=== PATIENT | male | born 1990 | race Caucasian/White ===

== ENCOUNTER 2020-02-18 21:51 | Emergency (ER) | payer OTHER, SELFPAY ==
[2020-02-18 21:54] VITALS: BP 142/99; PULSE 93; RESP 16; TEMP 37.4; O2SAT 96; BMI 18.7
[2020-02-18 22:15] VITALS: RESP 18
[2020-02-18 23:03] LABS: Hematocrit 40.5 % (42-52); Hemoglobin 13.2 g/dl (14.0-18.0); Mean Corpuscular HGB Conc 32.6 g/dl (31.0-36.0); Mean Corpuscular Volume 95.1 fL (80-98); Mean Platelet Volume 10.6 fL (9.4-12.4); Platelet Count 282 X10*3/uL (160-400); Red Blood Count 4.26 X10*6/uL (4.60-5.80); Red Cell Distribution Width 13.2 % (11.0-16.0); WBC ABN SCTR FOR CBC 1
[2020-02-18] MEDS: LORazepam 1 MG TABLET PO (23:09)
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
[2020-02-18 23:32] LABS: White Blood Count 10.2 X10*3/uL (4.8-10.8)
[2020-02-18 23:35] LABS: Amphetamine Screen Urine Not Detected (Not Detect); Barbiturates, Urine POSITIVE (Not Detect); Benzodiazepines Screen Urine POSITIVE (Not Detect); Cannabinoid Screen Urine POSITIVE (Not Detect); Cocaine Screen Urine POSITIVE (Not Detect); Neutrophils Percent Manual 58 % (45-73); Opiate Screen Urine POSITIVE (Not Detect); Phencyclidine Screen Urine Not Detected (Not Detect)
[2020-02-18 23:36] LABS: Atypical Lymph Absolute Manual 0.2 x10*3/uL; Atypical Lymphs Percent Manual 2 % (0-6); Band Neutrophils Percent 8 % (3-5); Lymphocytes Absolute Manual 2.7 X10*3/uL (0.6-4.8); Lymphocytes Percent Manual 26 % (20-40); Monocytes Absolute Manual 0.6 X10*3/uL (0.0-1.2); Monocytes Percent Manual 6 % (2-11); Neutrophils Absolute Manual 6.7 X10*3/uL (2.2-7.9); RBC Morphology NORMAL
[2020-02-18 23:37] LABS: Platelet Estimate NORMAL (NORMAL); Platelet Morphology Comment NORMAL
[2020-02-18 23:41] LABS: Alanine Aminotransferase 46 U/L (0-40); Albumin Level 3.9 g/dL (3.5-5.0); Alkaline Phosphatase 63 U/L (39-117); Anion Gap 13 (12-20); Aspartate Amino Transferase 40 U/L (5-37); Bilirubin Direct 0.2 mg/dL (0.0-0.5); Bilirubin Total 0.3 mg/dL (0.0-1.0); Blood Urea Nitrogen 17 mg/dL (9-16); Calcium 9.1 mg/dL (8.4-10.2); Carbon Dioxide 28 mmol/L (22-29); Chloride 102 mmol/L (96-108); Estimated Glomerular Filt Rate > 60; Glucose Random 84 mg/dL (60-115); Lipase < 4 U/L (8-78); Potassium 3.7 mmol/l (3.3-5.1); Sodium 139 mmol/L (135-145); Total Protein 7.4 g/dL (6.5-8.0)
[2020-02-19] VITALS (8 sets, daily range): BP systolic 106–124; BP diastolic 69–86; PULSE 52–70; RESP 16–18; TEMP 36.4–36.6; O2SAT 97–100
--- NOTE | 2020-02-19 00:17 | PC.NURSE ---
0000 patient sleeping at this time. rousable to voice. two sandwiches brought per request. airway remains patent. patient denies further needs at this time. sitter remains in close obs.
--- NOTE | 2020-02-19 00:58 | PC.NURSE ---
FAXED AND CALLED N. FAX CONFIRMED
--- NOTE | 2020-02-19 02:21 | PC.NURSE ---
ROUSABLE TO VOICE. SLEEPING AT THIS TIME. SKIN P/W/D. AIRWAY PATENT. DENIES NEEDS.
--- NOTE | 2020-02-19 07:46 | PC.NURSE ---
PT IS VAGUE. ANSWERING SOME QUESTIONS ASKED. ADDITIONAL ASSESSMENTS DEFERRED AT THIS TIME.
--- NOTE | 2020-02-19 10:37 | PC.NURSE ---
PT INQUIRING ABOUT [facility] EVAL. DOES EXPRESS INTEREST IN DETOX. SHANNON FROM CARE TEAM AWARE AND WILL ATTEMPT TO GET TEAM TO ASSESS PT. PT HERE FOR 12 HOURS
[2020-02-19] MEDS: LORazepam 1 MG TABLET PO ×2 (10:56→19:25)
--- NOTE | 2020-02-19 11:19 | PC.NURSE ---
Addendum entered by Cordelia Galvan 02/19/20 13:46: SPEAKING WITH [facility] AT THIS TIME Original Note: SPEAKING WITH CARE TEAM AT THIS TIME
[2020-02-19] MEDS: Nicotine Polacrilex 2 MG GUM BUCCAL (11:22)
--- NOTE | 2020-02-19 14:07 | PC.NURSE ---
PT SLEEPING, PT OBSERVER AT BEDSIDE. EATS BEDSEARCH
--- NOTE | 2020-02-19 14:45 | PC.NURSE ---
RN TO RN WITH AMALIA
--- NOTE | 2020-02-19 15:53 | PC.NURSE ---
Pt states he has not taken home meds in months.
--- NOTE | 2020-02-19 20:04 | PC.NURSE ---
Patient in bed lying, per report scored 6 on CIWA provider notified, ordered ativan 1 mg/administered as ordered. Will monitor the patient for withdrawal symptoms.
--- NOTE | 2020-02-19 21:56 | PC.NURSE ---
Patient in bed lying, compliant with vital assessment/unremarkable. Monitored for withdrawal/asymptomatic currently. Requested nicotine lozenge/provider notified/administered as ordered. Will continue to monitor.
--- NOTE | 2020-02-20 01:41 | PC.NURSE ---
Patient in bed appears sleeping, no distress observed/reported, currently monitored for withdrawal/asymptomatic, respiration +/=/non-labored bilaterally. Will continue to monitor.
[2020-02-20 02:30] VITALS: BP 117/81; PULSE 74; RESP 17; TEMP 36.8; O2SAT 100
[2020-02-20] MEDS: Nicotine Polacrilex 2 MG GUM BUCCAL (02:33)
[2020-02-20] MEDS: LORazepam 1 MG TABLET PO (02:33)
--- NOTE | 2020-02-20 02:35 | PC.NURSE ---
Patient symptomatic of withdrawal, scored 10 on COWS, provider notified/ordered Ativan 1 mg/administered as ordered. Will continue to monitor.
--- NOTE | 2020-02-20 04:47 | PC.NURSE ---
Patient in bed appears sleeping, no distress observed/reported, respiration +/=/non-labored bilaterally. Safety check maintained as ordered. Asymptomatic of withdrawal. Will continue to monitor.
--- NOTE | 2020-02-20 06:34 | PC.NURSE ---
Patient in bed appears sleeping. No distress observed/reported. Monitored for withdrawal/asymptomatic currently. Respiration +/=/non-labored bilaterally. Will continue to monitor.
[2020-02-20 09:46] VITALS: BP 95/59; PULSE 66; RESP 20; TEMP 36.3; O2SAT 97
== END 2020-02-20 10:08 | disposition home or self-care (01) ==
PROVIDERS: Emergency Provider Emergency Medicine
DX: F32.89 Other specified depressive episodes (principal); R45.851 Suicidal ideations; F14.10 Cocaine abuse, uncomplicated; F12.10 Cannabis abuse, uncomplicated; F11.10 Opioid abuse, uncomplicated; F17.200 Nicotine dependence, unspecified, uncomplicated
CPT/HCPCS: 36415; 80048; 80076; 80307; 83690; 85007; 85027; 99285

== ENCOUNTER 2023-12-08 12:52 | Emergency (ER) | payer OTHER, SELFPAY ==
[2023-12-08 13:00] VITALS: BP 184/82; PULSE 114; O2SAT 99
[2023-12-08 13:09] VITALS: BP 000/00; PULSE 0; RESP 22; TEMP 37; O2SAT 0; BMI 32.1
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
--- OUTSIDE RECORDS SUMMARY | 2023-12-08 13:24 | XMS_ITS | Continuity of Care Document ---
Author Organization [facility] Address [address] [place] [phone] Phone Care Team Providers Care Population Geneticist Name Role Phone MD Leander Desai Attending Provider [phone] DO Eugenio Ordonezyele K Primary Care Provider DO José Luis Akinyele K Referring Provider Care Teams Patient Care Team Team Status: Active Member Role Status Al Ordonez DO Primary Care Provider Active Visit Care Team Team Status: Active Member Role Status Al Ordonez DO Primary Care Provider Active Leander Desai MD Attending Provider Active Visit Care Team Team Status: Active Member Role Status Al Ordonez DO Primary Care Provider, Referr ing Provider Active Leander Desai MD Attending Provider Active Visit Care Team Team Status: Active Member Role Status Al Desai MD Attending Provider Active Gabi Ordonez DO Primary Care Provider Active Chief Complaint and Reason for Visit Chief Complaint Radiculopathy, LBP ( M54.17) Amb Documentation CONF. f/u requested by patient. 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 Fever Active Oral pain Active Alcohol dependence, continuous A ctive Opioid use disorder Active Opioid use disorder Active Alcohol use disorder Active Mild benzodiazepine use disorder Active Lymphadenopathy Active Paresthesia of right leg Active Continuous nicotine dependence A ctive Tobacco abuse Active Post-splenectomy Active Active intravenous drug use Acti ve Polysubstance abuse Active Abscess, dental Active Chest pain Active Inactive/Resolved Problems Medical Problem Onset Date Status Encounter for medication refill Resolved Fever Resolved Alcohol abuse Resolved Anxiety Resolved Alcohol use disorder Resolved Heroin use disorder, severe Reso lved Blister of forearm, right Resolv ed Medications Medication Status Dose Units Route Directions Qty Days St art Date End Date Instructions Pregabalin Discontin ued 150 MG PO three times a day August 14, 2022 12:00am August 14, 2022 3:11pm Pregabalin Discontin ued 200 MG PO three times a day 90 August 14, 2022 12:00am September 30, 2022 3:34pm Partial fill upon patient request. This medication has a sedative effect, causing drowsiness, dizziness or light-headedn ess and may affect the ability to drive or operate machinery safely. Use of alcohol or cannabis while taking this medicine can result in increased sedative effect and greater impediment to driving or operating machinery safely. Pregabalin Active 300 MG PO twice a day 120 M 2022 12:00am Cyclobenzapri ne Active 10 MG PO three times a day 180 September 30, 2022 12:00am 1 pill (5 mg) 3 times daily as needed. May increase to 2 pills (10 mg) 3 times daily as needed. Duloxetine Discontin ued 20 MG PO twice a day 60 September 29, 2022 12:00am September 30, 2022 2:41pm Start one pill daily. After one week increase to one pill twice daily. Methadone Active 40 MG PO daily November 29, 2019 12:00am Loperamide Discontin ued 2 MG PO every 2-4 hours 20 [facility] [place] 2019 12:00am August 14, 2022 2:08pm after each loose stool until symptoms controlled; do not exceed 8 mg total dose in 24 hrs Ibuprofen Active 800 MG PO every 6 hr (04,10,16,2 2) 60 [facility] 2019 12:00am Ondansetron Discontin ued 4 MG PO every 6 hr (04,10,16,2 2) 20 [facility] 2019 12:00August 14, 2022 2:08pm Metoclopramid e Hcl (Reglan) 10 mg tablet Discontin ued 10 MG PO every 6 hr (04,10,16,2 2) 20 March 13, 2020 12:00am Novemb er 2019 1:02am Clonidine Hcl Discontin ued 0.1 MG PO twice a day 6 March 13, 2020 12:00am Octobe r 2019 12:02a m Clonidine Hcl Discontin ued 0.1 MG PO three times a day 9 Novembe r 2019 1:00am August 14, 2022 2:08pm Folic Acid Discontin ued 1 MG PO daily January 08, 2020 12:00am August 14, 2022 2:08pm Amoxicillin-P ot Clavulanate Discontin ued 1 TAB PO every 12 hours January 08, 2020 12:00am January 14, 2020 10:36a m Thiamine Mononitrate (Vit B1) (Vitamin B-1 (Mononitrate) ) 100 mg Tablet Discontin ued 100 MG PO daily January 08, 2020 12:00am August 14, 2022 2:08pm Amoxicillin-P ot Clavulanate Discontin ued 1 TAB PO every 12 hours 05 03January 14, 2020 10:36am January 14, 2020 10:37a m Amoxicillin-P ot Clavulanate Discontin ued 1 TAB PO every 12 hours 05 03January 14, 2020 10:37am July 20, 2022 1:30pm Immunizations Immunization Event Date Not Given Reason Dose Number [employer] Lot Number Vaccine Information Statement (VIS) Detail Influenza, MDCK, Quad, w/ Preservative February 26, 2022 COVID-19 VACC Pfizer December 06, 2020 COVID-19 VACC Pfizer December 27, 2020 COVID-19 VACC Pfizer Tri-sucrose August 15, 2021 Influenza, quadrivalent, with preservative February 14, 2017 Vital Signs Vital Reading Result Reference Range Collection Date/Time Height 74 [in_i] September 30, 2022 2:41pm Weight 102.05 kg September 30, 2022 2:41pm Body Temperature 98.1 [degF] 97.5-99.6 September 30, 2 023 2:41pm Heart Rate 100 /min 50-90 September 30, 2022 2:41pm Respiratory rate 16 /min 14-20 September 30, 2 023 2:41pm Oxygen saturation by Pulse oximetry 96 % 90-10 0 September 30, 2022 2:41pm BP Systolic 128 mm[Hg] 90-130 September 30, 2022 2:41pm BP Diastolic 78 mm[Hg] 60-90 September 30, 2022 2:41pm BMI (Body Mass Index) 28.8 kg/m2 September 302022 2:41pm Insurance Providers Guarantor Kyle Young Address [address] [address] Contact Info. Home Phone: Payer Policy Id Coverage Id Subscriber's Name Subscriber Id Effective Date Expiration Date [employer] Nhp [id number] Kyle Peich [id number] [facility] Careplus [id number] Kyle Borregoch [id number] [place] Non Managed Care [id number] Kyle Borregoch [id number] [facility] [id number] Kyle Peich [id number] [facility] Q [id number] Kyle Borregoch Self Pay Insurance Self N/A [employer] [id number] Kyle Peich [id number] Encounters Encounter Location(s) Arrival/Admit Date Discharge/Depart Date Provider(s) Registered [facility] [place] September 24, 2022 2:30pm LEANDER DESAI MD Non-patient / Non-visit [place] [facility]-Ambulat ory Sched (DO NOT USE) September 29, 2022 9:31am LEANDER DESAI MD Non-patient / Non-visit [facility] September 30, 2022 2:36pm LEANDER DESAI MD Recent Diagnosis Onset Date Lumbosacral radiculopathy at S1 Assessments Diagnosis Onset Date Resolution Status Lumbosacral radiculopathy at S1 noneactive Plan of Treatment Future Tests Future scheduled test information is unavailable Pending Tests Pending diagnostic test information is unavailable Future Visits Future appointment information is unavailable Referrals to Other Providers Reason for Referral Referral Start Date Provider Provider Contact Information Provider Address U92.17 - Radiculopathy, lumbosacral region September 30, 2022 Suhail Coyne MD Work Phone: [phone] [facility] PAIN MANAGEMENT [facility] [address] Future Procedures Future procedure information is unavailable Future Medications Future medication information is unavailable Patient Instructions Patient instructions are unavailable Hospital Discharge Instructions Ambulatory Orders* Pain management referral Time Frame: 09/30/22, Location: None Selected
--- OUTSIDE RECORDS SUMMARY | 2023-12-08 13:24 | XMS_ITS | Continuity of Care Document ---
Author Organization [facility] Address [address] [place] [phone] Phone Care Team Providers Care Box Truck Driver Name Role Phone MD Leander Desai Attending Provider DO Eugenio Ordonezyele K Primary Care Provider [...] f/u requested by patient. 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 Inactive/Resolved Problems Medical Problem Onset Date [...] 2 MG PO every 2-4 hours 20 [facility] [place] [place] 2019 12:00am August 14, 2022 2:08pm after each loose stool until symptoms controlled; do not exceed 8 mg total dose in 24 hrs Ibuprofen Active 800 MG PO every 6 hr (04,10,16,2 2) 60 [facility] [place] [place] 2019 12:00am Ondansetron Discontin ued 4 MG PO every 6 hr (04,10,16,2 2) 20 [facility] [place] [place] 2019 12:00am August 14, 2022 2:08pm Metoclopramid e Hcl (Reglan) [...] Event Date Not Given Reason Dose Number Fire [employer] 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 Home Phone: Payer Policy Id Coverage Id Subscriber's Name Subscriber Id Effective Date Expiration Date [employer] Nhp [id number] Kyle Young [id number] [facility] Careplus [id number] Kyle Young [id number] [place] Non Managed Care [id number] Kyle Young [id number] [place] [id number] Kyle Young [id number] [facility] Q [id number] Kyle Young Self Pay Insurance Self N/A [employer] [id number] Kylefranco Young [id number] Encounters Encounter Location(s) Arrival/Admit Date Discharge/Depart Date Provider(s) Registered [facility] [place] September 24, 2022 2:30pm LEANDER DESAI MD Non-patient / Non-visit [place] [facility]-Ambulat ory Sched (DO NOT USE) September 29, 2022 9:31am LEANDER DESAI MD Non-patient / Non-visit [facility] September 30, 2022 2:36pm LEANDER DESAI MD Recent Diagnosis Onset Date Low testosterone in male Lumbosacral radiculopathy at S1 Assessments Diagnosis Onset Date Resolution Status Low testosterone in male non eactive Lumbosacral radiculopathy at S1 noneactive Plan of Treatment Future Tests Future scheduled test information is unavailable Pending Tests Pending diagnostic test information is unavailable Future Visits Future appointment information is unavailable Referrals to Other Providers Reason for Referral Referral Start Date Provider Provider Contact Information Provider Address M54.17 - Radiculopathy, lumbosacral region,R79.89 - Other specified abnormal findings of blood chemistry September 30, 2022 [facility] Endocrinology M54.17 - Radiculopathy, lumbosacral region September 30, 2022 Suhail Coyne MD Work Phone: [address] [place] [address] [address]LO[address] [facility] PAIN MANAGEMENT [facility] [address] Future Procedures Future procedure information is unavailable Future Medications Future medication information is unavailable Patient Instructions Patient instructions are unavailable Hospital Discharge Instructions Ambulatory Orders* Endocrinology referral Time Frame: 09/30/22, Location: None Selected * Pain management referral Time Frame: 09/30/22, Location: None Selected
--- OUTSIDE RECORDS SUMMARY | 2023-12-08 13:24 | XMS_ITS | Continuity of Care Document ---
Author Organization [facility] Address [address] [place] [address] Phone Care Team Providers Care Enhanced Environmental Operator Name Role Phone DO Eugenio Ordonezyele K Primary Care Provider José Luis, DO Akinyele K Referring Provider DIANDRA Cronin Attending Provider Care Teams Patient Care Team Team Status: Active Member Role Status Al Coyne MD Pain Clinic, MD Active Rachelle Nicholas NP Pain Clinic, DIRECTOR CORPORATE Active Gabi Ordonez DO Primary Care Provider Active Patient Care Team Team Status: Active Member Role Status Dates Gabi Ordonez , DO Primary Care Provider Active Ko Cronin , IT SOLUTIONS ARCHITECT Attending Provider Active Visit Care Team Team Status: Active Member Role Status Dates Gabi Ordonez , DO Primary Care Provider, Referr ing Provider Active Ko Cronin IT SOLUTIONS ARCHITECT Attending Provider Active Visit Care Team Team Status: Inactive Member Role Status Dates Gabi Ordonez , DO Primary Care Provider Active Ko Cronin , IT SOLUTIONS ARCHITECT Attending Provider Active Chief Complaint and Reason for Visit Chief Complaint CONF 02/24 F/u Dr Nicolas astudillo's pt. LABWORK Reason for Visit Lumbosacral radiculo shruti at S1 Allergies, Adverse Reactions, Alerts No known allergies Social History Smoking Status Status Start Date End Date Date of Observa tion Smoker (finding) February 10:58am Additional Data Assigned Sex Male Problems Active [...] to driving or operating machinery safely. Pregabalin Discontin ued 300 MG PO twice a day 120 September 30, 2022 12:00am 2022 4:04pm Cyclobenzapri ne Discontin ued 10 MG PO three times a day 180 September 30, 2022 12:00am October 06, 2022 3:51pm 1 pill (5 mg) 3 times daily as needed. May increase to 2 pills (10 mg) 3 times daily as needed. Pregabalin Discontin ued 150 MG PO twice a day 60 October 02, 2022 12:00am 2022 4:04pm Take 1 pill (150 mg) in afternoon and evening. Take this in addition to a single 300 mg dose in the morning. Duloxetine Discontin ued 20 MG PO twice a day 60 September 29, 2022 12:00am September 30, 2022 2:41pm Start one pill daily. After one week increase to one pill twice daily. Methadone Discontin ued 40 MG PO daily November 29, 2019 12:00am December 31, 2022 8:24am Methadone Active 115 MG PO daily December 31, 2022 8:23am Loperamide Discontin ued 2 MG PO every 2-4 hours [facility] [place] 12:00am August 14, 2022 2:08pm after each loose stool until symptoms controlled; do not exceed 8 mg total dose in 24 hrs Ibuprofen Active 800 MG PO every 6 hr (04,10,16,2 2) 60 [facility] [place] 2019 12:00am Ondansetron Discontin ued 4 MG PO every 6 hr (04,10,16,2 2) 20 [facility] [place] 2019 12:00am August 14, 2022 2:08pm Metoclopramid e Hcl (Reglan) 10 mg tablet Discontin ued 10 MG PO every 6 hr (04,10,16,2 2) 03 10March 13, 2020 12:00am Novem er 2019 1:02am Clonidine Hcl Discontin ued 0.1 MG PO twice a day 6 March 13, 2020 12:[facility]am [facility] 12:02a m Clonidine Hcl Discontin ued 0.1 MG PO three times a day 9 [facility] r 2019 1:00am August 14, 2022 2:08pm [...] 14, 2020 10:37am July 20, 2022 1:30pm Pregabalin Active 300 MG PO twice a day 120 [facility] 2022 4:04pm Pregabalin Active 150 MG PO twice a day 60 [facility] 2022 4:04pm Take 1 pill (150 mg) in afternoon and evening. Take this in addition to a single 300 mg dose in the morning. Immunizations Immunization Event Date Not Given Reason Dose Number Seismograph Helper Lot Number Vaccine Information Statement (VIS) Detail Influenza, MDCK, Quad, w/ Preservative February 26, 2022 COVID-19 VACC Pfizer December 06, 2020 COVID-19 VACC Pfizer December 27, 2020 COVID-19 VACC Pfizer Tri-sucrose August 15, 2021 Influenza, quadrivalent, with preservative February 14, 2017 Relevant Diagnostic Tests and/or Laboratory Data Laboratory Results Test Date/Time Result Interpretation Reference Range Result Comment Performing Site White Blood Count February 25, 2023 11:48am 8.1 K/mm3 4.0-11.0 [place] [id number] [address] [place] [address]34 Red Blood Count February 25, 2023 11:48am 5.35 M/uL 4.20-5.80 [place] [id number] [address] [place] [address] 18091 Hemoglobin February 25, 2023 11:48am 16.7 gm/dL 12.5-17.0 [facility] [id number] [address] [place] [address]64 Hematocrit February 25, 2023 11:48am 51.5 % 37.0-50.0 [facility] [id number] [address] [place] [address] 48991 Mean Corpuscular Volume February 25, 2023 11:48am 96.3 FL 80.0-100.0 [facility] [id number] [address] [place] [address] 85246 Mean Corpuscular Hemoglobin Concent February 25, 2023 11:48am 32.4 % 32-37 [facility] [id number] [address] [place] [address] 61342 Red Cell Distribution Width February 25, 2023 11:48am 14.9 % 11.5-16.0 [facility] [id number] [address] [place] [address] 62205 Platelet Count February 25, 2023 11:48am 331 K/uL 140-400 [place] [id number] [address] [place] [address] 16624 Mean Platelet Volume February 25, 2023 11:48am 10.9 FL 8.6-12.5 [facility] [id number] [address] [place] [address] 76897 Nucleated Red Blood Cells % (auto) February 25, 2023 11:48am 0.0 % 0.0-0.7 [place] [id number] [address] [place] [address] 76128 Neutrophils (%) (Auto) February 25, 2023 11:48am 45.3 % [address] [place] [address] 88323 Lymphocytes (%) (Auto) February 25, 2023 11:48am 38.7 % [place] [id number] [address] [place] [address] 60592 Monocytes (%) (Auto) February 25, 2023 11:48am 11.4 % [id number] [place] [address] 36707 Eosinophils (%) (Auto) February 25, 2023 11:48am 3.1 % [id number] [place] [address] 39805 Basophils (%) (Auto) February 25, 2023 11:48am 1.4 % [id number] [place] [address] 98173 Immature Granulocyte % (Auto) February 25, 2023 11:48am 0.1 % [place] [id number] [address] [place] [address]24 Neutrophils # (Auto) February 25, 2023 11:48am 3.65 K/uL 1.50-7.50 [place] [id number] [address] [place] [address] 78255 Lymphocytes # (Auto) February 25, 2023 11:48am 3.12 K/uL 1.00-4.50 [place] [id number] [address] [place] [address] 40513 Monocytes # (Auto) February 25, 2023 11:48am 0.92 K/uL 0.00-0.80 [address] [place] [address] 56536 Eosinophils # (Auto) February 25, 2023 11:48am 0.25 K/uL 0.00-0.40 [place] [id number] [address] [place] [address] 15424 Basophils # (Auto) February 25, 2023 11:48am 0.11 K/uL 0.00-0.20 [facility] [id number] [address] [place] [address] 15045 Immature Granulocyte # (Auto) February 25, 2023 11:48am 0.01 K/uL 0.00-0.10 [facility] [id number] [address] [place], [place] [address] Hemoglobin A1c February 25, 2023 11:48am 5.3 % 4.4-6.3 [facility] [id number] [address] [place] [address] 88886 Sodium Level February 25, 2023 11:48am 139 mEq/L 133-145 [facility] [id number] [address] [place] [address] 65592 Potassium Level February 25, 2023 11:48am 4.7 mEq/L 3.5-5.1 Please note new reference range. [facility] [id number] [address] [place] [address] Chloride Level February 25, 2023 11:48am 102 mEq/L 98-107 [facility] [id number] [address] [place] [address] 28277 Carbon Dioxide Level February 25, 2023 11:48am 31 mEq/L 22-31 [facility] [id number] [address] [place] [address] 69997 Anion Gap February 25, 2023 11:48am 6 mEq/L 5-15 [facility] [id number] [address] [place], [place] [address] Blood Urea Nitrogen February 25, 2023 11:48am 12 mg/dL 9-21 Please note new reference range. [facility] [id number] [address] [place], [place] [address] Creatinine February 25, 2023 11:48am 1.13 mg/dL 0.00-1.30 [facility] [id number] [address] [place], [place] [address] Pharmacy Creatinine Clearance (Chem February 25, 2023 11:48am Not Reportable [facility] [id number] [address] [place], [place] [address] Estimat Glomerular Filtration Rate February 25, 2023 11:48am > 60 Units: mL/min/1.73 [id number] GFR (eGFR) should not be used for patients with acute kidney injury or ESRD (creatinine should be at steady state and stable to use). eGFR is calculated using the National Kidney Foundation 2020 CKD-EPI creatinine equation, which is now the recommended equation to estimate GFR based on creatinine per latest KDIGO (Kidney Disease Improving Global Outcomes) Guidelines. KDIGO recommends CKD now be classified based on cause, GFR category, and albuminuria category. GFR categories will not be reported by the lab for G1 or G2 (eGFR >60). GFR categories should be assigned as: eGFR 45-59= G3a (mildly to moderately decreased), eGFR 30-44= G3b (moderately to severely decreased), eGFR 15-29 G4 (severely decreased), eGFR<15 G5 (kidney failure). [facility] [id number] [address] [place] [address] 77745 Glucose Level February 25, 2023 11:48am 85 mg/dL 70-100 Fasting Reference Interval: 70-100mg/dLN on-fasting Reference Interval: 70-140mg/dL [place] [id number] [address] [place] [address] Calcium Level February 25, 2023 11:48am 9.6 mg/dL 8.4-10.4 Please note new reference range. [facility] [id number] [address] [place] [address] 31386 Total Bilirubin February 25, 2023 11:48am 0.5 mg/dL 0.2-1.2 [place] [id number] [address] [place] [address] 47572 Direct Bilirubin February 25, 2023 11:48am 0.1 mg/dL 0.0-0.5 [place] [id number] [address] [place] [address] 52216 Aspartate Amino Transf (AST/SGOT) February 25, 2023 11:48am 24 IU/L 5-34 [facility] [id number] [address] [place] [address] 32145 Alanine Aminotransferase (ALT/SGPT) February 25, 2023 11:48am 31 IU/L 0-55 [place] [id number] [address] [place] [address] 33222 Total Protein February 25, 2023 11:48am 7.7 g/dL 6.0-8.3 [place] [id number] [address] [place] [address] 82307 Albumin February 25, 2023 11:48am 3.9 g/dL 2.8-5.4 [facility] [id number] [address] [place] [address] 67526 Alkaline Phosphatase February 25, 2023 11:48am 58 IU/L 40-150 Please note new reference range. [facility] [id number] [address] [place] [address] 96265 Vitamin B12 Level February 25, 2023 11:48am 646 pg/mL 213-816 [facility] [id number] [address] [place] [address] 21285 Folic Acid (LAB) February 25, 2023 11:48am 12.6 ng/mL 7.0-31.4 Please note new reference range. [facility] [id number] [address] [place] [address] 55758 Thyroid Stimulating Hormone (TSH) February 25, 2023 11:48am 1.14 uIU/mL 0.35-4.94 Please note new reference range. [facility] [id number] [address] [place] [address] 54877 Vital Signs Vital Reading Result Reference Range Collection Date/Time Heart Rate 72 /min 50-90 February 25, 2 023 11:00am Respiratory rate 15 /min 14-20 February 11:00am Oxygen saturation by Pulse oximetry 97 % 90-100 February 25, 2023 1 1:00am BP Systolic 123 mm[Hg] 90-130 February 25, 2 023 11:00am BP Diastolic 75 mm[Hg] 60-90 February 25, 2 023 11:00am Insurance Providers Guarantor Kyle Young Address [address] [address] Contact Info. Home Phone: Payer Policy Id Coverage Id Subscriber's Name Subscriber Id Effective Date Expiration Date [employer] [id number] Kyle Young [id number] [facility] Careplus [id number] Kyle Young [id number] [facility] Medicaid Non Managed Care [id number] Kyle Young [id number] [facility] [id number] Kyle Young [id number] [facility] [id number] Kyle Young [facility] [id number] Kylefranco Young [id number] [facility] [id number] Kyle Young [id number] Self Pay Insurance Self N/A [facility] [id number] Kyle Salimasue [id number] [employer] [id number] Kyle Borrego [id number] Encounters Encounter Location(s) Arrival/Admit Date Discharge/Depart Date Provider(s) Non-patient / Non-visit [facility] February 25, 2023 10:51am ANP- Ko Cronin Departed Clinical [facility]-Lab Draw - [facility] February 25, 2023 11:31am February 25, 2023 11:32am JULIANA Cronin Non-patient / Non-visit [facility]-Ambulat ory Sched (DO NOT USE) February 26, 2023 7:52am ANP- Ko Cronin Recent Diagnosis Onset Date Lumbosacral radiculopathy at S1 Assessments Diagnosis Onset Date Resolution Status Lumbosacral radiculopathy at S1 noneactive Plan of Treatment Future Tests Future scheduled test information is unavailable Pending Tests Test Name Ordered Date Scheduled Date Methylmalonic Acid February 25, 2023 11:48am Vitamin B6 Level February 25, 2023 11:48am Thiamine (Vitamin B1) Measured February 25 11:48am Methylmalonic Acid February 25, 2023 11:17am Oc tober 2022 11:48am Future Visits Future appointment information is unavailable Referrals to Other Providers Reason for Referral Referral Start Date Provider Provider Contact Information Provider Address February 26, 2023 Suhail Coyne MD Work Phone: [address] [place], [place] [address] PAIN MANAGEMENT [facility] December 31, 2022 Suhail Coyne MD Work Phone: [address] PAIN MANAGEMENT [facility] [address] February 25, 2023 Prosper Wilson Jr MD Work Phone: [address] [place] [address] NEUROLOGY [facility] [address] M54.17 - Radiculopathy, lumbosacral region February 25, 2023 Physical Therapy - [place] Future Procedures Procedure Name Ordered Date Scheduled Date Vitamin B1(Thiamine), LC/MS/MS February 25 11:17am February 25, 2023 11:48am Vitamin B6 (pryidoxine) February 25, 2023 11:17 am February 25, 2023 11:48am Future Medications Future medication information is unavailable Patient Instructions Patient instructions are unavailable Hospital Discharge Instructions Ambulatory Orders* AUSTIN ESTEVAN Lumbar Time Frame: 02/26/23, Location: None Selected
--- OUTSIDE RECORDS SUMMARY | 2023-12-08 13:24 | XMS_ITS | Continuity of Care Document ---
Author Organization [facility] Address [address] [place] [phone] Phone Care Team Providers Care Supervisor Mapping Name Role Phone DO Gabi Ordonez Primary Care Provider DO Gabi Ordonez Referring Provider DIANDRA Nicholas Attending Provider [phone] Care Teams Patient Care Team Team Status: Active Member Role Status Al Coyne MD Pain Clinic, MD Active Rachelle Nicholas NP [facility] Clinic, TRAVEL PTA Active Gabi Ordonez DO Primary Care Provider Active Patient Care Team Team Status: Active Member Role Status Al Ordonez DO Primary Care Provider, Referr ing Provider Active Rachelle Nicholas NP Attending Provider Active Chief Complaint and Reason for Visit Chief Complaint conf f/u wants anoth er injection Reason for Visit Lumbosacral radiculo shruti at S1 Myofascial muscle pain Allergies, Adverse Reactions, Alerts No known allergies Social History Smoking Status Status Start Date End Date Date of Observa tion Smoker (finding) May 3:49pm Additional Data Assigned Sex Male Problems Active [...] nicotine dependence A ctive Tobacco abuse Active Myofascial muscle pain Active Post-splenectomy Active Active intravenous drug use [...] MG PO three times a day August 13, 2022 11:00pm August 14, 2022 2:11pm Pregabalin Discontin ued 200 MG PO three times a day 90 August 13, 2022 11:00pm September 30, 2022 2:34pm Partial fill upon patient request. This medication has a sedative effect, causing drowsiness, dizziness or light-headedn ess and may affect the ability to drive or operate machinery safely. Use of alcohol or cannabis while taking this medicine can result in increased sedative effect and greater impediment to driving or operating machinery safely. Pregabalin Discontin ued 300 MG PO twice a day 120 September 29, 2022 11:00pm 2022 3:04pm Cyclobenzapri ne Discontin ued 10 MG PO three times a day 180 September 29, 2022 11:00pm October 06, 2022 2:51pm 1 pill (5 mg) 3 times daily as needed. May increase to 2 pills (10 mg) 3 times daily as needed. Pregabalin Discontin ued 150 MG PO twice a day 60 October 01, 2022 11:00pm 2022 3:04pm Take 1 pill (150 mg) in afternoon and evening. Take this in addition to a single 300 mg dose in the morning. Duloxetine Discontin ued 20 MG PO twice a day 60 September 28, 2022 11:00pm September 30, 2022 1:41pm Start one pill daily. After one week increase to one pill twice daily. Methadone Discontin ued 40 MG PO daily November 28, 2019 11:00pm December 31, 2022 7:24am Methadone Active 120 MG PO daily December 31, 2022 7:23am Loperamide Discontin ued 2 MG PO every 2-4 hours 2019 11:00pm August 14, 2022 1:08pm after each loose stool until symptoms controlled; do not exceed 8 mg total dose in 24 hrs Ibuprofen Active 800 MG PO every 6 hr (04,10,16,2 2) 60 [facility] [place] 11:00pm Ondansetron Discontin ued 4 MG PO every 6 hr (04,10,16,2 2) 20 [facility] 2019 11:00pm August 14, 2022 1:08pm Metoclopramid e Hcl (Reglan) 10 mg tablet Discontin ued 10 MG PO every 6 hr (04,10,16,2 2) 03 10March 12, 2020 11:00pm [facility] 2019 12:02a m Clonidine Hcl Discontin ued 0.1 MG PO twice a day 6 March 12, 2020 11:00pm [facility] 11:02p m Clonidine Hcl Discontin ued 0.1 MG PO three times a day 9 2019 12:00am August 14, 2022 1:08pm Folic Acid Discontin ued 1 MG PO daily January 07, 2020 11:00pm August 14, 2022 1:08pm Amoxicillin-P ot Clavulanate Discontin ued 1 TAB PO every 12 hours January 07, 2020 11:00pm January 14, 2020 9:36am Thiamine Mononitrate (Vit B1) (Vitamin B-1 (Mononitrate) ) 100 mg Tablet Discontin ued 100 MG PO daily January 07, 2020 11:00pm August 14, 2022 1:08pm Amoxicillin-P ot Clavulanate Discontin ued 1 TAB PO every 12 hours 05 03January 14, 2020 9:36am January 14, 2020 9:37am Amoxicillin-P ot Clavulanate Discontin ued 1 TAB PO every 12 hours 05 03January 14, 2020 9:37am July 20, 2022 12:30p m Pregabalin Discontin ued 300 MG PO twice a day 120 [facility] 2022 3:04pm [facility] 2022 8:47am Pregabalin Discontin ued 150 MG PO twice a day 60 [facility] 2022 3:04pm [facility] 2022 8:47am Take 1 pill (150 mg) in afternoon and evening. Take this in addition to a single 300 mg dose in the morning. Pregabalin Discontin ued 300 MG PO twice a day 120 [facility] r 2022 8:47am Novemb er 2022 10:27a m Pregabalin Discontin ued 150 MG PO twice a day 60 Novem r 2022 8:47am Januar y 2023 11:37a m Take 1 pill (150 mg) in afternoon and evening. Take this in addition to a single 300 mg dose in the morning. Pregabalin Discontin ued 300 MG PO daily 30 Novem r 2022 10:26am Novemb er 2022 10:28a m Pregabalin Active 300 MG PO daily 30 Novem e r 2022 10:27am Take 2 (300mg) capsule in the morning. Immunizations Immunization Event Date Not Given Reason Dose Number Inspector Outside Production Lot Number Vaccine Information Statement (VIS) Detail Influenza, MDCK, Quad, w/ Preservative February 26, 2022 COVID-19 VACC Pfizer December 06, 2020 COVID-19 VACC Pfizer December 27, 2020 COVID-19 VACC Pfizer Tri-sucrose August 15, 2021 Influenza, quadrivalent, with preservative February 14, 2017 Vital Signs Vital Reading Result Reference Range Collection Date/Time Body Temperature 98.1 [degF] 97.5-99.6 May 11:18am Heart Rate 83 /min 50-90 June 16, 024 11:18am Respiratory rate 16 /min 14-20 May 11:18am Oxygen saturation by Pulse oximetry 95 % 90-100 June 16, 2023 1 1:18am BP Systolic 122 mm[Hg] 90-130 June 16, 2 024 11:18am BP Diastolic 74 mm[Hg] 60-90 June 16, 2 024 11:18am Insurance Providers Guarantor Kyle Young Address [address] [id number] Contact Info. Home Phone: Payer Policy Id Coverage Id Subscriber's Name Subscriber Id Effective Date Expiration Date [place] [employer] [facility] [id number] Kyle Young [id number] [facility] [id number] Kyle Young [id number] [facility] Medicaid Non Managed Care [id number] Kyle Young [id number] [place] [facility] [id number] Kyle Young [id number] [facility] Q [id number] Kyle Young [facility] [id number] Kyle Peich [id number] [facility] Dir Subsidized [id number] Kyle Young [id number] Self Pay Insurance Self N/A [facility] [id number] Kyle Peich [id number] [employer] [id number] Kyle Peich [id number] Encounters Encounter Location(s) Arrival/Admit Date Discharge/Depart Date Provider(s) Non-patient / Non-visit [facility] June 16, 2023 11:13am Rachelle Nicholas NP Recent Diagnosis Onset Date Lumbosacral radiculopathy at S1 Myofascial muscle pain Assessments Diagnosis Onset Date Resolution Status Lumbosacral radiculopathy at S1 noneactive Myofascial muscle pain nonea ctive Plan of Treatment Future Tests Future scheduled test information is unavailable Pending Tests Test Name Ordered Date Scheduled Date XR lumbar spine with flex/ext June 16, 2023 11:25am Future Visits Future appointment information is unavailable Referrals to Other Providers Reason for Referral Referral Start Date Provider Provider Contact Information Provider Address M54.17 - Radiculopathy, lumbosacral region June 16, 2023 [facility] [address] [place] [address] [address] [facility] [address] M54.17 - Radiculopathy, lumbosacral region June 16, 2023 Rl Houston MD Work Phone: [facility] Neurology Prof Services [address] [place] [address] M54.17 - Radiculopathy, lumbosacral region June 16, 2023 Suhail Coyne MD Work Phone: [address] [place] [address] PAIN MANAGEMENT [facility] [address] Future Procedures Procedure Name Ordered Date Scheduled Date Discharge per unit specific guidelines March 10, 2023 1:59pm March 10, 2023 1:59pm Future Medications Future medication information is unavailable Patient Instructions BFS Pain, Injection/Denervat ion, Post Op Discharge Instructions Hospital Discharge Instructions Ambulatory Orders* Osteopathic medicine referral Time Frame: 06/16/23, Location: None Selected * [facility] Referral Time Frame: 06/16/23, Location: None Selected
--- OUTSIDE RECORDS SUMMARY | 2023-12-08 13:24 | XMS_ITS | Continuity of Care Document ---
Author Organization [facility] Address [address] [place] [phone] Phone Care Team Providers Care Hpl[facility] Chemist Name Role Phone DO Gabi Ordonez Primary Care Provider DO Gabi Ordonez Referring Provider MD Suhail Coyne Attending Provider Care Teams Patient Care Team Team Status: Active Member Role Status Dates Suhail Coyne MD Pain Clinic, MD Active Rachelle Nicholas NP Pain Clinic, DIRECTOR MEETINGS Active Gabi Ordonez DO Primary Care Provider Active Visit Care Team Team Status: Active Member Role Status Al Ordonez DO Primary Care Provider, Referr ing Provider Active Suhail Coyne MD Attending Provider Active Chief Complaint and Reason for Visit Chief Complaint tpi Allergies, Adverse Reactions, Alerts No known allergies Social History Smoking Status Status Start Date End Date Date of Observa tion Smoker (finding) June 11:25am Additional Data Assigned Sex Male Problems Active [...] 300 mg dose in the morning. Pregabalin Active 300 MG PO at bedtime 30 2023 12:00am Partial fill upon patient request. This medication has a sedative effect, causing drowsiness, dizziness or light-headedn ess and may affect the ability to drive or operate machinery safely. Use of alcohol or cannabis while taking this medicine can result in increased sedative effect and greater impediment to driving or operating machinery safely. Duloxetine Discontin ued 20 MG PO twice [...] [facility] August 14, 2022 1:08pm after each loose stool until symptoms controlled; do not exceed 8 mg total dose in 24 hrs Ibuprofen Active 800 MG PO every 6 hr (04,10,16,2 2) 60 [facility] [place] 11:00pm Ondansetron Discontin ued 4 MG PO every 6 hr (04,10,16,2 2) [facility] 11[facility] August 14, 2022 1:08pm Metoclopramid e Hcl (Reglan) 10 mg tablet Discontin ued 10 MG PO every 6 hr (04,10,16,2 2) 03 10March 12, 2020 11:00pm [facility] er 2019 12:02a m Clonidine Hcl Discontin ued 0.1 MG PO twice a day 10 17March 12, 2020 [facility] 11:02p m Clonidine Hcl Discontin ued 0.1 MG PO three times a day 9 [facility] r 2019 12:00am August 14, 2022 1:08pm Folic [...] 300 MG PO twice a day 120 [facility] [place] 2022 3:04pm [facility] er 2022 8:47am Pregabalin Discontin ued 150 MG PO twice a day 60 [place] er 2022 3:04pm Novemb er 2022 8:47am Take 1 pill (150 mg) in afternoon and evening. Take this in addition to a single 300 mg dose in the morning. Pregabalin Discontin ued 300 MG PO twice a day 120 be r 2022 8:47am Novemb er 2022 10:27a m Pregabalin Discontin ued 150 MG PO twice a day 60 r 2022 8:47am Januar y 2023 11:37a m Take 1 pill (150 mg) in afternoon and evening. Take this in addition to a single 300 mg dose in the morning. Pregabalin Discontin ued 300 MG PO daily 30 r 2022 10:26am Novemb er 2022 10:28a m Pregabalin Discontin ued 300 MG PO daily 30 r 2022 10:27am Februa ry 2023 7:55am Take 2 (300mg) capsule in the morning. Pregabalin Active 300 MG PO daily 30 r y 2023 7:55am Take 2 (300mg) capsule in the morning. Immunizations Immunization Event Date Not Given Reason Dose Number [facility] Lot Number Vaccine Information Statement (VIS) Detail Influenza, MDCK, Quad, w/ Preservative February 26, 2022 COVID-19 VACC Pfizer December 06, 2020 COVID-19 VACC Pfizer December 27, 2020 COVID-19 VACC Pfizer Tri-sucrose August 15, 2021 Influenza, quadrivalent, with preservative February 14, 2017 Vital Signs Vital Reading Result Reference Range Collection Date/Time Heart Rate 82 /min 50-90 June 25 2 024 1:06pm Respiratory rate 16 /min 14-20 June 1:06pm Oxygen saturation by Pulse oximetry 95 % 90-100 June 25, 2023 1 :06pm BP Systolic 116 mm[Hg] 90-130 June 25 2 024 1:06pm BP Diastolic 78 mm[Hg] 60-90 June 25 2 024 1:06pm Insurance Providers Guarantor Kyle Young Address [address] [address] Contact Info. Home Phone: Payer Policy Id Coverage Id Subscriber's Name Subscriber Id Effective Date Expiration Date [place] [facility] [employer] Cap [id number] Kyle Peich [id number] [facility] Careplus [id number] Kyle Peich [id number] [place] Non Managed Care [id number] Kyle Peich [id number] [facility] [id number] Kyle Peich [id number] [facility] [id number] Kyle Peich [facility] [id number] Kyle Peich [id number] [facility] Dir Subsidized [id number] Kyle Peich [id number] Self Pay Insurance Self N/A [facility] [id number] Kyle Peich [id number] [facility] [id number] Kyle Peich [id number] Encounters Encounter Location(s) Arrival/Admit Date Discharge/Depart Date Provider(s) Non-patient / Non-visit [facility] June 25, 2023 12:48pm Suhail Coyne MD Plan of Treatment Future Tests Future scheduled test information is unavailable Pending Tests Test Name Ordered Date Scheduled Date XR lumbar spine with flex/ext June 16, 2023 11:25am Future Visits Future appointment information is unavailable Referrals to Other Providers Reason for Referral Referral Start Date Provider Provider Contact Information Provider Address M54.17 - Radiculopathy, lumbosacral region June 16, 2023 [facility] [address] [facility] [address] M54.17 - Radiculopathy, lumbosacral region June 16, 2023 Rl [place] MD Work Phone: [facility] [address] [place] [address] - [address] Floor [facility] [address] M54.17 - Radiculopathy, lumbosacral region,M54.50 - Low back pain, unspecified,M79.60 4 - Pain in right leg,M79.605 - Pain in left leg June 25, 2023 [facility] Work Phone: [address] [facility] [address] Future Procedures Procedure Name Ordered Date Scheduled Date Discharge per unit specific guidelines March 10, 2023 1:59pm March 10, 2023 1:59pm Future Medications Future medication information is unavailable Patient Instructions BFS Pain, Injection/Denervat ion, Post Op Discharge Instructions Hospital Discharge Instructions Ambulatory Orders* Physical Therapy Location: None Selected
--- OUTSIDE RECORDS SUMMARY | 2023-12-08 13:25 | XMS_ITS | Continuity of Care Document ---
Author Organization [facility] Address [address] [place] [phone] Phone Care Team Providers Care Chain Link Fence Installer Name Role Phone DO Gabi Ordonez Primary Care Provider DO Gabi Ordoenz Referring Provider MD Prosper Wilson Attending Provider Care Teams Patient Care Team Team Status: Active Member Role Status Dates Suhail Coyne MD Pain Clinic, MD Active Rachelle Nicholas NP Pain Clinic, EMS INSTRUCTOR Active Gabi Ordonez DO Primary Care Provider Active Visit Care Team Team Status: Active Member Role Status Dates Gabi Ordonez DO Primary Care Provider, Referr ing Provider Active Prosper Wilson MD Attending Provider Active Chief Complaint and Reason for Visit Chief Complaint lvm follow up Allergies, Adverse Reactions, Alerts No known allergies Social History Smoking Status Status Start Date End Date Date of Observa tion Smoker (finding) September 29, 2 024 8:54am Additional Data Assigned Sex Male Problems Active [...] morning. Pregabalin Discontin ued 300 MG PO at bedtime 30 2023 1:00am 2023 3:33pm Partial fill upon patient request. This medication has a sedative effect, causing drowsiness, dizziness or light-headedn ess and may affect the ability to drive or operate machinery safely. Use of alcohol or cannabis while taking this medicine can result in increased sedative effect and greater impediment to driving or operating machinery safely. Pregabalin Discontin ued 300 MG PO twice a day 60 2023 3:32pm Febr2023 3:46pm Partial fill upon patient request. This medication has a sedative effect, causing drowsiness, dizziness or light-headedn ess and may affect the ability to drive or operate machinery safely. Use of alcohol or cannabis while taking this medicine can result in increased sedative effect and greater impediment to driving or operating machinery safely. Pregabalin (Lyrica) 300 mg capsule Discontin ued 300 MG PO twice a day 60 30 uar y 2023 1:00am Februa ry 2023 4:48pm Partial fill upon patient request. This medication [...] 12:00am December 31, 2022 8:24am Methadone Active 120 MG PO daily December 31, 2022 8:23am Loperamide Discontin ued 2 MG PO every 2-4 hours 20 [facility] 2019 12:00am August 14, 2022 2:08pm after each loose stool until symptoms controlled; do not exceed 8 mg total dose in 24 hrs Ibuprofen Active 800 MG PO every 6 hr (04,10,16,2 2) 60 [facility] 2019 12:00am Ondansetron Discontin ued 4 MG PO every 6 hr (04,10,16,2 2) 20 [facility] 2019 12:00August 14, 2022 2:08pm Metoclopramid e Hcl (Reglan) 10 mg tablet Discontin ued 10 MG PO every 6 hr (04,10,16,2 2) 20 March 13, 2020 12:00am [facility] er 2019 1:02am Clonidine Hcl Discontin ued 0.1 MG PO twice a day 6 March 13, 2020 12:00am [facility] r 2019 12:02a m Clonidine Hcl Discontin ued 0.1 MG PO three times a day 9 be r 2019 1:00am March 31st, 2023 2:08pm Folic Acid Discontin ued 1 MG [...] 2020 10:37am July 20, 2022 1:30pm Pregabalin Discontin ued 300 MG PO twice a day 120 [facility] 2022 4:04pm [facility] 2022 9:47am Pregabalin Discontin ued 150 MG PO twice a day 60 [facility] er 2022 4:04pm [facility] 2022 9:47am Take 1 pill (150 mg) in afternoon and evening. Take this in addition to a single 300 mg dose in the morning. Pregabalin Discontin ued 300 MG PO twice a day 120 [facility] 2022 9:47am [facility] er 2022 11:27a m Pregabalin Discontin ued 150 MG PO twice a day 60 [facility] 2022 9:47am 2023 12:37p m Take 1 pill (150 mg) in afternoon and evening. Take this in addition to a single 300 mg dose in the morning. Pregabalin Discontin ued 300 MG PO daily 30 r 2022 11:26am [facility] er 2022 11:28a m Pregabalin Discontin ued 300 MG PO daily 30 r 2022 11:27am Februa ry 2023 8:55am Take 2 (300mg) capsule in the morning. Pregabalin Discontin ued 300 MG PO daily 2023 8:55am 2023 3:32pm Take 2 (300mg) capsule in the morning. Pregabalin Discontin ued 300 MG PO twice a day 60 y 2023 1:00am August 11, 2023 10:19a m Partial fill upon patient request. This medication has a sedative effect, causing drowsiness, dizziness or light-headedn ess and may affect the ability to drive or operate machinery safely. Use of alcohol or cannabis while taking this medicine can result in increased sedative effect and greater impediment to driving or operating machinery safely. Pregabalin Discontin ued 300 MG PO twice a day 60 August 11, 2023 10:19am September 15, 2023 1:07pm Partial fill upon patient request. This medication has a sedative effect, causing drowsiness, dizziness or light-headedn ess and may affect the ability to drive or operate machinery safely. Use of alcohol or cannabis while taking this medicine can result in increased sedative effect and greater impediment to driving or operating machinery safely. Pregabalin Active 300 MG PO twice a day 60 M 2023 1:07pm Partial fill upon patient request. This medication has a sedative effect, causing drowsiness, dizziness or light-headedn ess and may affect the ability to drive or operate machinery safely. Use of alcohol or cannabis while taking this medicine can result in increased sedative effect and greater impediment to driving or operating machinery safely. Immunizations Immunization Event Date Not Given Reason Dose Number Freight Clerk Lot Number Vaccine Information Statement (VIS) Detail Influenza, MDCK, Quad, w/ Preservative February 26, 2022 COVID-19 VACC Pfizer December 06, 2020 COVID-19 VACC Pfizer December 27, 2020 COVID-19 VACC Pfizer Tri-sucrose August 15, 2021 Influenza, quadrivalent, with preservative February 14, 2017 Vital Signs Vital Reading Result Reference Range Collection Date/Time Heart Rate 89 /min 50-90 September 30, 2023 8:55am Respiratory rate 15 /min 14-20 September 29, 2 024 8:55am Oxygen saturation by Pulse oximetry 98 % 90-10 0 September 30, 2023 8:55am BP Systolic 122 mm[Hg] 90-130 September 30, 2023 8:55am BP Diastolic 74 mm[Hg] 60-90 September 30, 2023 8:55am Insurance Providers Guarantor Kyle Salimasue Address [address] [place] [address] Contact Info. Home Phone: Payer Policy Id Coverage Id Subscriber's Name Subscriber Id Effective Date Expiration Date [place] [facility] [employer] Nhp [id number] Kyle Peich [id number] [facility] Careplus [id number] Kyle Peich [id number] [place] Non Managed Care [id number] Kyle Peich [id number] [facility] [id number] Kyle Peich [id number] [facility] Q [id number] Kylefranco Borregosue [facility] [id number] Kyle Peich [id number] [facility] Dir Subsidized [id number] Kyle Peich [id number] Self Pay Insurance Self N/A [facility] [id number] Kyle Peich [id number] [employer] MCO [id number] Kyle Peich [id number] Encounters Encounter Location(s) Arrival/Admit Date Discharge/Depart Date Provider(s) Non-patient / Non-visit [facility] September 30, 2023 8:21am Prosper Wilson Jr MD Plan of Treatment Future Tests Future scheduled test information is unavailable Pending Tests Pending diagnostic test information is unavailable Future Visits Future appointment information is unavailable Referrals to Other Providers Reason for Referral Referral Start Date Provider Provider Contact Information Provider Address September 30, 2023 [facility] Ko Cronin Work Phone: [address] [place] [address], [address] [facility] BFS Neurology [facility] [address] Future Procedures Procedure Name Ordered Date Scheduled Date Discharge per unit specific guidelines March 10, 2023 2:59pm March 10, 2023 2:59pm Discharge per unit specific guidelines June 30, 2023 3:15pm June 30, 2023 3:15pm Future Medications Future medication information is unavailable Patient Instructions BFS Pain, Injection/Denervat ion, Post Op Discharge Instructions BFS Pain, Injection/Denervat ion, Post Op Discharge Instructions Hospital Discharge Instructions Ambulatory Orders* Follow Up 1 Year Location: None Selected
--- OUTSIDE RECORDS SUMMARY | 2023-12-08 13:25 | XMS_ITS | Continuity of Care Document ---
Author Organization [facility] Address [address] [place] [phone] Phone Care Team Providers Care Chip Washer Name Role Phone PCP, NONE Referring Provider Unavailable MD Hannah Monzon Attending Provider DO Gabi Ordonez Primary Care Provider DO Mohsen Ordoneze Danny Referring Provider DIANDRA Nicholas Attending Provider Care Teams Patient Care Team Team Status: Active Member Role Status Dates Suhail Coyne MD Pain Clinic, MD Active Rachelle Nicholas NP Pain Clinic, COMPOSITE ENGINEER Active Gabi Ordonez DO Primary Care Provider Active Visit Care Team Team Status: Inactive Member Role Status Dates NONE PCP Referring Provider Active Hannah Monzon MD Attending Provider Active Gabi Ordonez DO Primary Care Provider Active Patient Care Team Team Status: Inactive Member Role Status Dates Gabi Ordonez DO Primary Care Provider, Referr ing Provider Active Rachelle Nicholas NP Attending Provider Active Chief Complaint and Reason for Visit 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 May increase to 2 pills (10 mg) 3 times daily as needed. Pregabalin Active 150 MG PO twice a day 60 M 2022 12:00am Take 1 pill (150 mg) in afternoon [...] 2 MG PO every 2-4 hours 2019 12:00am August 14, 2022 2:08pm after each loose stool until symptoms controlled; do not exceed 8 mg total dose in 24 hrs Ibuprofen Active 800 MG PO every 6 hr (04,10,16,2 2) [facility] 12[facility]00am Ondansetron Discontin ued 4 MG PO every 6 hr (04,10,16,2 2) [facility] 12:00am August 14, 2022 2:08pm [...] Event Date Not Given Reason Dose Number Senior Payroll Administrator Lot Number Vaccine Information Statement (VIS) Detail Influenza, MDCK, Quad, w/ Preservative February 26, 2022 COVID-19 VACC Pfizer December 06, 2020 COVID-19 VACC Pfizer December 27, 2020 COVID-19 VACC Pfizer Tri-sucrose August 15, 2021 Influenza, quadrivalent, with preservative February 14, 2017 Insurance Providers Guarantor Kyle Young Address [address] [facility] [address] Contact Info. Home Phone: Payer Policy Id Coverage Id Subscriber's Name Subscriber Id Effective Date Expiration Date [employer] Nhp [id number] Kyle Peich [id number] [facility] Care[facility] [id number] Kyle Peich [id number] [place] Medicaid Non Managed Care [id number] Kyle Peich [id number] [place] [facility] [id number] Kyle Peich [id number] [facility] Q [id number] Kylefranco Borregosue Self Pay Insurance Self N/A [facility] [id number] Kyle Peich [id number] [employer] MCO [id number] Kyle Peich [id number] Encounters Encounter Location(s) Arrival/Admit Date Discharge/Depart Date Provider(s) Departed Physician/Prov ider Office Visit [facility] December 30, 2022 1:12pm December 30, 2022 1:56pm Hannah Monzon MD Departed Physician/Prov ider Office Visit [facility] December 31, 2022 8:06am December 31, 2022 8:51am Rachelle Nicholas NP Plan of Treatment Future Tests Future scheduled test information is unavailable Pending Tests Pending diagnostic test information is unavailable Future Visits Future appointment information is unavailable Referrals to Other Providers Reason for Referral Referral Start Date Provider Provider Contact Information Provider Address December 31, 2022 Suhail Coyne MD Work Phone: [address] [place] [address] BFS PAIN MANAGEMENT [facility] [address] Future Procedures Future procedure information is unavailable Future Medications Future medication information is unavailable Patient Instructions Patient instructions are unavailable Hospital Discharge Instructions Ambulatory Orders* [facility] ESTEVAN Lumbar Time Frame: 12/31/22, Location: None Selected
--- OUTSIDE RECORDS SUMMARY | 2023-12-08 13:25 | XMS_ITS | Continuity of Care Document ---
Author Organization [facility] Address [address] [place] [phone] Phone Care Team Providers Care Cafeteria Or Lunchroom Checker Name Role Phone PCP, NONE Primary Care Provider Unavailabl e PCP, NONE Referring Provider Unavailable MD Leander Hutchins Attending Provider [phone] Care Teams Patient Care Team Team Status: Active Member Role Status Dates NONE PCP Primary Care Provider Active Visit Care Team Team Status: Active Member Role Status Dates NONE PCP Primary Care Provider, Referring Provider Active Leander Hutchins MD Attending Provider Active Chief Complaint and Reason for Visit 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 This medication has a sedative effect, causing drowsiness, dizziness or light-headedn ess and may affect the ability to drive or operate machinery safely. Use of alcohol or cannabis while taking this medicine can result in increased sedative effect and greater impediment to driving or operating machinery safely. Methadone Active 40 MG PO daily November 29, 2019 12:00am Loperamide Discontin ued 2 MG PO every 2-[address] [facility] 2019 12:00August 14, 2022 2:08pm after each loose stool until symptoms controlled; do not exceed 8 mg total dose in 24 hrs Ibuprofen Active 800 MG PO every 6 hr (04,10,16,2 2) [address] [facility] 2019 12:00am Ondansetron Discontin ued 4 MG PO every 6 hr (04,10,16,2 2) [address] [facility] 2019 12:00am August 14, 2022 2:08pm Metoclopramid e Hcl (Reglan) 10 mg tablet Discontin ued 10 MG PO every 6 hr (04,10,16,2 2) 20 March 13, 2020 12:00am [facility] 2019 1:02am Clonidine Hcl Discontin [...] PO every 12 hours January 08, 2020 12:00January 14, 2020 10:36a m Thiamine Mononitrate (Vit B1) (Vitamin B-1 (Mononitrate) ) 100 mg Tablet Discontin ued 100 MG PO daily January 08, 2020 12:00am August 14, 2022 2:08pm Amoxicillin-P ot Clavulanate Discontin ued 1 TAB PO every 12 hours 20 January 14, 2020 10:36am January 14, 2020 10:37a m Amoxicillin-P ot Clavulanate Discontin ued 1 TAB PO every 12 hours 20 January 14, 2020 10:37am July 20, 2022 1:30pm Immunizations Immunization Event Date Not Given Reason Dose Number [employer] Lot Number Vaccine Information Statement (VIS) Detail Influenza, MDCK, Quad, w/ Preservative February 26, 2022 COVID-19 VACC Pfizer December 06, 2020 COVID-19 VACC Pfizer December 27, 2020 COVID-19 VACC Pfizer Tri-sucrose August 15, 2021 Influenza, quadrivalent, with preservative February 14, 2017 Vital Signs Vital Reading Result Reference Range Collection Date/Time Height 74 [in_i] August 14 2:10pm Weight 99.79 kg August 14 2:10pm Body Temperature 97.7 [degF] 97.5-99.6 August 14, 2022 2:10pm Heart Rate 77 /min 50-90 August 14 2:10pm Respiratory rate 16 /min 14-20 August 14, 2022 2:10pm Oxygen saturation by Pulse oximetry 99 % 90-100 August 14, 2022 2:1 0pm BP Systolic 130 mm[Hg] 90-130 August 14 2:10pm BP Diastolic 80 mm[Hg] 60-90 August 14 2:10pm BMI (Body Mass Index) 28.2 kg/m2 August 14, 2022 2:10pm Insurance Providers Guarantor Kyle Young Address [address] [place] [address] Contact Info. Home Phone: Payer Policy Id Coverage Id Subscriber's Name Subscriber Id Effective Date Expiration Date [employer] Nhp [id number] Kyle Young [id number] [facility] Careplus [id number] Kyle Young [id number] [place] Non Managed Care [id number] Kyle Young [id number] [facility] [id number] Kyle Young [id number] [facility] [id number] Kyle Young Self Pay Insurance Self N/A Encounters Encounter Location(s) Arrival/Admit Date Discharge/Depart Date Provider(s) Non-patient / Non-visit [facility] August 14, 2022 1:47pm LEANDER HUTCHINS MD Recent Diagnosis Onset Date Lumbosacral radiculopathy at S1 Paresthesia of right leg Ulnar neuropathy of both upper extremiti es Assessments Diagnosis Onset Date Resolution Status Lumbosacral radiculopathy at S1 noneactive Paresthesia of right leg non eactive Ulnar neuropathy of both upper extremities noneactive Plan of Treatment Future Tests Future scheduled test information is unavailable Pending Tests Test Name Ordered Date Scheduled Date MR lumbar spine wo con August 18, 2022 12:30pm Future Visits Future appointment information is unavailable Referrals to Other Providers Reason for Referral Referral Start Date Provider Provider Contact Information Provider Address M54.17 - Radiculopathy, lumbosacral region,G56.23 - Lesion of ulnar nerve, bilateral upper limbs August 18, 2022 Any provider August 18, 2022 LEANDER HUTCHINS MD Work Phone: [address] [place] [address] [place]Y [place] [address] Future Procedures Future procedure information is unavailable Future Medications Future medication information is unavailable Patient Instructions Patient instructions are unavailable Hospital Discharge Instructions Ambulatory Orders* [facility] Referral Time Frame: 08/18/22, Location: None Selected
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
--- OUTSIDE RECORDS SUMMARY | 2023-12-08 13:25 | XMS_ITS | Continuity of Care Document ---
Author Organization [facility] Address [address] [place] [phone] Phone Care Team Providers Care Commanding Officer Traffic Division Name Role Phone DO Gabi Ordonez Primary Care Provider DO Gabi Ordonez Referring Provider DIANDRA Cronin Attending Provider [phone] Care Teams Patient Care Team Team Status: Active Member Role Status Dates Suhail Coyne MD Pain Clinic, MD Active Rachelle Nicholas NP Pain Clinic, FLUX MIXER Active Gabi Ordonez DO Primary Care Provider Active Visit Care Team Team Status: Active Member Role Status Al Ordonez DO Primary Care Provider, Referr ing Provider Active Ko Cronin NP Attending Provider Active Visit Care Team Team Status: Inactive Member Role Status Al Ordonez DO Primary Care Provider Active Ko Cronin NP Attending Provider Active Chief Complaint and [...] ued 2 MG PO every 2-4 hours 3rd, 2020 12:00am August 14, 2022 2:08pm after each loose stool until symptoms controlled; do not exceed 8 mg total dose in 24 hrs Ibuprofen Active 800 MG PO every 6 hr (04,10,16,2 2) 60 [facility] 2019 12:00am Ondansetron Discontin ued 4 MG PO every 6 hr (04,10,16,2 2) 20 [facility] 2019 12:00August 14, 2022 2:08pm [...] MG PO three times a day 9 [facility] 2019 1:00am August 14, 2022 2:08pm [...] Event Date Not Given Reason Dose Number Commercial Lending Assistant Lot Number Vaccine Information Statement (VIS) Detail [...] February 25, 2023 11:48am 8.1 K/mm3 4.0-11.0 [place] [id number] [address] [place] [address] Red Blood Count February 25, 2023 11:48am 5.35 M/uL 4.20-5.80 [place] [id number] [address] [place] [address] Hemoglobin February 25, 2023 11:48am 16.7 gm/dL 12.5-17.0 [place] [id number] [address] [place] [address] Hematocrit February 25, 2023 11:48am 51.5 % 37.0-50.0 [facility] [id number] [address] [place] [address] 21053 Mean Corpuscular Volume February 25, 2023 11:48am 96.3 FL 80.0-100.0 [facility] [id number] [address] [place] [address]60[address] Mean Corpuscular Hemoglobin Concent February 25, 2023 11:48am 32.4 % 32-37 [facility] [id number] [address] [place] [address] Red Cell Distribution Width February 25, 2023 11:48am 14.9 % 11.5-16.0 [facility] [id number] [address] [place] [address] 27057 Platelet Count February 25, 2023 11:48am 331 K/uL 140-400 [place] [id number] [address] [place] [address] 22477 Mean Platelet Volume February 25, 2023 11:48am 10.9 FL 8.6-12.5 [place] [id number] [address] [place] [address] 72784 Nucleated Red Blood Cells % (auto) February 25, 2023 11:48am 0.0 % 0.0-0.7 [place] [id number] [address] [place] [address] Neutrophils (%) (Auto) February 25, 2023 11:48am 45.3 % [place] [id number] [address] [place] [address] Lymphocytes (%) (Auto) February 25, 2023 11:48am 38.7 % [address] [place] [address] Monocytes (%) (Auto) February 25, 2023 11:48am 11.4 % [place] [id number] [address] [place] [address] Eosinophils (%) (Auto) February 25, 2023 11:48am 3.1 % [address] [place] [address] 445[address] Basophils (%) (Auto) February 25, 2023 11:48am 1.4 % [address] [place] [address] Immature Granulocyte % (Auto) February 25, 2023 11:48am 0.1 % [place] [id number] [address] [place] [address] 37645 Neutrophils # (Auto) February 25, 2023 11:48am 3.65 K/uL 1.50-7.50 [address] [place] [address] Lymphocytes # (Auto) February 25, 2023 11:48am 3.12 K/uL 1.00-4.50 [place] [id number] [address] [place] [address] 59926 Monocytes # (Auto) February 25, 2023 11:48am 0.92 K/uL 0.00-0.80 [place] [id number] [address] [place] [address] 801[address] Eosinophils # (Auto) February 25, 2023 11:48am 0.25 K/uL 0.00-0.40 [address] [place] [address] 08384 Basophils # (Auto) February 25, 2023 11:48am 0.11 K/uL 0.00-0.20 [address] [place] [address] Immature Granulocyte # (Auto) February 25, 2023 11:48am 0.01 K/uL 0.00-0.10 [facility] [id number] [address] [place] [address] 10089 Hemoglobin A1c February 25, 2023 11:48am 5.3 % 4.4-6.3 [facility] [id number] [address] [place] [address]1598 Sodium Level February 25, 2023 11:48am 139 mEq/L 133-145 [facility] [id number] [address] [place] [address] 43545 Potassium Level February 25, 2023 11:48am 4.7 mEq/L 3.5-5.1 Please note new reference range. [facility] [id number] [address] [place] [address] Chloride Level February 25, 2023 11:48am 102 mEq/L 98-107 [facility] [id number] [address] [place] [address] 31738 Carbon Dioxide Level February 25, 2023 11:48am 31 mEq/L 22-31 [facility] [id number] [address] [place] [address] Anion Gap February 25, 2023 11:48am 6 mEq/L 5-15 [facility] [id number] [address] [place] [address]2626 Blood Urea Nitrogen February 25, 2023 11:48am 12 mg/dL 9-21 Please note new reference range. [facility] [id number] [address] [place] [address] Creatinine February 25, 2023 11:48am 1.13 mg/dL 0.00-1.30 [facility] [id number] [address] [place], [place] [address] Pharmacy Creatinine Clearance (Chem February 25, 2023 11:48am Not Reportable [facility] [id number] [address] [place], [place] [address] Estimat Glomerular Filtration Rate February 25, 2023 11:48am > 60 Units: mL/min/1.73 [id number] GFR (eGFR) should not be used for patients with acute kidney injury or ESRD (creatinine should be at steady state and stable to use). eGFR is calculated using the National Kidney Foundation 202 CKD-EPI creatinine equation, which is now the [...] G4 (severely decreased), eGFR<15 G5 (kidney failure). [facility] [id number] [address] [place] [address] 22752 Glucose Level February 25, 2023 11:48am 85 mg/dL 70-100 Fasting Reference Interval: 70-100mg/dLN on-fasting Reference Interval: 70-140mg/dL [place] [id number] [address] [place] [address] Calcium Level February 25, 2023 11:48am 9.6 mg/dL 8.4-10.4 Please note new reference range. [facility] [id number] [address] [place], [place] [address] Total Bilirubin February 25, 2023 11:48am 0.5 mg/dL 0.2-1.2 [facility] [id number] [address] [place], [place] [address] Direct Bilirubin February 25, 2023 11:48am 0.1 mg/dL 0.0-0.5 [place] [id number] [address] [place] [address] Aspartate Amino Transf (AST/SGOT) February 25, 2023 11:48am 24 IU/L 5-34 [facility] [id number] [address] [place], [place] [address] Alanine Aminotransferase (ALT/SGPT) February 25, 2023 11:48am 31 IU/L 0-55 [facility] [id number] [address] [place] [address] 12727 Total Protein February 25, 2023 11:48am 7.7 g/dL 6.0-8.3 [place] [id number] [address] [place] [address] 26479 Albumin February 25, 2023 11:48am 3.9 g/dL 2.8-5.4 [facility] [id number] [address] [place] [address]1702 Alkaline Phosphatase February 25, 2023 11:48am 58 IU/L 40-150 Please note new reference range. [facility] [id number] [address] [place] [address]6817 Vitamin B12 Level February 25, 2023 11:48am 646 pg/mL 213-816 [facility] [id number] [address] [place] [address] 20863 Folic Acid (LAB) February 25, 2023 11:48am 12.6 ng/mL 7.0-31.4 Please note new reference range. [facility] [id number] [address] [place] [address]442 Thyroid Stimulating Hormone (TSH) February 25, 2023 11:48am 1.14 uIU/mL 0.35-4.94 Please note new reference range. [facility] [id number] [address] [place] [address] 92469 Vital Signs Vital Reading Result Reference Range [...] 11:00am Insurance Providers Guarantor Kyle Young Address [address] [place] [address] Contact Info. Home Phone: Payer Policy Id Coverage Id Subscriber's Name Subscriber Id Effective Date Expiration Date [employer] Sdp [id number] Kyle Young [id number] [facility] Careplus [id number] Kyle Peisue [id number] [place] Non Managed Care [id number] Kyle Young [id number] [facility] [id number] Kyle Young [id number] [facility] [id number] Kyle Young [facility] [id number] Kyle Young [id number] [facility] Dir Subsidized [id number] Kyle Young [id number] Self Pay Insurance Self N/A [facility] [id number] Kyle Young [id number] [employer] [facility] [id number] Kyle Young [id number] Encounters Encounter Location(s) Arrival/Admit Date Discharge/Depart Date Provider(s) Non-patient / Non-visit [facility] February 25, 2023 10:51am ANP-BC Ko Cronin Departed Clinical [facility]-Lab Draw - [facility] February 25, 2023 11:31am February 25, 2023 11:32am ANP-BC Ko Mehrdad Recent Diagnosis Onset Date Lumbosacral radiculopathy at [...] 31, 2022 Suhail Coyne MD Work Phone: [address] [place] [address] [facility] [place] [address] February 25, 2023 Prosper Wilson Jr MD Work Phone: [address] [place] [address] NEUROLOGY [place] [address] M54.17 - Radiculopathy, lumbosacral region February 25, 2023 Physical Therapy [facility] Future Procedures Procedure Name Ordered Date Scheduled Date Vitamin B1(Thiamine), LC/MS/MS February 25 11:17am February 25, 2023 11:48am Vitamin B6 (pryidoxine) February 25, 2023 11:17 am February 25, 2023 11:48am Future Medications Future medication information is unavailable Patient Instructions Patient instructions are unavailable
[2023-12-08 13:28] VITALS: BP 0/0; PULSE 0; RESP 0; TEMP -17.7; TEMP 0; O2SAT 0
--- NOTE | 2023-12-08 13:31 | PC.NURSE ---
pt able to walk a straight line- pt understands the consequences-
[2023-12-08 13:32] VITALS: BP 150/89; PULSE 99; RESP 20; O2SAT 95
== END 2023-12-08 13:32 | disposition home or self-care (01) ==
LOC: HO.ED 13:23
PROVIDERS: Emergency Provider Emergency Medicine Emergency Medical Services
DX: F10.220 Alcohol dependence with intoxication, uncomplicated (principal); F14.988 Cocaine use, unspecified with other cocaine-induced disorder; Y90.9 Presence of alcohol in blood, level not specified; F11.20 Opioid dependence, uncomplicated
CPT/HCPCS: 99283

== ENCOUNTER 2023-12-08 14:28 | Emergency (ER) | payer OTHER, SELFPAY ==
--- NOTE | ~2023-12-08 | CT_ITS ---
EXAMINATION: CT HEAD WITHOUT CONTRAST CLINICAL INFORMATION: Difficulty walking. Intoxication. Evaluate for subdural hematoma. COMPARISON: CT head 05/27/2008. TECHNIQUE: Contiguous axial imaging was performed from the skull base to vertex without intravenous administration of contrast. This CT examination was performed using dose optimization techniques as appropriate, variously including the following: *Automated exposure control *Adjustment of mA and/or kV according to patient size (this includes techniques or standardized protocols for targeted exams where dose is matched to indication/reason for exam; i.e. extremities or head) *Use of iterative reconstruction technique DLP: 760 mGy-cm FINDINGS: There is no acute intracranial hemorrhage or abnormal extra-axial collection. No intracranial mass effect or midline shift. Lateral and third ventricles are normal. No hydrocephalus. Liu-white matter differentiation is preserved and there is no evidence of acute territorial infarct. The calvarium and skull base are intact. Mastoid air cells and middle ear cavities are well aerated. No active paranasal sinus disease. CT/CT head/brain wo IV con IMPRESSION: Unremarkable CT scan of the head. No evidence of acute territorial infarct or hemorrhage.
[2023-12-08 14:37] VITALS: BP 150/82; BP 157/81; PULSE 112; PULSE 98; RESP 22; TEMP -17.7; TEMP 0; O2SAT 96; O2SAT 98; BMI 32.1
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
--- NOTE | 2023-12-08 14:45 | PC.NURSE ---
Pt changed over by security, belongings in closet near room 7. Pt denies SI or HI, does endorse alcohol use. Breathing even and unlabored.
[2023-12-08] MEDS: Lactated Ringers 1,000 ML 999 ML IV ×3 (15:04→16:24)
[2023-12-08 15:05] LABS: MANUAL DIFF FLAG NO
[2023-12-08 15:08] LABS: Basophils Absolute Auto 0.1 X10*3/uL (0.0-0.2); Basophils Percent Auto 0.8 % (0-2); Eosinophils Absolute Auto 0.1 X10*3/uL (0.0-0.4); Eosinophils Percent Auto 0.8 % (0-4); Hematocrit 44.8 % (42.0-52.0); Hemoglobin 15.9 g/dl (14.0-18.0); Imm Gran Abs Auto 0.01 X10*3/uL (0.00-0.03); Imm Gran Pct Auto 0.1 % (0.0-0.4); Lymphocytes Absolute Auto 2.1 X10*3/uL (1.2-4.9); Lymphocytes Percent Auto 24.6 % (20-40); Mean Corpuscular HGB Conc 35.5 g/dl (31.0-36.0); Mean Corpuscular Hemoglobin 32.2 pg (27.0-33.0); Mean Corpuscular Volume 90.7 fL (80.0-98.0); Mean Platelet Volume 11.2 fL (9.4-12.4); Monocytes Absolute Auto 1.3 X10*3/uL (0.1-1.2); Monocytes Percent Auto 15.3 % (2-11); Neutrophils Percent Auto 58.4 % (45-73); Platelet Count 291 X10*3/uL (160-400); Red Blood Count 4.94 X10*6/uL (4.60-5.80); Red Cell Distribution Width 13.1 % (11.0-16.0); White Blood Count 8.6 X10*3/uL (4.8-10.8)
--- NOTE | 2023-12-08 15:09 | PC.NURSE ---
IV established, medicated per the MAR. patient appears to be sleeping at this time, holding po zyprexa at this time. fluids infusing, patient observer remains at bedside.
[2023-12-08 15:25] LABS: Partial Thromboplastin Time 28.6 SEC (26.0-36.8)
[2023-12-08 15:37] LABS: Alanine Aminotransferase 57 U/L (0-40); Albumin Level 3.9 g/dL (3.5-5.0); Alkaline Phosphatase 83 U/L (39-117); Anion Gap 12 (12-20); Aspartate Amino Transferase 74 U/L (5-37); Bilirubin Total 0.9 mg/dL (0.0-1.0); Blood Urea Nitrogen 15 mg/dL (9-16); Calcium 9.3 mg/dL (8.4-10.2); Carbon Dioxide 29 mmol/L (22-29); Chloride 105 mmol/L (96-108); Creatinine Clr Calc Pharmacy 136.7; Estimated Glomerular Filt Rate > 60; Ethanol < 10 mg/dL; Glucose Random 108 mg/dL (60-115); Lipase 13 U/L (8-78); Magnesium 2.2 mg/dL (1.6-2.6); Potassium 3.3 mmol/L (3.3-5.1); Sodium 143 mmol/L (135-145); Total Protein 7.5 g/dL (6.5-8.0)
--- NOTE | 2023-12-08 15:58 | PC.NURSE ---
Pt continues to sleep at this time, breathing even and unlabored.
[2023-12-08 16:00] VITALS: BP 124/78; PULSE 78; RESP 20; TEMP 36.3; O2SAT 97
[2023-12-08 19:09] LABS: Alanine Aminotransferase 46 U/L (0-40); Albumin Level 3.3 g/dL (3.5-5.0); Alkaline Phosphatase 70 U/L (39-117); Anion Gap 11 (12-20); Aspartate Amino Transferase 50 U/L (5-37); Bilirubin Total 0.8 mg/dL (0.0-1.0); Blood Urea Nitrogen 12 mg/dL (9-16); Calcium 8.6 mg/dL (8.4-10.2); Carbon Dioxide 29 mmol/L (22-29); Chloride 105 mmol/L (96-108); Creatinine Clr Calc Pharmacy 168.3; Estimated Glomerular Filt Rate > 60; Glucose Random 97 mg/dL (60-115); Potassium 3.3 mmol/L (3.3-5.1); Sodium 142 mmol/L (135-145); Total Protein 6.3 g/dL (6.5-8.0)
[2023-12-08 19:18] VITALS: BP 127/87; PULSE 70; RESP 12; O2SAT 98
[2023-12-08 19:18] LABS: Glucose, Whole Blood 94 mg/dL (60-115)
--- NOTE | 2023-12-08 19:29 | PC.NURSE ---
Pt noted to continue sleeping, minimal response to painful stimuli. Breathing even and unlabored, RR 12-14. Pupils pinpoint. VSS. Provider alerted and pt moved into room. Order to straight cath due to large amount of IV fluid and no recent urination. NSR on bedside personnel monitor. 1:1 sitter at bedside.
[2023-12-08 20:00] VITALS: BP 133/87; PULSE 75; RESP 13; O2SAT 95
[2023-12-08 20:02] LABS: Amphetamine Screen Urine Not Detected (Not Detect); Appearance Urine Clear; Barbiturates, Urine Not Detected (Not Detect); Benzodiazepines Screen Urine Not Detected (Not Detect); Buprenorphine Scr Not Detected (Not Detect); Cannabinoid Screen Urine Not Detected (Not Detect); Cocaine Screen Urine POSITIVE (Not Detect); Color Urine Yellow; Fentanyl, urine POSITIVE (Not Detect); Glucose Urine UA Negative (Negative); Leukocyte Esterase Urine Negative (Negative); Methadone Screen, Urine Not Detected (Not Detect); Nitrite Urine Negative (Negative); Opiate Screen Urine POSITIVE (Not Detect); Oxycodone Screen Urine Not Detected (Not Detect); PH 6.5 (5.0-9.0); Phencyclidine Screen Urine Not Detected (Not Detect); Urine Blood Negative (Negative); Urine Ketones Trace mg/dL (Negative); Urine Protein Negative (Neg-Trace)
[2023-12-08 21:04] VITALS: BP 134/89; PULSE 70; RESP 12; O2SAT 97
[2023-12-08 22:00] VITALS: BP 133/87; PULSE 68; RESP 12; O2SAT 100
--- NOTE | 2023-12-08 22:27 | PC.NURSE ---
Pt administered 4mg of nasal narcan with provider at bedside due to decreased RR around 6-8. Periods of desat noted as well. Pt placed on 3L O2 via NC. Pt awake and answering questions after narcan, breathing even and unlabored. Pt did have one episode of vomiting. Able to maintain airway
[2023-12-08] MEDS: ondansetron HCL 4 MG/2 ML VIAL IVPUSH (22:40)
--- NOTE | 2023-12-08 22:51 | PC.NURSE ---
Pt had multiple episodes of diarrhea and vomiting. Medicated per JUL. Remains alert and oriented.
--- NOTE | 2023-12-08 23:55 | PC.NURSE ---
PT IS AXOX4 SPEAKING FULL CLEAR SENTENCES DENIES SI/HI. SATS 96% ON RA. RESP EVEN AND UNLABORED. 1:1 SITTER AT BEDSIDE.
[2023-12-09 00:44] VITALS: PULSE 95; RESP 17; O2SAT 96
--- NOTE | 2023-12-09 00:56 | PC.NURSE ---
Per Dr. Myrick pt medically cleared for behavioral health pod. Report to Yuli RN in the POD.
[2023-12-09 01:53] VITALS: BP 135/75; PULSE 71; RESP 17; TEMP 37; O2SAT 93
[2023-12-09 08:32] VITALS: BP 153/92; PULSE 93; RESP 16; TEMP 36.4; O2SAT 98
[2023-12-09] MEDS: Nicotine Polacrilex Lozenge 2 MG LOZENGE BUCCAL (08:40)
[2023-12-09 10:13] VITALS: BP 153/92; PULSE 93; RESP 16; TEMP 36.4; O2SAT 98
== END 2023-12-09 10:38 | disposition home or self-care (01) ==
PROVIDERS: Emergency Medicine; Emergency Provider Emergency Medicine Emergency Medical Services
DX: R41.82 Altered mental status, unspecified (principal); F14.988 Cocaine use, unspecified with other cocaine-induced disorder; F10.988 Alcohol use, unspecified with other alcohol-induced disorder; Y90.0 Blood alcohol level of less than 20 mg/100 ml; M62.82 Rhabdomyolysis; F11.20 Opioid dependence, uncomplicated
CPT/HCPCS: 36415; 70450; 80053; 80307; 81003; 82550; 82947; 83690; 83735; 85025; 85730; 96361; 96374; 99285; J2405; J7120; S9485

== ENCOUNTER 2024-10-01 13:32 | Emergency (ER) | payer MEDICAID, SELFPAY ==
[2024-10-01 13:38] VITALS: BP 135/89; PULSE 111; O2SAT 97
--- NOTE | 2024-10-01 13:44 | ED_ITS ---
HPI - Overdose General Chief Complaint: Overdose Stated Complaint: overdoe narcan give Time Seen by Provider: 10/01/24 13:38 Source: patient and EMS Mode of arrival: EMS History of Present Illness HPI Narrative: THIS IS A 33 YEARS OLD THE PATIENT WITH A HISTORY OF OPIATE ABUSE PRESENTED TO EMERGENCY DEPARTMENT AFTER OPIOID OVERDOSE. HE WAS GIVEN NARCAN IN THE FIELD, HE DID NOT REQUIRE A BVM VENTILATION . THE DENIES SI AND HI HE IS NOT INTERESTED IN DETOX MD complaint: accidental overdose Onset (ago): hour(s) (3) Intent: wanted to escape Context: Accidental Overdose: wanted to get high Treatments Prior to Arrival: narcan Related Data Home Medications ?Medication ?Instructions ?Recorded ?Confirmed No Known Home Meds 02/19/20 02/19/20 Allergies Allergy/AdvReac Type Severity Reaction Status Date / Time No Known Allergies Allergy Mild NOT Verified 10/01/24 13:58 APPLICABLE Review of Systems Constitutional: Constitutional: Reports no additional constitutional complaints ENT: Reports system reviewed and no additional complaints, except as documented Neurologic: Reports system reviewed and no additional complaints, except as documented FORMERLY [facility] Past Medical History Attestation statement: The following information was validated with the patient. [facility]LY [facility] Narrative: OPIOID ABUSE Medical History Opiate abuse, continuous Alcohol withdrawal seizure Endocarditis Surgical History History of splenectomy Social History Social History Unable to assess alcohol history related to: Refusing to respond Alcohol intake: current Alcohol intake frequency: 3 or more drinks per day Alcohol type: beer and hard liquor Smoked in Last 30 Days: No Use of substances other than those prescribed or required for medical reasons: Yes Substance Use Type: Heroin and Opiates Advance Directives: No Advance Directives Information Provided: Yes Do you have a plan to hurt others: No Plan Physical Exam Vital Signs: Vital Signs: Last Vital Signs Temp 99.5 F 10/01/24 14:24 Pulse 114 H 10/01/24 14:24 Resp 18 10/01/24 14:24 BP 134/71 10/01/24 14:24 Pulse Ox 93 10/01/24 14:24 O2 Del Method Room Air 10/01/24 14:24 BMI result Body Mass Index 22.5 NO ACUTE DISTRESS COMFORTABLE IN THE STRETCHER Const: Nutritional Appearance: well nourished Orientation/consciousness: patient oriented x3 Limitations: no limitations HEENT: Head: Yes normal to inspection Ears: hearing grossly normal bilaterally General nose exam: Normal external nose present Face and sinus: Yes normal facial exam Neck: Neck: Yes normal visual inspection and Yes full ROM Resp: Effort & Inspection: normal respiratory effort Cardio: Jugular venous distension: no JVD Rate: regular rate Rhythm: regular rhythm GI: Inspection: Yes normal to inspection Palpation (GI): Soft to palpation and not firm Auscultation: normal bowel sounds : General: Yes no CVA tenderness Back/Spine/Pelvis: Back: no CVA tenderness Cervical Spine: normal cervical lordosis Skin: General skin exam: no rashes or lesions noted Neuro: General: patient oriented x3 Cranial nerves: Yes CN's II-XII intact bilaterally Gait exam (Neuro): Normal gait present Motor exam (neuro): 5/5 motor strength present throughout Medical Decision Making Medical Decision Making MDM Narrative: PATIENT WAS BROUGHT HERE AFTER OPIATE OVERDOSE HE DOES NOT WANT TO BE HERE 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
[2024-10-01 13:56] VITALS: BP 134/71; PULSE 114; RESP 18; TEMP 37.5; O2SAT 93; BMI 22.5
--- OUTSIDE RECORDS SUMMARY | 2024-10-01 14:01 | XMS_ITS | Encounter Summary ---
Author Organization [facility] Address [address] [place] [address] Phone Care Team Providers Care Care Aid Name Role Phone Haris Mckee MD Primary Care Provider [phone] Encounter Details Date Type Department Care Team (Late st Contact Info) Description 12/31/2016 Conversion Encounter [facility] [place] [address] [place] [address] Social History Tobacco Use Types Packs/Day Years Used Date Smoking Tobacco: Never Assessed Sex and Gender Information Value Date Recorded Sex Assigned at Not on file Legal Sex Male 4:21 PM EDT Gender Identity Not on file Sexual Orientation Not on file documented as of this encounter Plan of Treatment Not on file documented as of this encounter Visit Diagnoses Not on filedocumented in this encounter Care Teams Care Aid Relationship Specialty Start Date End Date Haris Mckee MD [address] [place] [address] PCP - General 12/25/16 09/02/22 documented as of this encounter
[2024-10-01 14:24] VITALS: BP 134/71; PULSE 114; RESP 18; TEMP 37.5; O2SAT 93
== END 2024-10-01 14:26 | disposition home or self-care (01) ==
PROVIDERS: Emergency Provider Emergency Medicine
DX: T40.2X1A Poisoning by other opioids, accidental (unintentional), initial encounter (principal); R40.4 Transient alteration of awareness; F11.10 Opioid abuse, uncomplicated; Y92.410 Unspecified street and highway as the place of occurrence of the external cause
CPT/HCPCS: 99284

== ENCOUNTER 2024-12-11 05:21 | Inpatient (IN) | payer MEDICAID, SELFPAY ==
[2024-12-11] VITALS (11 sets, daily range): BP systolic 101–138; BP diastolic 68–88; PULSE 56–96; RESP 12–18; TEMP 35.8–36.7; O2SAT 95–99; BMI 27.5; BMI 25.5
--- NOTE | ~2024-12-11 | XR_ITS ---
EXAMINATION: XR HAND 3 OR MORE VIEWS LEFT HISTORY: overlying cellulitis COMPARISON: There are no prior studies available for comparison. FINDINGS: Three portable views of the left hand performed at 9:07 AM are submitted. Osseous mineralization is normal. There is no fracture or dislocation. The joint spaces are preserved. The soft tissues are unremarkable. XR/XR hand LT min 3V IMPRESSION: Unremarkable examination of the left hand. Electronically signed by: Larry Costa MD 12/11/2024 09:29 AM EDT
[2024-12-11 06:33] LABS: MANUAL DIFF FLAG NO
--- NOTE | 2024-12-11 06:44 | PC.NURSE ---
pt changed over by security, pt belongings placed in suze port shelf 2. pt calm and cooperative.
[2024-12-11 06:48] LABS: Alanine Aminotransferase 119 U/L (0-40); Albumin Level 4.2 g/dL (3.5-5.0); Alkaline Phosphatase 98 U/L (39-117); Anion Gap 11 (12-20); Aspartate Amino Transferase 68 U/L (5-37); Blood Urea Nitrogen 18 mg/dL (9-16); Calcium 8.7 mg/dL (8.4-10.2); Carbon Dioxide 29 mmol/L (22-29); Chloride 103 mmol/L (96-108); Creatinine Clr Calc Pharmacy 145.3; Estimated Glomerular Filt Rate > 60; Potassium 3.6 mmol/L (3.3-5.1); Sodium 139 mmol/L (135-145); Total Protein 8.2 g/dL (6.5-8.0)
[2024-12-11 06:59] LABS: Hematocrit 43.5 % (42.0-52.0); Hemoglobin 14.5 g/dl (14.0-18.0); Imm Gran Abs Auto 0.02 X10*3/uL (0.00-0.03); Imm Gran Pct Auto 0.2 % (0.0-0.4); Lymphocytes Absolute Auto 2.3 X10*3/uL (1.2-4.9); Mean Corpuscular HGB Conc 33.3 g/dl (31.0-36.0); Mean Corpuscular Hemoglobin 31.3 pg (27.0-33.0); Mean Corpuscular Volume 94.0 fL (80.0-98.0); NRBC Abs Auto 0.000 X10*3/uL (0.0-0.012); NRBC Pct Auto 0.0 /100WBC (0.0-0.2); Platelet Count 317 X10*3/uL (160-400); Red Blood Count 4.63 X10*6/uL (4.60-5.80); White Blood Count 9.3 X10*3/uL (4.8-10.8)
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
[2024-12-11] MEDS: cefEPime HCl/D5W 2 GM/50 ML PIGGYBACK IV (08:51)
--- NOTE | 2024-12-11 08:51 | PC.NURSE ---
pt medicated per JUL. delay in abx d/t difficult IV placement, pt required u/s IV. pt reporting 8/10 pain in L hand. also reports he last took methadone and his regular scheduled meds 10 days ago. recent relapse on ETOH (3 sleeves of nips/day), and heroin. provider aware.
[2024-12-11] MEDS: vancomycin/NS 2,000 MG/500 ML PLAST..BAG 250 MG IV (09:33)
--- NOTE | 2024-12-11 10:16 | P.CONOP_ITS ---
History of Present Illness HPI Consult date: 12/11/24 Chief complaint: hand infection Narrative: Mr. Young is a 34-year-old male with a past medical history significant for polysubstance IVDA, ETOH abuse, mood disorder, peripheral neuropathy, prior splenectomy who presents to the emergency department for bilateral hand redness and pain. He reports that the symptoms began roughly 3 days ago when he noticed left-hand redness swelling and pain with movement. He is able to flex and extend all digits but not to end range. He reports performing IV injection of cocaine into the left hand. It was also reported that in the emergency department the patient was experiencing tremors. The patient does have a history of alcohol withdrawal including related seizures. His last alcoholic beverage was 1 day prior to admission. The patient was admitted to the medicine service with orthopedic consult. Review of Systems 2 Review of Systems: Yes all other systems are reviewed and are negative PMF Past Medical History Medical History Opiate abuse, continuous Alcohol withdrawal seizure Endocarditis Surgical History Surgical History History of splenectomy Social History Social History Unable to assess alcohol history related to: Refusing to respond Alcohol intake: current Alcohol intake frequency: 3 or more drinks per day Alcohol type: hard liquor Patient Tobacco Use Status: Current everyday Tobacco user Substance Use Type: Heroin and Marijuana Meds Allergies Allergy/AdvReac Type Severity Reaction Status Date / Time No Known Allergies Allergy Mild NOT Verified 12/11/24 05:44 APPLICABLE Active Medications: Current Medications Acetaminophen (Acetaminophen 325 Mg Tablet) 650 mg PO Q6H PRN PRN Reason: Pain, Mild 1-3,fever,headache Calcium Carbonate (Calcium Carbonate 750 Mg Tab.Chew) 750 mg PO Q4H PRN PRN Reason: Heartburn Sodium Chloride (Ns) 1,000 mls @ 999 mls/hr IV .Q1H1M MAXIMO Stop: 12/11/24 10:45 Lactated Ringer's (Lr) 1,000 mls @ 100 mls/hr IVCONT .Q10H MAXIMO Magnesium Hydroxide (Milk Of Magnesia 30 Ml Oral.Susp) 30 ml PO DAILY PRN PRN Reason: Constipation Melatonin (Melatonin 3 Mg Tablet) 6 mg PO BEDTIME PRN PRN Reason: Insomnia Sodium Chloride (0.9 % Sodium Chloride Flush 3 Ml Syringe) 3 ml IVFLUSH QSHIFT MAXIMO Home Medications ?Medication ?Instructions ?Recorded ?Confirmed ?Last Taken ?Type clonidine HCl 0.1 mg tablet mg PO 12/11/24 Unknown Hi story pregabalin 300 mg capsule 300 mg PO BID 12/11/24 Unkn own History quetiapine 50 mg tablet 50 mg PO BEDTIME 12/11/24 U nknown History thiamine HCl (vitamin B1) 100 mg 100 mg PO DAILY 12/11 Unknown History tablet Physical Exam 2 Vital Signs: Vital Signs: Last Vital Signs Temp 98.0 F 12/11/24 05:40 Pulse 66 12/11/24 08:00 Resp 18 12/11/24 08:00 BP 132/88 12/11/24 08:00 Pulse Ox 99 12/11/24 08:00 O2 Del Method Room Air 12/11/24 08:00 BMI result Body Mass Index 27.5 Extrem: Other: Left hand: Erythema to the dorsal aspect. Lacking about 3 cm from making a closed fist. Able to extend all digits. No tenderness to palpation over the flexor tendon sheaths. No possible abscess. Sensation is reportedly intact. Cap refill is brisk. Right-hand: Erythema to the dorsal aspect of the hand. Able to flex and extend all digits. Able to make a closed fist. Sensation intact. Cap refill brisk. Results Labs 12/11/24 06:25 12/11/24 06:25 Labs: Abnormal lab results 12/11/24 Range/Units 06:25 ESR 17 H (0-15) MM/HR Anion Gap 11 L (12-20) BUN 18 H (9-16) mg/dL AST 68 H (5-37) U/L ALT 119 H (0-40) U/L C-Reactive Protein 1.95 H (< or = 0.50) mg/dL Total Protein 8.2 H (6.5-8.0) g/dL H & H 12/11/24 Range/Units 06:25 Hgb 14.5 (14.0-18.0) g/dl Hct 43.5 (42.0-52.0) % All other labs normal. Assessment and Plan (1) Cellulitis of left hand: Status: Acute No evidence of flexor tenosynovitis at this time -we will continue to monitor IV antibiotics per Medicine recommendation Encouraged gentle range of motion No evidence of abscess on physical exam at this time Orthopedics will continue to monitor for improvement of symptoms Procedures Date of Service Date of Service: 12/11/24
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
--- NOTE | 2024-12-11 11:25 | MHC.EDTECH ---
500mL of yellow urine in urinal, UA collected and sent to lab
[2024-12-11 11:42] LABS: Cannabinoid Screen Urine Not Detected (Not Detect)
--- NOTE | 2024-12-11 12:05 | PHA.PROG ---
Admission Date/Time: December 11, 2024 09:58 Indication: skin + skin structure Weight in k.79 kg Adjusted body weight in Kg: [place] body weight in Kg: Obesity Dosing Indication % IBW: BMI 27.5 Serum Creatinine - Last 168 Hours 12/11/24 06:25 Creatinine 0.84 Estimated CrCl and GFR - Last 168 Hours 12/11/24 06:25 Estim Creat Clear Calc 145.3 Estimated GFR > 60 Vancomycin Loading Dose: 2000mg X1 Current Vancomycin Dosing Regimen: 1500mg Q12H Vancomycin Monitoring using AUC goal of 400 - 600 range with trough as surrogate marker: 552 Date and Time for next Vancomycin Level to be drawn: 12/12 Pharmacist Comments on Vancomycin Plan: Starting patient off with 1500mg Q12H as renal fx is stable and BMI is 27.5, potentially to be reduced to 1250mg Q12H after trough is pulled tomorrow. Vancomycin dosing will take advantage of [employer] as a clinical decision support tool that uses Bayesian modeling to calculate individual patient's pharmacokinetic parameters and forecast the patient's drug concentration time course with the target goal AUC 24 range of 400 - 600 mg/L/hr.
--- NOTE | 2024-12-11 12:07 | MHC.EDTECH ---
this tech wrote a belongings list on the items that are at bed side ONLY (hat and red pen)
--- NOTE | 2024-12-11 12:15 | PC.NURSE ---
Methadone Verified by this RN: [facility] [place] [phone] 145mg 11/29/24 @ 0644 verified by Dg
[2024-12-11] MEDS: PHENobarbitaL sodium 130 MG/ML IM ONCE 338 MG IM (12:18)
[2024-12-11] MEDS: Thiamine HCL 200 MG in 0.9 % Sodium Chloride 100 ML 204 MG IV (12:31)
--- NOTE | 2024-12-11 12:32 | HE.PHANOTE ---
Addendum entered by Thomas Rogers [facility] 12/11/24 13:51: Last received 11/29 @ 0644. Original Note: Methadone Pt last received 145 mg from [facility], [phone], per Dg at facility,.
--- NOTE | 2024-12-11 12:35 | PC.NURSE ---
pt medicated per MAR, educated on importance of keeping arm straight for IVF. methadone verification sent to pharmacy, pt requesting nicotine lozenges - provider notified of both.
[2024-12-11] MEDS: Nicotine Polacrilex Lozenge 2 MG LOZENGE BUCCAL ×2 (12:49→15:20)
[2024-12-11] MEDS: methADONE HCl 20 MG/2 ML ORAL.CONC 40 MG PO (12:51)
--- NOTE | 2024-12-11 13:19 | PHA.MEDREC ---
Addendum entered by Thomas Rogers [facility] 12/11/24 13:58: Reviewed by [facility] Original Note: Pharmacy Consult ? Medication Reconciliation Pharmacy has completed the medication reconciliation. Tried to speak with patient,however he is asleep and will not respond to name. Attempted to call patient contact, however phone is no longer in service. Utilized claims to confirm med list.
[2024-12-11] MEDS: Lactated Ringers 1,000 ML 100 ML IVCONT (13:42)
--- NOTE | 2024-12-11 14:13 | HO.ADDICT_ITS ---
History of Present Illness Date of Service: 12/11/2024 Chief Complaint: hand infection Reason for Consult: OUD Sources of Information: chart reviewed HPI Narrative: Patient is a 34 year old male, with reported history of OUD, endocarditis and AUD who presented to [facility] ED complaining of worsening left hand pain. Admitted with cellulitis and alcohol withdrawal -also started on pheno taper All information obtained via chart review as patient was somnolent and unable to participate in interview when seen by t/w. At admission he reported being engaged in treatment with OTP--dose verified at 145mg QD at [facility] with last dose administered on 11/29 (12 days ago) UDS +cocaine, fentanyl and methadone. Chart review shows last ED admission 09/2024 for opioid overdose. Per admission note, patient reported drinking up top 3 sleeves of nips daily, with last drink being on 12/10 Also reported history of alcohol withdrawal, and withdrawal seizures. Medical Evaluation Reviewed: Yes Review of Systems Review of Systems Yes Unobtainable due to mental status Diagnostics Vital Signs (24Hr): Vital Signs - 24 hr 12/11/24 05:40 12/11/24 08:00 12/11/24 11:16 Temperature 98.0 F 97.7 F Pulse Rate 89 66 67 Respiratory Rate 18 18 12 Blood Pressure 120/82 132/88 112/74 Pulse Oximetry 96 99 97 Oxygen Delivery Method Room Air Room Air Room Air Oxygen Flow Rate 12/11/24 12:19 12/11/24 14:03 Temperature 97.0 F Pulse Rate 72 62 Respiratory Rate 12 13 Blood Pressure 138/85 115/78 Pulse Oximetry 98 Oxygen Delivery Method Room Air Oxygen Flow Rate 96 BMI result Body Mass Index 27.5 Labs 12/11/24 06:25 12/11/24 06:25 Labs: Laboratory Results - last 48 hr 12/11/24 12/11/24 06:25 11:27 WBC 9.3 RBC 4.63 Hgb 14.5 Hct 43.5 MCV 94.0 MCH 31.3 MCHC 33.3 RDW 13.5 Plt Count 317 MPV 10.2 Immature Gran % (Auto) 0.2 Neut % (Auto) 62.0 Lymph % (Auto) 24.4 [place] % (Auto) 10.8 Eos % (Auto) 2.0 Baso % (Auto) 0.6 Lymph # (Auto) 2.3 [place] # (Auto) 1.0 Eos # (Auto) 0.2 Baso # (Auto) 0.1 Abs Immat Gran (auto) 0.02 Absolute Neuts (auto) 5.8 Absolute Nucleated RBC 0.000 Nucleated RBC % (auto) 0.0 ESR 17 H Sodium 139 Potassium 3.6 Chloride 103 Carbon Dioxide 29 Anion Gap 11 L BUN 18 H Creatinine 0.84 Estim Creat Clear Calc 145.3 Estimated GFR > 60 Random Glucose 98 Lactic Acid 0.7 Calcium 8.7 Total Bilirubin 0.3 AST 68 H ALT 119 H Alkaline Phosphatase 98 C-Reactive Protein 1.95 H Total Protein 8.2 H Albumin 4.2 Urine Opiates Screen POSITIVE H Ur Buprenorphine Scrn Not Detected Ur Oxycodone Screen Not Detected Urine Methadone Screen Positive H Urine Fentanyl Screen POSITIVE H Ur Barbiturates Screen Not Detected Ur Phencyclidine Scrn Not Detected Ur Amphetamines Screen Not Detected U Benzodiazepines Scrn Not Detected Urine Cocaine Screen POSITIVE H U Marijuana (THC) Screen Not Detected Ethyl Alcohol < 10 Imaging Radiology Impressions: ITS Impressions Hand X-Ray 12/11/24 08:06 IMPRESSION: Unremarkable examination of the left hand. Electronically signed by: Larry Costa MD 12/11/2024 09:29 AM EDT RP Mental Status Exam Mental Status Exam Level of Consciousness: Sedated (opens eyes briefly to voice, quickly falls back to sleep ) Medications Medications Current Medications Acetaminophen (Acetaminophen 325 Mg Tablet) 650 mg PO Q6H PRN PRN Reason: Pain, Mild 1-3,fever,headache Calcium Carbonate (Calcium Carbonate 750 Mg Tab.Chew) 750 mg PO Q4H PRN PRN Reason: Heartburn Ceftriaxone Sodium (Ceftriaxone Sodium 2 Gm Vial) 2 gm IVPUSH Q24H [facility] Last Admin: 12/11/24 12:25 Dose: 2 gm Clonidine HCl (Clonidine Hcl 0.1 Mg Tablet) 0.1 mg PO BID@0700,1300 [facility]; Protocol Clonidine HCl (Clonidine Hcl 0.2 Mg Tablet) 0.2 mg PO BEDTIME [facility]; Protocol Enoxaparin Sodium (Enoxaparin Sodium 40 Mg/0.4 Ml Syringe) 40 mg SUBCUT Q24H [facility] Last Admin: 12/11/24 12:25 Dose: Not Given Vancomycin HCl 1,500 mg/ (Sodium Chloride) 500 mls @ 333.333 mls/hr IV Q12H [facility] Lactated Ringer's (Lr) 1,000 mls @ 100 mls/hr IVCONT .Q10H [facility] Last Admin: 12/11/24 13:42 Dose: 100 mls/hr Magnesium Hydroxide (Milk Of Magnesia 30 Ml Oral.Susp) 30 ml PO DAILY PRN PRN Reason: Constipation Melatonin (Melatonin 3 Mg Tablet) 6 mg PO BEDTIME PRN PRN Reason: Insomnia Nicotine Polacrilex (Nicotine Polacrilex Lozenge 2 Mg Lozenge) 2 mg BUCCAL Q2H PRN PRN Reason: Nicotine Cravings Last Admin: 12/11/24 12:49 Dose: 2 mg Pharmacy Consult (Consult Rx Etoh Phenob Im/Po) 1 each MISCELLANE ONCE PRN; Protocol PRN Reason: Consult order Pharmacy Consult (Consult Rx Vancomycin Dosing) 1 each MISCELLANE DAILY PRN PRN Reason: Consult order Phenobarbital (Phenobarbital 30 Mg Tablet) 60 mg PO BID [facility] Stop: 12/13/24 21:01 Phenobarbital (Phenobarbital 30 Mg Tablet) 30 mg PO BID [facility] Stop: 12/15/24 21:01 Phenobarbital (Phenobarbital 30 Mg Tablet) 30 mg PO DAILY [facility] Stop: 12/17/24 09:01 Phenobarbital Sodium (Phenobarbital Sodium 130 Mg/Ml Vial Im Q3hx2) 253 mg IM Q3H [facility] Stop: 12/11/24 18:01 Pregabalin (Pregabalin 150 Mg Capsule) 300 mg PO BID [facility] Quetiapine Fumarate (Quetiapine Fumarate 50 Mg Tablet) 50 mg PO BEDTIME [facility] Sodium Chloride (0.9 % Sodium Chloride Flush 3 Ml Syringe) 3 ml IVFLUSH QSHIFT [facility] Thiamine HCl (Thiamine Hcl 100 Mg Tablet) 100 mg PO DAILY [facility] Allergies Allergies Allergy/AdvReac Type Severity Reaction Status Date / Time No Known Allergies Allergy Mild NOT Verified 12/11/24 05:44 APPLICABLE Assessment & Plan Assessment & Plan (1) Opioid use disorder: Status: Acute Code(s): F11.90 - Opioid use, unspecified, uncomplicated Assessment and Plan: * methadone dose verified. Last dose 12 days ago. Today received 40mg in ED. Will add 10mg PRN dose for overnight * AM dose 75mg --dose to be adjusted once patient is able to participate in interview * HIV and hepatitis screens ordered * will follow up in AM Total time managing care of this patient today _30___ minutes. COUNTS INCLUDE 234 BEDS AT THE [facility] Past Medical History Medical History Opiate abuse, continuous Alcohol withdrawal seizure Endocarditis Surgical History Surgical History History of splenectomy Social History Social History Unable to assess alcohol history related to: Refusing to respond Alcohol intake: current Alcohol intake frequency: 3 or more drinks per day Alcohol type: hard liquor Patient Tobacco Use Status: Current everyday Tobacco user Smoked in Last 30 Days: Yes Use of substances other than those prescribed or required for medical reasons: Yes Substance Use Type: Heroin and Marijuana Advance Directives: No Advance Directives Information Provided: No Nutrition Risks: No Nutritional Risk
[2024-12-11] MEDS: PHENobarbitaL sodium 130 MG/ML VIAL IM Q3Hx2 253 MG IM ×2 (15:12→18:42)
--- NOTE | 2024-12-11 16:07 | PC.NURSE ---
Patient sleeping this time, awaiting admission to hospital
[2024-12-12 04:00] VITALS: BP 114/65; PULSE 58; RESP 18; TEMP 36.3; O2SAT 96
[2024-12-12] MEDS: Nicotine Polacrilex Lozenge 2 MG LOZENGE BUCCAL ×3 (05:07→13:36)
[2024-12-12 08:00] VITALS: BP 127/69; PULSE 69; RESP 17; TEMP 36.7; O2SAT 96
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
[2024-12-12] MEDS: methADONE HCl 20 MG/2 ML ORAL.CONC 75 MG PO (09:34)
[2024-12-12] MEDS: Lactated Ringers 1,000 ML 100 ML IVCONT (13:37)
--- NOTE | 2024-12-12 14:28 | PC.NURSE ---
Refusing Labs and VS.
--- NOTE | 2024-12-12 15:44 | MHC.CM.PN ---
Patient reports he is homeless, but sleeps at a friend's house in [place]. Declines residential list. Independent. Denies use of DME. Methadone through [facility], but reports he would like to switch to a clinic in [place]. Message sent to drug and alcohol treatment specialist. No PCP. Declines PCP pamphlet. + [facility]. Declines resource book. No HCP. CM provided education and offered assistance. Patient declined. DP: Goal is return to friend's house via shuttle. CM will continue to follow.
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
--- NOTE | 2024-12-12 16:06 | PC.NURSE ---
Patient leaving MD CARY notified, patient is of sounds mind, able to make his own medical decisions. IVDU, Homeless. IV removed, Security escorted patient out of the building. Risk and benefits explained. Patient still leaving AMA.
--- NOTE | 2024-12-12 19:12 | HO.ADDICTPRO ---
Subjective Subjective Date of Service: 12/12/24 Reason For Visit: hand infection Interim History: late entry: Patient seen in AM by Recovery Support RN -- This afternoon, while on med surg unit, was made aware that patient has made the decision to discharge. t/w went in to meet with patient, who reported he was leaving. This feature writer inquired why, patient stated that he was experiencing withdrawal. This feature writer informed patient that methadone can be ordered immediately to address sx. Patient irritable affect, replying, I am leaving. T/w inquired if patient had received PRN methadone dose that had been ordered. patient reports no. At this point patient no longer wishing to engaged. T/w encouraged patient to wait for last dose letter and present to OTP in the morning Patient walked out of room, unclear if he obtained letter on the way out. Chart reviewed. Patient appears to have been sleeping most of the day, declining lab work. Did take scheduled medications Review of Systems Constitutional: Reports as per HPI Mental Status Exam Mental Status Exam Level of Consciousness: Awake and Alert Patient Behavior: Guarded and Uncooperative Affect Description: Blunted and Angry Speech Pattern: Clear Judgement: Fair Diagnostics Vital Signs (24Hr): Vital Signs - 24 hr 12/11/24 20:00 12/12/24 04:00 12/12/24 08:00 Temperature 97.0 F 97.4 F 98.1 F Pulse Rate 61 58 69 Respiratory Rate 16 18 17 Blood Pressure 129/81 114/65 127/69 Pulse Oximetry 98 96 96 Oxygen Delivery Method Room Air Room Air Room Air BMI result Body Mass Index 25.5 Labs 12/11/24 06:25 12/11/24 06:25 Labs: Laboratory Results - last 48 hr 12/11/24 12/11/24 06:25 11:27 WBC 9.3 RBC 4.63 Hgb 14.5 Hct 43.5 MCV 94.0 MCH 31.3 MCHC 33.3 RDW 13.5 Plt Count 317 MPV 10.2 Immature Gran % (Auto) 0.2 Neut % (Auto) 62.0 Lymph % (Auto) 24.4 [place] % (Auto) 10.8 Eos % (Auto) 2.0 Baso % (Auto) 0.6 Lymph # (Auto) 2.3 [place] # (Auto) 1.0 Eos # (Auto) 0.2 Baso # (Auto) 0.1 Abs Immat Gran (auto) 0.02 Absolute Neuts (auto) 5.8 Absolute Nucleated RBC 0.000 Nucleated RBC % (auto) 0.0 ESR 17 H Sodium 139 Potassium 3.6 Chloride 103 Carbon Dioxide 29 Anion Gap 11 L BUN 18 H Creatinine 0.84 Estim Creat Clear Calc 145.3 Estimated GFR > 60 Random Glucose 98 Lactic Acid 0.7 Calcium 8.7 Total Bilirubin 0.3 AST 68 H ALT 119 H Alkaline Phosphatase 98 C-Reactive Protein 1.95 H Total Protein 8.2 H Albumin 4.2 Urine Opiates Screen POSITIVE H Ur Buprenorphine Scrn Not Detected Ur Oxycodone Screen Not Detected Urine Methadone Screen Positive H Urine Fentanyl Screen POSITIVE H Ur Barbiturates Screen Not Detected Ur Phencyclidine Scrn Not Detected Ur Amphetamines Screen Not Detected U Benzodiazepines Scrn Not Detected Urine Cocaine Screen POSITIVE H U Marijuana (THC) Screen Not Detected Ethyl Alcohol < 10 Imaging Radiology Impressions: ITS Impressions Hand X-Ray 12/11/24 08:06 IMPRESSION: Unremarkable examination of the left hand. Electronically signed by: Larry Costa MD 12/11/2024 09:29 AM EDT Medications Allergies Allergies Allergy/AdvReac Type Severity Reaction Status Date / Time No Known Allergies Allergy Mild NOT Verified 12/11/24 05:44 APPLICABLE Assessment & Plan Assessment & Plan (1) Opioid use disorder: Status: Acute Code(s): F11.90 - Opioid use, unspecified, uncomplicated Assessment and Plan: encouraged patient to present to OTP in the morning. Referral to be sent in AM Total time managing care of this patient today __20__ minutes.
== END 2024-12-12 16:07 | disposition left against medical advice (07) | DRG 383 ==
LOC: HO.ED 07:33 → HO.EDOVER 10:04 → HO.S3 17:03
PROVIDERS: Physician Assistant Medical; Admitting Provider Family Medicine; Emergency Provider Emergency Medicine; Visit Provider Student in an Organized Health Care Education/Training Program
DX: L03.114 Cellulitis of left upper limb (principal); F10.139 Alcohol abuse with withdrawal, unspecified; F11.20 Opioid dependence, uncomplicated; G62.9 Polyneuropathy, unspecified; F17.210 Nicotine dependence, cigarettes, uncomplicated; Z71.6 Tobacco abuse counseling; Z79.899 Other long term (current) drug therapy
CPT/HCPCS: 36415; 73130; 80053; 80307; 83605; 85025; 85652; 86140; 87040; 99285; J0692; J0696; J1885; J2560; J3373; J3374; J3411; J7120; S9485

== ENCOUNTER → 2024-12-11 07:55 | Outpatient (BNV) | payer MEDICAID, SELFPAY | PROVIDERS: Admitting Provider Family Medicine; Emergency Provider Emergency Medicine; Visit Provider Radiology Diagnostic Radiology | DX: L03.114 Cellulitis of left upper limb (principal) | CPT/HCPCS: 73130 ==

== ENCOUNTER → 2024-12-11 09:58 | Outpatient (BNV) | payer MEDICAID, SELFPAY | PROVIDERS: Admitting Provider Family Medicine; Emergency Provider Emergency Medicine; Visit Provider Student in an Organized Health Care Education/Training Program | DX: L03.114 Cellulitis of left upper limb (principal); F10.939 Alcohol use, unspecified with withdrawal, unspecified | CPT/HCPCS: 99222; 99239; 99499 ==

== ENCOUNTER → 2024-12-11 09:58 | Outpatient (BNV) | payer MEDICAID, SELFPAY | PROVIDERS: Admitting Provider Family Medicine; Emergency Provider Emergency Medicine; Visit Provider Physician Assistant | DX: L03.114 Cellulitis of left upper limb (principal) | CPT/HCPCS: 99222 ==

== ENCOUNTER → 2024-12-11 09:58 | Outpatient (BNV) | payer OTHER, SELFPAY | PROVIDERS: Admitting Provider Family Medicine; Emergency Provider Emergency Medicine; Visit Provider Nurse Practitioner Psychiatric/Mental Health | DX: F11.90 Opioid use, unspecified, uncomplicated (principal) | CPT/HCPCS: 99231; 99499 ==

== ENCOUNTER 2025-01-01 04:34 | Emergency (ER) | payer MEDICAID, SELFPAY ==
[2025-01-01 04:44] VITALS: BP 167/91; PULSE 94; RESP 16; TEMP 36.8; O2SAT 100; BMI 22.8
--- NOTE | 2025-01-01 04:44 | PC.NURSE ---
security called to bedside, pt refusing to change at this time demanding to leave. called to bedside to assist pt, per pt okay for d/c. awaitng d.c orders at this time
--- NOTE | 2025-01-01 04:44 | ED.OVERDOSE ---
HPI - Overdose General Chief Complaint: Overdose Stated Complaint: Overdose Time Seen by Provider: 01/01/25 04:44 Source: patient and EMS Mode of arrival: EMS Limitations: no limitations History of Present Illness ED Provider: Dr. Margret Hamlin HPI Narrative: 34-year-old male with history of substance use disorder presenting with an apparent overdose. EMS reports the patient was found by a bystander who gave him intranasal Narcan. Patient denies that he ever received Narcan. States he was ?just sleeping?. He does admit to using ?1 bag of super man at midnight?. States he is not intoxicated and he does not feel as though he is in withdrawal. Denies intentional overdose. Requesting discharge a Related Data Home Medications ?Medication ?Instructions ?Recorded ?Confirmed clonidine HCl 0.1 mg tablet 0.1 mg PO BID@0700,1300 12/11/24 12/11/24 clonidine HCl 0.1 mg tablet 0.2 mg PO BEDTIME 12/11/24 12/11/24 methadone 10 mg/mL oral 145 mg PO DAILY 12/11/24 12/11/24 concentrate (Methadone Intensol) pregabalin 300 mg capsule 300 mg PO BID 12/11/24 12/11/24 quetiapine 50 mg tablet 50 mg PO BEDTIME 12/11/24 12/11/24 Allergies Allergy/AdvReac Type Severity Reaction Status Date / Time No Known Allergies Allergy Mild NOT Verified 01/01/25 04:47 APPLICABLE Review of Systems Review of Systems: as per HPI, full review of systems performed and negative but for the above mentioned pertinent positives and negatives. PMFSH Past Medical History Medical History Opiate abuse, continuous Alcohol withdrawal seizure Endocarditis Surgical History History of splenectomy Social History Social History Household Members: None Housing: Homeless Do you presently have visiting nurse or other home services: No Unable to assess alcohol history related to: Refusing to respond Alcohol intake: current Alcohol intake frequency: 3 or more drinks per day Alcohol type: hard liquor Patient Tobacco Use Status: Current everyday Tobacco user Tobacco use type: Cigarette Cigarette Packs Per Day: 1 Cigarettes Per Day: 20.0 e-Cigarette/Vaping Use: Currently Using Second Hand Smoke Exposure: No Substance Use Type: Heroin and Marijuana Advance Directives: No Advance Directives Information Provided: No service: No Physical Exam Exam: Exam: GENERAL: Unkempt, no acute distress. SKIN: Normal skin color for ethnicity, warm, dry, no rashes noted. HEENT:? Normocephalic, atraumatic, no stridor, posterior oropharynx nonerythematous, dentition intact, EOMI. NECK: Soft, supple, full ROM, midline structures nontender, no step-offs, no deformities, no lymphadenopathy. CHEST: Heart regular rate and rhythm, no murmurs, symmetric chest rise and fall. PULMONARY: Clear to auscultation bilaterally, no labored breathing, no wheezes/rhales/rhonchi. ABDOMINAL: Soft, nondistended, nontender, positive bowel sounds in all quadrants. : Deferred. MUSCULOSKELETAL: Normal tone, full range of motion, no deformities, no peripheral edema. NEURO: Alert and oriented x3, CN II through XII intact, equal strength and sensation bilateral upper and lower extremities, no focal neurologic deficits.? PSYCHIATRIC: Flat affect, poor eye contact, withdrawn Vital Signs: Vital Signs: Last Vital Signs Temp 98.2 F 01/01/25 05:02 Pulse 94 01/01/25 05:02 Resp 16 01/01/25 05:02 BP 167/91 H 01/01/25 05:02 Pulse Ox 100 01/01/25 05:02 O2 Del Method Room Air 01/01/25 05:02 BMI result Body Mass Index 22.8 Medications Administered Discontinued Medications Generic Name Dose Route Start Last Admin Trade Name Freq PRN Reason Stop Dose Admin Naloxone HCl 8 mg 01/01/25 04:46 01/01/25 04:51 Naloxone Hcl Nasal Take Home 4 Mg [place] NOSTRILALT 01/01/25 04:47 8 mg ONCE ONE Administration Medical Decision Making Medical Decision Making MDM Narrative: Patient presents with a chief complaint of possible overdose. Differential diagnosis includes life-threatening toxidrome such as anticholinergic syndrome, serotonin syndrome, sympathomimetic, opioid induced, sedative hypnotic, among others. Also includes co-ingestions, acidosis, intracranial process such as mass, hemorrhage, or CVA. Patient evaluated to determine if there is adequate GCS to maintain their airway as well as for hemodynamic stability. He has capacity to make decisions in my opinion. He is stable for discharge at this time. Counselled on safety of current supply of opiate drugs on the street right now and the sheer number of overdoses we have been seeing lately. Given narcan take home. Discharged in stable condition. Differential Diagnosis Differential Diagnoses: The differential diagnosis associated with the presentation includes (as above) Admission/Observation Consideration of admission/observation: Escalation of care including admission/observation considered Independent Historian Clinical information obtained from an independent historian. History obtained from or confirmed by: EMS Prescription Management I considered prescription management with: Other (Narcan kit) Chronic Conditions Patient?s care impacted by: Other (OUD) Social Determinants Patient?s care significantly limited by Social Determinants of Health including: Inadequate housing, Alcoholism and drug addiction in family and Problems related to primary support group Discharge Plan Discharge Clinical Impression: Accidental overdose, Opioid use disorder, Housing insecurity Patient Disposition: Home, Self-Care Instructions: Adult Overdose (ED) Additional Instructions: Opiate use disorder You were seen in our Emergency Department today for treatment of opiate use disorder. You may have been dosed with medication for opiate use disorder (MOUD) in the form of suboxone or methadone. You may experience feeling some withdrawal symptoms and this is normal. The? dose in the Emergency Department is a starting dose and meant to be titrated up once you follow up with a clinic. Please do not feel discouraged, it is a process. The nurse has reviewed with you where to follow up and what information to bring with you, to continue treatment. You also may have been given naloxone (narcan) to take home with you. This medication is used to potentially treat opiate overdose. If you decide you want to stop or cut down on how much you?re using, you can call or walk into our outpatient Addiction Treatment office: [place] (M-F 9am-5p) [address] [facility], [address] [phone] You may have been provided with safer injection?items, please take time to take care of YOU and your health. Use new supplies whenever possible to lessen the chances of infections and other illnesses.? If you need more supplies, please go [facility],? [address] [place] [address] OR you can call or text to coordinate delivery of safer supplies. You were also provided a list of several treatment providers in the area.? If you experience any worsening symptoms you cannot control please return to the ED or call 911. Please follow up at your next appointment. Things to look out for are fevers, chest pain, shortness of breath, severe pain, dizziness, fainting or any other concerns. Prescriptions: No Action clonidine HCl 0.1 mg tablet 0.1 mg PO BID@0700,1300 Rx Instructions: Take 1 tablet by mouth as directed Take 1 at 7AM, 1 at Noon and 2 at Bedtime pregabalin 300 mg capsule 300 mg PO BID quetiapine 50 mg tablet 50 mg PO BEDTIME methadone [Methadone Intensol] 10 mg/mL Concentrate 145 mg PO DAILY clonidine HCl 0.1 mg tablet 0.2 mg PO BEDTIME Rx Instructions: Take 1 tablet by mouth as directed Take 1 at 7AM, 1 at Noon and 2 at Bedtime Interventions: ED Discharge Assessment Last Done: 01/01/25 05:02 Discharge Date/Time: 01/01/25 05:02 Print Language: Turkish
[2025-01-01] MEDS: Naloxone HCl Nasal TAKE HOME 4 MG SPRAY 8 MG NOSTRILALT (04:51)
--- OUTSIDE RECORDS SUMMARY | 2025-01-01 04:52 | XMS_ITS | Clinical Summary ---
Author Organization [address] [facility] Address [address] [place] [address] Phone Care Team Providers Care Blanket Winder Helper Name Role Phone Deepthi Farnsworth Primary Care Provider [phone] Social History Tobacco Use Types Packs/Day Years Used Date Smoking Tobacco: Never Assessed Sex and Gender Information Value Date Recorded Sex Assigned at Not on file Legal Sex Male 2:52 AM EST Gender Identity Not on file Sexual Orientation Not on file Plan of Treatment Health Maintenance Due Date Last Done Comments DTaP,Tdap,and Td Vaccines (1 - Tdap) 10/29/2007 Hepatitis B Vaccines (1 of 3 - 19+ 3-dose series) 10/29/2007 COVID-19 Vaccine ( - 2023-2 5 season) 2024 Depression Screening 05/17/2024 Cholesterol Screening (Lipid Panel) 08/29/2024 HIV Screening 08/29/2024 Hepatitis C Screening 08/29/2024 Social Influencers of Health Screening 08/29/2024 Influenza Vaccine (#1) 2025 HIB Vaccines Aged Out No longer eligi ble based on patient's age to complete this topic HPV Vaccines Aged Out No longer eligi ble based on patient's age to complete this topic Hepatitis A Vaccines Aged Out No long er eligible based on patient's age to complete this topic IPV Vaccines Aged Out No longer eligi ble based on patient's age to complete this topic MMR Vaccines Aged Out No longer eligi ble based on patient's age to complete this topic Meningococcal ACWY Vaccine Aged Out N o longer eligible based on patient's age to complete this topic Meningococcal B Vaccine Aged Out No l onger eligible based on patient's age to complete this topic Pneumococcal Vaccine: Pediat rics (0 to 5 Years) and At-Risk Patients (6 to 49 Years) Aged Out No longer eligible b ased on patient's age to complete this topic RSV Immunization Patients Un elio 20 months Aged Out No longer eligible b ased on patient's age to complete this topic Varicella Vaccines Aged Out No longer eligible based on patient's age to complete this topic Care Teams Blanket Winder Helper Relationship Specialty Start Date End Date TiburcioDamion laoja [address] [place] [address] PCP - General Family Medicine 08/29/24
[2025-01-01 05:02] VITALS: BP 167/91; PULSE 94; RESP 16; TEMP 36.8; O2SAT 100
== END 2025-01-01 05:02 | disposition home or self-care (01) ==
LOC: HO.ED 04:50
PROVIDERS: Emergency Provider Emergency Medicine
DX: T65.91XA Toxic effect of unspecified substance, accidental (unintentional), initial encounter (principal); Y92.9 Unspecified place or not applicable; F11.90 Opioid use, unspecified, uncomplicated; Z59.9 Problem related to housing and economic circumstances, unspecified
CPT/HCPCS: 99282; 99283

== ENCOUNTER 2025-02-08 00:57 | Inpatient (IN) | payer MEDICAID, SELFPAY ==
[2025-02-08] VITALS (10 sets, daily range): BP systolic 116–142; BP diastolic 59–103; PULSE 60–85; RESP 14–18; TEMP 36.2–36.8; O2SAT 94–99; BMI 23.1; BMI 22.0
--- NOTE | 2025-02-08 01:16 | ED.GENADULT ---
[facility] - General Adult General Chief complaint: ETOH/Substance Use Stated complaint: drug use + depression Time Seen by Provider: 02/08/25 01:16 Source: patient Mode of arrival: ambulatory Limitations: no limitations History of Present Illness ED Provider: Dr. Vaz [facility] narrative: 34-year-old male history of opioid dependence on methadone alcohol use disorder presented hospital today for evaluation of possible detox. Patient states he is not taking his methadone in the past 3 days last drink was yesterday. Patient stated his methadone clinic is at [place]. He has unable to go there. Related Data Home Medications ?Medication ?Instructions ?Recorded ?Confirmed pregabalin 300 mg capsule 300 mg PO BID 12/11/24 02/08/25 quetiapine 50 mg tablet 50 mg PO BEDTIME 12/11/24 02/08/25 methadone 10 mg/mL oral 70 mg PO DAILY 02/08/25 02/08/25 concentrate (Methadone Intensol) Allergies Allergy/AdvReac Type Severity Reaction Status Date / Time No Known Allergies Allergy Mild NOT Verified 02/08/25 01:08 APPLICABLE Review of Systems Review of Systems: Pertinent review of systems as mentioned in [facility]. All other system otherwise negative. [facility] Past Medical History [facility] Narrative: Medical history as mentioned in HPI Medical History Opiate abuse, continuous Alcohol withdrawal seizure Endocarditis Surgical History History of splenectomy Social History Social History Household Members: None Housing: Homeless Do you presently have visiting nurse or other home services: No Alcohol intake: current Alcohol intake frequency: 3 or more drinks per day Alcohol type: hard liquor Patient Tobacco Use Status: Current everyday Tobacco user Tobacco use type: Cigarette Cigarette Packs Per Day: 1 Cigarettes Per Day: 20.0 Smoked in Last 30 Days: Yes e-Cigarette/Vaping Use: Currently Using Second Hand Smoke Exposure: No Use of substances other than those prescribed or required for medical reasons: Yes Substance Use Type: Heroin Substance Use Frequency: Daily Last Used Substance: Hours (ago) Any prior treatment program specific to substance use: Yes Advance Directives: No Advance Directives Information Provided: Yes service: No Physical Exam ED Exam Exam: General: Pleasant, no distress, interacting appropriately Head: Normacephalic, atraumatic ENT: oral mucosa moist, neck supple, no tracheal deviation Cardiovascular: regular rate, regular rhythm, no murmurs, rubbing, gallops Respiratory: CTAB, no wheeze, rales, rhonchi Gastrointestinal: Soft, non distended, non tender, non guarding Extremities: No limb pain or swelling, no calf tenderness Neurological: Awake and alert, no facial droop noted Skin: Warm and dry Psychiatric: Appropriate mood and thoughts Vital Signs: Vital Signs - 24 hr 02/08/25 01:00 02/08/25 02:01 02/08/25 06:23 Temperature 97.8 F 98.3 F Pulse Rate 68 85 Respiratory Rate 16 17 16 Blood Pressure 132/61 142/103 H Pulse Oximetry 98 98 Oxygen Delivery Method Room Air Room Air Room Air 02/08/25 08:00 Temperature 97.1 F Pulse Rate 60 Respiratory Rate 18 Blood Pressure 139/78 Pulse Oximetry 98 Oxygen Delivery Method Room Air BMI result Body Mass Index 23.1 Course Reevaluation(s) Reevaluation #1: Time: Date: 02/08/25 Provider: DR. Mckeon Recovery team input is appreciated, patient is in active CIWA score of 14 alcohol withdrawal will start the patient on phenobarb, patient also will be started on methadone 70 mg confirmed from methadone clinic. Will admit the patient to medical service for alcohol withdrawal. Time: 08: Medications Administered Discontinued Medications Generic Name Dose Route Start Last Admin Trade Name Freq PRN Reason Stop Dose Admin Diazepam 5 mg 02/08/25 02:32 02/08/25 02:38 Diazepam 5 Mg Tablet PO 02/08/25 02:33 5 mg ONCE ONE Administration Methadone HCl 30 mg 02/08/25 02:24 02/08/25 02:42 Methadone Hcl 10 Mg Tablet PO 02/08/25 02:25 30 mg ONCE ONE Administration Medical Decision Making Medical Decision Making MDM Narrative: 34-year-old male history opioid use disorder on methadone, alcohol use disorder presented hospital today for evaluation of detox. Patient is unable to provide address or name of his clinic for methadone. Patient stated that he is withdrawing from alcohol and methadone. We will plan to start patient on small 30 mg methadone. To assist with possible opioid withdrawal. 5 mg p.o. Valium will be provided the patient. We will have nursing staff observe the patient does time. Plan to consult the care team for assistance with substance use and evaluate for detox resources. Patient will be signed out to oncoming provider pending care team evaluation and recommendations. He denies any homicidal or suicide ideation at this time Differential Diagnosis Differential Diagnoses: The differential diagnosis associated with the presentation includes Alcohol withdrawal, opioid withdrawal, homelessness, suicide ideation Lab Data MDM Lab Attestation statement: I reviewed the patient's lab results. 02/08/25 01:41 02/08/25 01:41 Labs: Lab Results 02/08/25 Range/Units 01:41 WBC 8.6 (4.8-10.8) X10*3/uL RBC 4.36 L (4.60-5.80) X10*6/uL Hgb 14.0 (14.0-18.0) g/dl Hct 40.6 L (42.0-52.0) % MCV 93.1 (80.0-98.0) fL MCH 32.1 (27.0-33.0) pg MCHC 34.5 (31.0-36.0) g/dl RDW 13.2 (11.0-16.0) % Plt Count 313 (160-400) X10*3/uL MPV 10.1 (9.4-12.4) fL Immature Gran % (Auto) Cancelled Neut % (Auto) Cancelled Lymph % (Auto) Cancelled [place] % (Auto) Cancelled Eos % (Auto) Cancelled Baso % (Auto) Cancelled Lymph # (Auto) Cancelled [place] # (Auto) Cancelled Eos # (Auto) Cancelled Baso # (Auto) Cancelled Abs Immat Gran (auto) Cancelled Absolute Neuts (auto) Cancelled Absolute Nucleated RBC 0.000 (0.0-0.012) X10*3/uL Nucleated RBC % (auto) 0.0 (0.0-0.2) /100WBC Neutrophils % (Manual) 63 (45-73) % Band Neutrophils % 1 L (3-5) % Lymphocytes % (Manual) 16 L (20-40) % Atypical Lymphs % (Man) 12 H (0-6) % Monocytes % (Manual) 7 (2-11) % Basophils % (Manual) 1 (0-2) % Abs Neuts (Manual) 5.5 (2.0-8.3) X10*3/uL Lymphocytes # (Manual) 1.4 (1.2-4.9) X10*3/uL Atyp Lymphs # (Manual) 1.0 x10*3/uL Monocytes # (Manual) 0.6 (0.1-1.2) X10*3/uL Basophils # (Manual) 0.1 (0.0-0.2) X10*3/uL Smudge Cells PRESENT Platelet Estimate NORMAL (NORMAL) Plt Morphology Comment NORMAL RBC Morphology NOTED Schistocytes 1+ (0-2) /OIF Sodium 140 (135-145) mmol/L Potassium 3.9 (3.3-5.1) mmol/L Chloride 104 (96-108) mmol/L Carbon Dioxide 27 (22-29) mmol/L Anion Gap 13 (12-20) BUN 14 (9-16) mg/dL Creatinine 0.74 (0.5-1.4) mg/dL Estim Creat Clear Calc 159.2 Estimated GFR > 60 Random Glucose 111 (60-115) mg/dL Calcium 9.4 D (8.4-10.2) mg/dL Total Bilirubin 0.3 (0.0-1.0) mg/dL AST 54 H (5-37) U/L ALT 89 H (0-40) U/L Alkaline Phosphatase 83 (39-117) U/L Total Protein 8.3 H (6.5-8.0) g/dL Albumin 4.0 (3.5-5.0) g/dL Urine Opiates Screen POSITIVE H (Not Detect) Ur Buprenorphine Scrn Not Detected (Not Detect) ng/mL Ur Oxycodone Screen Not Detected (Not Detect) ng/mL Urine Methadone Screen Positive H (Not Detect) ng/mL Urine Fentanyl Screen POSITIVE H (Not Detect) Ur Barbiturates Screen Not Detected (Not Detect) Ur Phencyclidine Scrn Not Detected (Not Detect) Ur Amphetamines Screen Not Detected (Not Detect) U Benzodiazepines Scrn Not Detected (Not Detect) Urine Cocaine Screen POSITIVE H (Not Detect) U Marijuana (THC) Screen Not Detected (Not Detect) Ethyl Alcohol < 10 mg/dL Discharge Plan Discharge Clinical Impression: Polysubstance dependence, Alcohol withdrawal Patient Disposition: Admitted As Inpatient Print Language: Polish
--- OUTSIDE RECORDS SUMMARY | 2025-02-08 01:36 | XMS_ITS | Encounter Summary ---
Author Organization [facility] Address [address] [place] [address] Care Team Providers Care Machine Shop Supervisor Name Role Phone Deepthi Farnsworth Primary Care Provider [phone] Encounter Details Date Type Department Care Team (Late st Contact Info) Description 08/29/2024 Lab Requisition [facility] Lab [address] [place] [address] Deepthi Farnsworth [address] [place] [address] Other fpc (current) drug therapy Social History Tobacco Use Types Packs/Day Years Used Date Smoking Tobacco: Never Assessed Sex and Gender Information Value Date Recorded Sex Assigned at Not on file Legal Sex Male 2:52 AM EST Gender Identity Not on file Sexual Orientation Not on file documented as of this encounter Plan of Treatment Not on file documented as of this encounter Procedures Procedure Name Priority Date/Time Associated Diagnosis Comments COMPREHENSIVE METABOLIC PANEL Routine 08/29/2024 7:00 AM EDT Other rat exterminator (current) drug therapy documented in this encounter Results * (ABNORMAL) Comprehensive metabolic panel (08/29/2024 7:00 AM EDT) Sodium 138 133 - 145 mmol/L LAB CHEMISTRY METHOD 08/29/2024 1:02 PM EDT [facility] Potassium 4.8 3.5 - 5.5 mmol/L LAB CHEMISTRY METHOD 08/29/2024 1:02 PM EDT [facility] Chloride 101 96 - 110 mmol/L LAB CHEMISTRY METHOD 08/29/2024 1:02 PM [facility] CO2 32 21 - 32 mmol/L LAB CHEMISTRY METHOD 08/29/2024 1:02 PM [facility] Anion Gap 5 3 - 11 LAB CHEMISTRY METHOD 08/29/2024 1:02 PM [facility] Glucose 70 70 - 100 mg/dL LAB CHEMISTRY METHOD 08/29/2024 1:02 PM [facility] BUN 15 5 - 25 mg/dL LAB CHEMISTRY METHOD 08/29/2024 1:02 PM [facility] Creatinine 0.98 0.70 - 1.30 mg/dL LAB CHEMISTRY METHOD 08/29/2024 1:02 PM [facility] eGFR 103 >=60 mL/min/1. 73m2 LAB CHEMISTRY METHOD 08/29/2024 1:02 PM [facility] Comment:Calculation based on the Chronic Kidney Disease Epidemiology Collaboration (CKD-EPI) equation refit without adjustment for race. BUN/Creatinine Ratio 15.3 LAB CHEMISTRY METHOD 08/29/2024 1:02 [facility] Calcium 9.5 8.5 - 10.5 mg/dL LAB CHEMISTRY METHOD 08/29/2024 1:02 [facility] AST (SGOT) 51(H) 10 - 42 unit/L LAB CHEMISTRY METHOD 08/29/2024 1:02 [facility] ALT (SGPT) 107(H) 10 - 60 unit/L LAB CHEMISTRY METHOD 08/29/2024 1:02 PM [facility] Alkaline Phosphatase 83 42 - 121 unit/L LAB CHEMISTRY METHOD 08/29/2024 1:02 PM [facility] Total Protein 7.9 6.0 - 8.0 g/dL LAB CHEMISTRY METHOD 08/29/2024 1:02 [facility] Albumin 3.2 3.2 - 5.0 g/dL LAB CHEMISTRY METHOD 08/29/2024 1:02 PM [facility] Total Bilirubin 0.3 0.0 - 1.4 mg/dL LAB CHEMISTRY METHOD 08/29/2024 1:02 PM EDT [facility] Blood Venous blood specimen / Unknown Venipuncture / Unknown 08/29/2024 7:00 AM EDT 08/29/2024 11:12 AM EDT Deepthi Farnsworth LAB BLOOD ORDERABLES Final Resul t [facility] [address] [place] [address], documented in this encounter Visit Diagnoses Diagnosis Other rat exterminator (current) drug therapy documented in this encounter Care Teams Machine Shop Supervisor Relationship Specialty Start Date End Date Deepthi Farnsworth [address] [place] [address] PCP - General Family Medicine 08/29/24 documented as of this encounter
--- OUTSIDE RECORDS SUMMARY | 2025-02-08 01:36 | XMS_ITS | Clinical Summary ---
Author Organization [address] [facility] Address [address] [place] [address] Phone Care Team Providers Care Senior Logistics Manager Name Role Phone Deepthi Farnsworth Primary Care Provider [phone] Social History Tobacco Use Types Packs/Day Years [...] of 3 - 19+ 3-dose series) 10/29/2007 Depression Screening 05/17/2024 Cholesterol Screening (Lipid Panel) 08/29/2024 HIV Screening 08/29/2024 Hepatitis C Screening 08/29/2024 Social Influencers of Health Screening 08/29/2024 COVID-19 Vaccine ( - 2023-2 5 season) 2025 Influenza Vaccine (#1) 2025 HIB Vaccines Aged [...] age to complete this topic Care Teams Senior Logistics Manager Relationship Specialty Start Date End Date TiburcioDamion laoja [address] [place] [address] PCP - General Family Medicine 08/29/24
[2025-02-08 01:48] LABS: Hematocrit 40.6 % (42.0-52.0); Hemoglobin 14.0 g/dl (14.0-18.0); Mean Corpuscular HGB Conc 34.5 g/dl (31.0-36.0); Mean Corpuscular Hemoglobin 32.1 pg (27.0-33.0); Mean Corpuscular Volume 93.1 fL (80.0-98.0); NRBC Abs Auto 0.000 X10*3/uL (0.0-0.012); NRBC Pct Auto 0.0 /100WBC (0.0-0.2); Platelet Count 313 X10*3/uL (160-400); Red Blood Count 4.36 X10*6/uL (4.60-5.80); White Blood Count 8.6 X10*3/uL (4.8-10.8)
[2025-02-08 01:59] LABS: Cannabinoid Screen Urine Not Detected (Not Detect)
[2025-02-08 02:11] LABS: Alanine Aminotransferase 89 U/L (0-40); Albumin Level 4.0 g/dL (3.5-5.0); Alkaline Phosphatase 83 U/L (39-117); Anion Gap 13 (12-20); Aspartate Amino Transferase 54 U/L (5-37); Blood Urea Nitrogen 14 mg/dL (9-16); Calcium 9.4 mg/dL (8.4-10.2); Carbon Dioxide 27 mmol/L (22-29); Chloride 104 mmol/L (96-108); Creatinine Clr Calc Pharmacy 159.2; Estimated Glomerular Filt Rate > 60; Potassium 3.9 mmol/L (3.3-5.1); Sodium 140 mmol/L (135-145); Total Protein 8.3 g/dL (6.5-8.0)
[2025-02-08 02:13] LABS: Atypical Lymph Absolute Manual 1.0 x10*3/uL; Atypical Lymphs Percent Manual 12 % (0-6); Band Neutrophils Percent 1 % (3-5); Basophils Abs Manual 0.1 X10*3/uL (0.0-0.2); Basophils Percent Manual 1 % (0-2); Lymphocytes Absolute Manual 1.4 X10*3/uL (1.2-4.9); Lymphocytes Percent Manual 16 % (20-40); Monocytes Absolute Manual 0.6 X10*3/uL (0.1-1.2); Monocytes Percent Manual 7 % (2-11); Neutrophils Absolute Manual 5.5 X10*3/uL (2.0-8.3); Neutrophils Percent Manual 63 % (45-73); RBC Morphology NOTED; Schistocytes 1+ (0-2) /OIF
[2025-02-08 02:14] LABS: Smudge Cells PRESENT
--- NOTE | 2025-02-08 02:23 | PC.NURSE ---
Pt provided sandwich and gingerale.
--- NOTE | 2025-02-08 02:27 | PC.NURSE ---
notified provider, Dr. Vaz that pt scored a 6 for CIWA and 10 for COWS. PT was unable to provide tw the name of his clinic for methadone, and provide his current med list but we have no recent claims and pt was not able remember his pharmacy in [place]
--- NOTE | 2025-02-08 02:43 | PC.NURSE ---
Pt medicated as per JUL. Plan of care ongoing
--- NOTE | 2025-02-08 06:49 | PC.NURSE ---
Assumed care of patient at 0645, patient appears to be in no apparent distress this am, calm and cooperative, offering no complaints to this RN. Continue plan of care for CARE team follow up
--- NOTE | 2025-02-08 07:59 | PC.NURSE ---
Methadone verified with [facility] 70mg daily last dosed 02/04 Pt now scoring 14 on CIWA
--- NOTE | 2025-02-08 08:23 | PHA.MEDREC ---
Pharmacy Consult ? Medication Reconciliation Pharmacy has reviewed the medication reconciliation done by nursing.
--- NOTE | 2025-02-08 08:23 | HE.PHANOTE ---
RE: METHADONE DOSING Last dose of methadone 70 mg was given on 02/04/25 @0712 at [facility] [phone] per JENNY Ceja.
--- NOTE | 2025-02-08 08:39 | MHC.CARE ---
Pt will be medically admitted for ETOH withdrawl per ED provider.
[2025-02-08] MEDS: methADONE HCl 20 MG/2 ML ORAL.CONC 70 MG PO (08:54)
[2025-02-08] MEDS: PHENobarbitaL sodium 130 MG/ML IM ONCE 326 MG IM (08:57)
--- NOTE | 2025-02-08 10:46 | PC.NURSE ---
Pt belongings moved from POD locker to [facility] port shelf #4 at this time d/t being relocated out of POD
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
[2025-02-08] MEDS: PHENobarbitaL sodium 130 MG/ML VIAL IM Q3Hx2 245 MG IM (16:43)
--- NOTE | 2025-02-08 16:58 | MHC.RECOVRN ---
Tw attempted to meet with pt to offer recovery support and resources. On approach pt was resting with eye mask on, did not respond to name being called, however respirations were even and unlabored and vitals wnl. Pt did not appear to be in any acute distress. Chart review notes pt received a total of 100mg of methadone today TW to return tomorrow to complete assessment/evaluation
[2025-02-08] MEDS: 0.9 % Sodium Chloride Flush 3 ML SYRINGE IVFLUSH (21:44)
[2025-02-09 03:35] VITALS: RESP 16
--- NOTE | 2025-02-09 03:55 | PC.NURSE ---
Patient is A&Ox4, resistive to care. Pt refused scheduled vitals this morning as well as CIWA assessment. Pt continues to demand Just let me sleep . Educated on importance of vitals and assessments for safety. Pt continues to refuse despite this. Covering Dr. Weir notified. Breathing remains even and unlabored without distress on room air. Bed alarm on and safety measures continue in place, including seizure and aspiration precautions, in-room camera. Plan of care ongoing.
[2025-02-09 07:17] VITALS: BP 117/82; PULSE 61; RESP 18; TEMP 36.6; O2SAT 96
[2025-02-09] MEDS: methADONE HCl 20 MG/2 ML ORAL.CONC 70 MG PO (08:00)
[2025-02-09] MEDS: 0.9 % Sodium Chloride Flush 3 ML SYRINGE IVFLUSH (08:00)
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
--- NOTE | 2025-02-09 09:18 | PM.EVENT ---
Event Note Date of Service: 02/09/25 Event Note: Addiction consult place for patient with AUD and OUD Admitted and started on phenobarbital and methadone Yesterday, 02/08, patient sleeping most of the day. This morning clinical data assistant advising that patient is requesting to discharge. C/o opiate withdrawal sx, had just received methadone 70mg and phenobarbital dose. T/w ordered additional 20mg methadone (total of 90mg) clinical data assistant followed up with patient. Patient declining to wait for extra 20mg dose Declining referral and last dose letter for OTP, stating that he did want to sit through an intake. Time Spent With Patient Time: Total time managing care of this patient today ____ minutes.
--- NOTE | 2025-02-09 09:19 | MHC.RECOVRN ---
Tw met with pt in 474 for consult to Addiction Medicine for opiate/ETOH withdrawal. On approach pt was laying in bed, rocking. Pt was irritable and reported being dope sick . He reports feeling like sh*t . Pt very difficult to engage. He had received 70mg of methadone in addition to his scheduled phenobarbital. He reports using a pack a day and states he wants to leave. Pt infomred that methadone could potentially be increased. TW met with Marisol Tristan DOWEL SANDER OPERATOR to discuss case and an additional 20mg of methadone was ordered. TW went to revisit patient. Pt reports he is leaving and does not want additional 20mg. Pt also declined a referral to an [facility]TP for dosing in the community. Pt was a self directed discharge and left without receiving his last dose letter.
== END 2025-02-09 09:05 | disposition left against medical advice (07) | DRG 770 ==
LOC: HO.ED 08:29 → HO.EDOVER 08:44 → HO.IMC 15:04
PROVIDERS: Admitting Provider Hospitalist; Emergency Provider Student in an Organized Health Care Education/Training Program; Visit Provider Internal Medicine
DX: F10.239 Alcohol dependence with withdrawal, unspecified (principal); F11.23 Opioid dependence with withdrawal; F17.210 Nicotine dependence, cigarettes, uncomplicated; F19.20 Other psychoactive substance dependence, uncomplicated; Z71.6 Tobacco abuse counseling; G62.9 Polyneuropathy, unspecified; Z79.899 Other long term (current) drug therapy
CPT/HCPCS: 36415; 80053; 80307; 85007; 85025; 85027; 99285; J2560; S9485

== ENCOUNTER → 2025-02-08 08:17 | Outpatient (BNV) | payer OTHER, SELFPAY | PROVIDERS: Admitting Provider Hospitalist; Emergency Provider Student in an Organized Health Care Education/Training Program; Visit Provider Nurse Practitioner Psychiatric/Mental Health | DX: F10.130 Alcohol abuse with withdrawal, uncomplicated (principal) | CPT/HCPCS: 99499 ==

== ENCOUNTER → 2025-02-08 08:17 | Outpatient (BNV) | payer MEDICAID, SELFPAY | PROVIDERS: Admitting Provider Hospitalist; Emergency Provider Student in an Organized Health Care Education/Training Program; Visit Provider Internal Medicine | DX: F10.939 Alcohol use, unspecified with withdrawal, unspecified (principal) | CPT/HCPCS: 99222; 99239 ==

== ENCOUNTER 2025-02-11 08:52 | Emergency (ER) | payer MEDICAID, SELFPAY ==
[2025-02-11 08:59] VITALS: BP 121/68; PULSE 72; RESP 18; TEMP 36.6; O2SAT 98; BMI 22.5
--- NOTE | 2025-02-11 09:14 | ED.GENADULT ---
HPI - General Adult General Chief complaint: General Medical Stated complaint: missed methadone Time Seen by Provider: 02/11/25 09:03 Source: patient Mode of arrival: ambulatory Limitations: no limitations History of Present Illness ED Provider: OTIS Stallworth HPI narrative: 34-year-old male presents requesting his methadone dose, he is scheduled to go to the clinic tomorrow to establish care he was recently discharged from this facility. He takes 70 mg. He is also requesting a short script for his Lyrica which she ran out of he takes 300 mg b.i.d.. I will confirm this on the HUMAN RELATIONS PROFESSOR. He denies any medical complaints, chest pain, shortness breath, nausea, vomiting, abdominal pain, headache, vision changes, dizziness and weakness. Related Data Home Medications ?Medication ?Instructions ?Recorded ?Confirmed pregabalin 300 mg capsule 300 mg PO BID 12/11/24 02/08/25 quetiapine 50 mg tablet 50 mg PO BEDTIME 12/11/24 02/08/25 methadone 10 mg/mL oral 70 mg PO DAILY 02/08/25 02/08/25 concentrate (Methadone Intensol) Previous Rx's ?Medication ?Instructions ?Recorded pregabalin 300 mg capsule (Lyrica) 300 mg PO BID #14 caps 02/11/25 Allergies Allergy/AdvReac Type Severity Reaction Status Date / Time No Known Allergies Allergy Mild NOT Verified 02/11/25 09:02 APPLICABLE Review of Systems Review of Systems: Yes all other systems are reviewed and are negative PMFSH Past Medical History Attestation statement: The following information was validated with the patient. Source: old records reviewed and nursing notes reviewed Medical History Opiate abuse, continuous Alcohol withdrawal seizure Endocarditis Surgical History History of splenectomy Social History Social History Household Members: Unknown / Unable to assess Housing: Homeless Do you presently have visiting nurse or other home services: No Alcohol intake: current Alcohol intake frequency: 3 or more drinks per day Alcohol type: hard liquor Comment: seizure precautions in place Patient Tobacco Use Status: Current everyday Tobacco user Tobacco use type: Cigarette Cigarette Packs Per Day: 1 Cigarettes Per Day: 20.0 e-Cigarette/Vaping Use: Currently Using Second Hand Smoke Exposure: No Substance Use Type: Heroin Advance Directives: No Advance Directives Information Provided: No Do you have a plan to hurt others: No Plan service: No Physical Exam ED Exam Exam: Appearance: Alert.? Oriented X3.? No acute distress.? Head: Normocephalic, atraumatic, no step-offs or deformities Eyes: Pupils equal, round and reactive to light.? ENT: Pharynx normal.? Neck: Normal inspection.? Neck supple.? CVS: Normal heart rate and rhythm.? Pulses normal.? Respiratory: No respiratory distress.? Breath sounds normal.? Abdomen: Soft and nontender.? Skin: Skin warm and dry.? Normal skin color.? Normal skin turgor.? Extremities: No lower extremity edema.? No calf ttp. 5/5 strength to bilateral upper and lower extremities Back: No midline tenderness, no C-spine tenderness, full range of motion, no CVA tenderness bilaterally Neuro: Oriented X 3.? No motor deficit.? No sensory deficit. CN 2-12 intact Vital Signs: Vital Signs - 24 hr 02/11/25 08:59 Temperature 98 F Pulse Rate 72 Respiratory Rate 18 Blood Pressure 121/68 Pulse Oximetry 98 BMI result Body Mass Index 22.5 vss Medical Decision Making Medical Decision Making MDM Narrative: 34-year-old male presents requesting his methadone dose today is scheduled to establish care tomorrow at methadone clinic. Also requesting a refill on Lyrica 300 mg b.i.d. is what patient takes. I did look on the HUMAN RELATIONS PROFESSOR and patient in fact does take 300 mg of Lyrica. Will refill with a short supply at this time Physical exam benign Will give his methadone dose and refill his Lyrica. Differential Diagnosis Differential Diagnoses: The differential diagnosis associated with the presentation includes (Opiate use disorder, substance use disorder, regional pain syndrome) Admission/Observation Consideration of admission/observation: Escalation of care including admission/observation considered (No indication) Independent Historian Clinical information obtained from an independent historian. History obtained from or confirmed by: Parent External Record Review External record reviewed: Inpatient record, Office record, Outpatient record, Prior outpatient labs, Prior outpatient radiology, Primary care record, Outside ED record and Other Prescription Management I considered prescription management with: Other (Methadone, Lyrica) Chronic Conditions Patient?s care impacted by: Other (Alcohol and opiate use disorder) Social Determinants Patient?s care significantly limited by Social Determinants of Health including: Inadequate housing, Low income, Alcoholism and drug addiction in family, Problems related to primary support group, Unemployment, Problems related to employment and Other Social Determinant of Health Discharge Plan Discharge Clinical Impression: Opioid use disorder, Medication refill Patient Disposition: Home, Self-Care Instructions: Opioid Use Disorder (ED) Additional Instructions: Take your medications as prescribed. If you were prescribed antibiotics today, it is important that you take your medication to their entirety, do not skip any doses, do not finish them early. Follow-up with your primary care provider this week. Return to the emergency department with new or worsening symptoms. Such as fevers, chills, chest pain, shortness of breath, nausea, vomiting, dizziness, headache, vision changes, lethargy In case of emergency call 911 Please follow-up with your primary care provider as well as your methadone clinic. You were given 70 mg of methadone today. Prescriptions: New pregabalin [Lyrica] 300 mg capsule 300 mg PO BID Qty: 14 0RF No Action pregabalin 300 mg capsule 300 mg PO BID quetiapine 50 mg tablet 50 mg PO BEDTIME methadone [Methadone Intensol] 10 mg/mL Concentrate 70 mg PO DAILY Referrals: Poonam Ordonez FNP-BC [Primary Care Provider, Family Practice] Print Language: Mauritanian
[2025-02-11 09:25] VITALS: BP 121/68; PULSE 72; RESP 18; TEMP 36.6; O2SAT 98
--- NOTE | 2025-02-11 09:29 | HE.PHANOTE ---
Re Methadone Pt received last dose here on 02/09/25, got 70mg
[2025-02-11] MEDS: methADONE HCl 20 MG/2 ML ORAL.CONC 70 MG PO (09:35)
== END 2025-02-11 09:40 | disposition home or self-care (01) ==
PROVIDERS: Emergency Provider Emergency Medicine; PCP Nurse Practitioner Family
DX: F11.10 Opioid abuse, uncomplicated (principal); Z76.0 Encounter for issue of repeat prescription; F17.210 Nicotine dependence, cigarettes, uncomplicated; Z91.148 Patient's other noncompliance with medication regimen for other reason; Z79.899 Other long term (current) drug therapy
CPT/HCPCS: 99282; 99283

== ENCOUNTER 2025-02-15 03:46 | Inpatient (IN) | payer MEDICAID, SELFPAY ==
[2025-02-15] VITALS (8 sets, daily range): BP systolic 112–135; BP diastolic 48–85; PULSE 59–88; RESP 16–18; TEMP 36.4–36.6; O2SAT 94–98; BMI 22.2
--- NOTE | 2025-02-15 04:01 | PC.NURSE ---
Assumed care of pt, presents with etoh and methadone withdrawal, pt last dose was 2 days ago, pt was in intermediate and missed dose, aaox4,
--- NOTE | 2025-02-15 04:07 | ECG_ITS ---
Test Reason : Alcohol withdrawal Blood Pressure : */* mmHG Vent. Rate : 73 BPM Atrial Rate : 73 BPM P-R Int : 126 ms QRS Dur : 92 ms QT Int : 394 ms P-R-T Axes : 65 95 5 degrees QTcB Int : 434 ms Poor data quality, interpretation may be adversely affected Normal sinus rhythm Rightward axis Borderline ECG When compared with ECG of 31-Aug-2010 01:42, No significant changes seen Referred By: Rosendo Mckeon Electronically Signed By: ANNI SANTANA
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
[2025-02-15] MEDS: Lactated Ringers 1,000 ML 999 ML IV (04:26)
[2025-02-15 04:44] LABS: Hematocrit 38.3 % (42.0-52.0); Hemoglobin 13.2 g/dl (14.0-18.0); Imm Gran Abs Auto 0.04 X10*3/uL (0.00-0.03); Imm Gran Pct Auto 0.4 % (0.0-0.4); Lymphocytes Absolute Auto 1.5 X10*3/uL (1.2-4.9); Mean Corpuscular HGB Conc 34.5 g/dl (31.0-36.0); Mean Corpuscular Hemoglobin 32.1 pg (27.0-33.0); Mean Corpuscular Volume 93.2 fL (80.0-98.0); NRBC Abs Auto 0.000 X10*3/uL (0.0-0.012); NRBC Pct Auto 0.0 /100WBC (0.0-0.2); Platelet Count 357 X10*3/uL (160-400); Red Blood Count 4.11 X10*6/uL (4.60-5.80); White Blood Count 10.9 X10*3/uL (4.8-10.8)
[2025-02-15 04:45] LABS: MANUAL DIFF FLAG NO
[2025-02-15] MEDS: methADONE HCl 20 MG/2 ML ORAL.CONC 30 MG PO ×2 (04:47→11:52)
[2025-02-15 05:04] LABS: Alanine Aminotransferase 33 U/L (0-40); Albumin Level 3.9 g/dL (3.5-5.0); Alkaline Phosphatase 67 U/L (39-117); Anion Gap 13 (12-20); Aspartate Amino Transferase 34 U/L (5-37); Blood Urea Nitrogen 18 mg/dL (9-16); Calcium 8.9 mg/dL (8.4-10.2); Carbon Dioxide 27 mmol/L (22-29); Chloride 105 mmol/L (96-108); Creatinine Clr Calc Pharmacy 161.7; Estimated Glomerular Filt Rate > 60; Lipase 9 U/L (8-78); Potassium 3.7 mmol/L (3.3-5.1); Sodium 141 mmol/L (135-145); Total Protein 7.7 g/dL (6.5-8.0)
[2025-02-15 05:17] LABS: Troponin-I High Sensitivity < 2.7 ng/L (<3.5-35.0)
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
[2025-02-15] MEDS: PHENobarbitaL sodium 130 MG/ML IM ONCE 328 MG IM (06:25)
[2025-02-15] MEDS: Thiamine HCL 100 MG in 0.9 % Sodium Chloride 100 ML 202 MG IV (06:57)
--- NOTE | 2025-02-15 07:10 | PHA.MEDREC ---
Pharmacy Consult ? Medication Reconciliation Pharmacy has completed the medication reconciliation. PT left AMA on 02/11, was sent home with pregabalin and quetiepine, matches pharmacy claims.
[2025-02-15] MEDS: 0.9 % Sodium Chloride Flush 3 ML SYRINGE IVFLUSH (08:10)
--- NOTE | 2025-02-15 08:18 | PC.NURSE ---
Care of Pt assumed at change of shift. Pt rests comfortably with eyes closed. VSS and Pt sating consistently in the high 90's. Pharmacy is requesting Methadone verification form for ordered 80mg Methadone. No form located in Pts chart at this time. 80mg Methadone ordered by admitting MD-- it is unclear how this dosing information was obtained. Will call Pts Methadone clinic for follow up verification. This RN attempts AM med pass and verify Pts methadone clinic information however Pt unable to remain awake. Will re-attempt to medicate Pt and obtain methadone clinic information in approx. 30-60 mins.
[2025-02-15 08:44] LABS: Cannabinoid Screen Urine POSITIVE (Not Detect)
--- NOTE | 2025-02-15 09:00 | PC.NURSE ---
Review of Pts chart shows he has received methadone Pt at [facility]. Call placed to [facility] @ [phone] in an attempt to verify dosing. Spoke with Brenna ALVARADO who confirms the following: Pt was last dosed in the clinic on 02/04/25 @0712 with 70mg liquid Methadone. Information repeated by Brenna to ensure accuracy. Will need to confirm with Pt that this is his current clinic and last place of dosing when Pt is more alert. Will send Pharmacy Methadone Verification Form once Pt provides confirmation re: current clinic.
--- NOTE | 2025-02-15 09:33 | PC.NURSE ---
Second attempt made to medicate Pt and obtain Methadone Clinic information. Pt is responsive to light touch and verbal stimuli but falls immediately falls back asleep. Will continue to re-attempt.
[2025-02-15] MEDS: PHENobarbitaL sodium 130 MG/ML VIAL IM Q3Hx2 246 MG IM ×2 (09:54→11:55)
--- NOTE | 2025-02-15 10:08 | PC.NURSE ---
This RN met with Marisol Tristan NP from Addiction Services. She reports Pt is not currently affiliated with a clinic for Methadone and therefore dosing verification is not indicated.. Marisol reports she will be placing orders for Methadone. Dr. Gautam at bedside with Pt. Pt able to remain alert and interacts with questions at this time. Pt medicated per JUL. VSS and Pt is resting without distress. Pharmacy staff Vy made aware of DIANDRA Tristan's report/plan. Awaiting methadone order placement to medicate Pt.
--- NOTE | 2025-02-15 10:11 | HO.ADDICT_ITS ---
History of Present Illness Date of Service: 02/15/25 Chief Complaint: Alcohol withdrawal syndrome Reason for Consult: DOT Sources of Information: chart reviewed HPI Narrative: Information obtained via chart review as patient was unable to remain awake for interview. Patient is a 34 year old male with history of AUD and OUD, presented to [facility] after being police custody for 2 days, reporting acute alcohol withdrawal sx. In ED CIWA score 18, and phenobarbital protocol initiated Patient reported to ED provider drinking 1-2 sleeves of Fireball whiskey daily. Patient also reporting opiate withdrawal, stated he had not had methadone in 2 days, and that dose was 80mg. Patient administered methadone 30mg at that time, pending verification of dose prior to administering the remainder. RN unable to verify dose due patient level of sedation. Patient appearing very comfortable, sleeping. VSS. No diaphoresis or restlessness noted. Patient briefly admitted to [facility] and d/c on 02/09. At that time, methadone 70mg administered. Patient self directed discharge at that time, declined referral to OTP. Labs reviewed Medical Evaluation Reviewed: Yes Review of Systems Review of Systems Yes Unobtainable due to mental status Diagnostics Vital Signs (24Hr): Vital Signs - 24 hr 02/15/25 03:48 02/15/25 04:35 02/15/25 06:10 Temperature 97.6 F 97.8 F Pulse Rate 88 78 70 Respiratory Rate 18 18 18 Blood Pressure 135/85 132/77 132/70 Pulse Oximetry 94 96 96 Oxygen Delivery Method Room Air Room Air Room Air 02/15/25 07:01 02/15/25 08:23 02/15/25 10:05 Temperature Pulse Rate 68 74 61 Respiratory Rate 18 16 16 Blood Pressure 115/74 112/69 116/85 Pulse Oximetry 97 98 98 Oxygen Delivery Method Room Air Room Air Room Air BMI result Body Mass Index 22.2 Labs 02/15/25 04:27 02/15/25 04:27 Labs: Laboratory Results - last 48 hr 02/15/25 02/15/25 04:27 08:26 WBC 10.9 H RBC 4.11 L Hgb 13.2 L Hct 38.3 L MCV 93.2 MCH 32.1 MCHC 34.5 RDW 13.5 Plt Count 357 MPV 10.4 Immature Gran % (Auto) 0.4 Neut % (Auto) 78.2 H Lymph % (Auto) 13.6 L Mobile % (Auto) 7.1 Eos % (Auto) 0.2 Baso % (Auto) 0.5 Lymph # (Auto) 1.5 Mobile # (Auto) 0.8 Eos # (Auto) 0.0 Baso # (Auto) 0.1 Abs Immat Gran (auto) 0.04 H Absolute Neuts (auto) 8.6 H Absolute Nucleated RBC 0.000 Nucleated RBC % (auto) 0.0 Sodium 141 Potassium 3.7 Chloride 105 Carbon Dioxide 27 Anion Gap 13 BUN 18 H Creatinine 0.70 Estim Creat Clear Calc 161.7 Estimated GFR > 60 Random Glucose 110 Calcium 8.9 Total Bilirubin 0.5 Direct Bilirubin 0.2 AST 34 ALT 33 Alkaline Phosphatase 67 Troponin I High Sens < 2.7 Total Protein 7.7 Albumin 3.9 Lipase 9 Urine Opiates Screen POSITIVE H Ur Buprenorphine Scrn Not Detected Ur Oxycodone Screen Not Detected Urine Methadone Screen Not Detected Urine Fentanyl Screen POSITIVE H Ur Barbiturates Screen POSITIVE H Ur Phencyclidine Scrn Not Detected Ur Amphetamines Screen Not Detected U Benzodiazepines Scrn Not Detected Urine Cocaine Screen POSITIVE H U Marijuana (THC) Screen POSITIVE H Ethyl Alcohol < 10 Mental Status Exam Mental Status Exam Level of Consciousness: Drowsy Medications Medications Current Medications Acetaminophen (Acetaminophen 325 Mg Tablet) 650 mg PO Q6H PRN PRN Reason: Pain, Mild 1-3,fever,headache Last Admin: 02/15/25 09:57 Dose: 650 mg Calcium Carbonate (Calcium Carbonate 750 Mg Tab.Chew) 750 mg PO Q4H PRN PRN Reason: Heartburn Enoxaparin Sodium (Enoxaparin Sodium 40 Mg/0.4 Ml Syringe) 40 mg SUBCUT Q24H [facility] Last Admin: 02/15/25 09:58 Dose: Not Given Folic Acid (Folic Acid 1 Mg Tablet) 1 mg PO DAILY [facility] Last Admin: 02/15/25 09:53 Dose: 1 mg Lorazepam (Lorazepam 1 Mg Tablet) 1 mg PO Q6H PRN PRN Reason: Opiate Withdrawal Magnesium Hydroxide (Milk Of Magnesia 30 Ml Oral.Susp) 30 ml PO DAILY PRN PRN Reason: Constipation Melatonin (Melatonin 3 Mg Tablet) 6 mg PO BEDTIME PRN PRN Reason: Insomnia Methadone HCl (Methadone Hcl 20 Mg/2 Ml Oral.Conc) 30 mg PO ONCE ONE Stop: 02/15/25 11:01 Multivitamins/Vitamin C (Multivitamin Tablet) 1 tab PO DAILY [facility] Last Admin: 02/15/25 09:53 Dose: 1 tab Ondansetron HCl (Ondansetron Hcl 4 Mg/2 Ml Vial) 4 mg IVPUSH Q4H PRN PRN Reason: Nausea and Vomiting Pantoprazole Sodium (Pantoprazole Sodium 40 Mg/10 Ml Vial) 40 mg IVPUSH BID@0630,1630 [facility] Last Admin: 02/15/25 10:05 Dose: 40 mg Pharmacy Consult (Consult Rx Etoh Phenob Im/Po) 1 each MISCELLANE ONCE PRN; Protocol PRN Reason: Consult order Phenobarbital (Phenobarbital 30 Mg Tablet) 60 mg PO BID [facility]; Protocol Stop: 02/17/25 09:01 Phenobarbital (Phenobarbital 30 Mg Tablet) 30 mg PO BID [facility]; Protocol Stop: 02/19/25 09:01 Phenobarbital (Phenobarbital 30 Mg Tablet) 30 mg PO BEDTIME [facility]; Protocol Stop: 02/20/25 21:01 Phenobarbital Sodium (Phenobarbital Sodium 130 Mg/Ml Vial Im Q3hx2) 246 mg IM Q3H [facility]; Protocol Stop: 02/15/25 12:01 Last Admin: 02/15/25 09:54 Dose: 246 mg Pregabalin (Pregabalin 100 Mg Capsule) 300 mg PO BID [facility] Pregabalin (Pregabalin 150 Mg Capsule) 300 mg PO BID [facility] Prochlorperazine Edisylate (Prochlorperazine Edisylate 10 Mg/2 Ml Vial) 5 mg IVPUSH Q4H PRN PRN Reason: Nausea and Vomiting Quetiapine Fumarate (Quetiapine Fumarate 50 Mg Tablet) 50 mg PO BEDTIME [facility] Quetiapine Fumarate (Quetiapine Fumarate 50 Mg Tablet) 50 mg PO BEDTIME [facility] Sodium Chloride (0.9 % Sodium Chloride Flush 3 Ml Syringe) 3 ml IVFLUSH QSHIFT [facility] Last Admin: 02/15/25 08:10 Dose: 3 ml Thiamine HCl (Thiamine Hcl 100 Mg Tablet) 100 mg PO DAILY [facility] Last Admin: 02/15/25 09:53 Dose: 100 mg Allergies Allergies Allergy/AdvReac Type Severity Reaction Status Date / Time No Known Allergies Allergy Mild NOT Verified 02/15/25 03:53 APPLICABLE Assessment & Plan Assessment & Plan (1) Opioid use disorder: Status: Acute Code(s): F11.90 - Opioid use, unspecified, uncomplicated Assessment and Plan: * methadone 30mg ordered for when patient wakes --total of 60mg today once that dose is administered * will titrate dose as appropriate * drop hammer operator helper to follow up with patient regarding referral to [facility] (2) Alcohol withdrawal: Qualifiers: Complication of substance-induced condition: uncomplicated Qualified Code(s): F10.930 - Alcohol use, unspecified with withdrawal, uncomplicated Status: Acute Code(s): F10.939 - Alcohol use, unspecified with withdrawal, unspecified Assessment and Plan: * phenobarbital taper in place -withdrawal sx well managed * continue thiamine and folic acid Total time managing care of this patient today _20___ minutes. PMFSH Past Medical History Medical History Opiate abuse, continuous Alcohol withdrawal seizure Endocarditis Surgical History Surgical History History of splenectomy Social History Social History Household Members: Unknown / Unable to assess Housing: Homeless Do you presently have visiting nurse or other home services: No Alcohol intake: current Alcohol intake frequency: 3 or more drinks per day Alcohol type: hard liquor Comment: seizure precautions in place Patient Tobacco Use Status: Current everyday Tobacco user Tobacco use type: Cigarette Cigarette Packs Per Day: 1 Cigarettes Per Day: 20.0 e-Cigarette/Vaping Use: Currently Using Second Hand Smoke Exposure: No Substance Use Type: Heroin Advance Directives: No service: No
--- NOTE | 2025-02-15 11:12 | HO.NURTONUR ---
34 year old male admitted for ETOH withdrawal and polysubstance dependence. Last use of substances on 02/14/25. Pt rests comfortably in ED. VSS and Pt able to maintain O2 sats in upper 90's without difficulty. U/S guided 20g to LUE placed by overnight RN--IV is intact and patent. Phenobarbital protocol initiated in ED with good result. Pt as not been seen at Methadone clinic since 02/04/25. Addiction Medicine evals Pt and plans to follow up Pt during admission. Attending at bedside this AM for eval. Pt is currently resting quietly with eyes closed. VSS Pt is awaiting inpatient bed assignment.
--- NOTE | 2025-02-15 14:34 | PC.NURSE ---
Pt wakes briefly and eats a portion of lunch tray. Pt requests Nicotine Lozenge---attending notified and nicotine gum ordered. Upon return o Pts room with nicotine gum, Pt noted to be sleeping. Will dispense when Pt awake.
--- NOTE | 2025-02-15 15:57 | PC.NURSE ---
Pt calls this RN to the bedside Pt asks this RN to remove his IV as he wishes to leave AMA. Pt advises Pt she will contact attending and remove IV. Attending Gautam advised who reports he will come down and speak to Pt. Pt noted to be pacing about in his room. Pt then begins to exit the ED. Security notified Pt shows this RN his LFA showing he has ripped out his IV. IV also noted in the trash in the room. Pt reports he is unwilling to stay to speak with MD and will not wait for his paperwork. Pt leaves ED AMA without d/c paperwork.
--- NOTE | 2025-02-15 16:18 | PM.EVENT ---
Event Note Date of Service: 02/15/25 Event Note: Discharge summary: Date of service and discharge:02/15/25 Discharge diagnosis: Alcohol withdrawal Patient admitted for alcohol withdrawal- started on phenobarb protocol, also consulted addiction Team patient is urine drug screen positive for fentanyl, cocaine and marijuana. Subsequently patient just woke up and left, did not wait to stay to talk to the doctor, did not give any particular reason of leaving and just left. Time Spent With Patient Time: Total time managing care of this patient today ____ minutes.
== END 2025-02-15 16:36 | disposition left against medical advice (07) | DRG 770 ==
LOC: HO.ED 04:27 → HO.EDOVER 06:12
PROVIDERS: Admitting Provider Internal Medicine; Emergency Provider Emergency Medicine; PCP Internal Medicine; Visit Provider Internal Medicine
DX: F10.939 Alcohol use, unspecified with withdrawal, unspecified (principal); F11.20 Opioid dependence, uncomplicated; F17.210 Nicotine dependence, cigarettes, uncomplicated; F19.20 Other psychoactive substance dependence, uncomplicated; G62.9 Polyneuropathy, unspecified; Z71.6 Tobacco abuse counseling; Z90.81 Acquired absence of spleen; Z79.899 Other long term (current) drug therapy
CPT/HCPCS: 36415; 80048; 80076; 80307; 83690; 84484; 85025; 93005; 99285; J2470; J2560; J3411; J7120

== ENCOUNTER → 2025-02-15 04:07 | Outpatient (BNV) | payer MEDICAID, SELFPAY | PROVIDERS: Admitting Provider Internal Medicine; Emergency Provider Emergency Medicine; PCP Internal Medicine; Visit Provider Internal Medicine | DX: F10.239 Alcohol dependence with withdrawal, unspecified (principal) | CPT/HCPCS: 93010 ==

== ENCOUNTER → 2025-02-15 06:09 | Outpatient (BNV) | payer OTHER, SELFPAY | PROVIDERS: Admitting Provider Internal Medicine; Emergency Provider Emergency Medicine; PCP Internal Medicine; Visit Provider Nurse Practitioner Psychiatric/Mental Health | DX: F10.930 Alcohol use, unspecified with withdrawal, uncomplicated (principal); F11.90 Opioid use, unspecified, uncomplicated | CPT/HCPCS: 99232 ==

== ENCOUNTER → 2025-02-15 06:09 | Outpatient (BNV) | payer MEDICAID, SELFPAY | PROVIDERS: Admitting Provider Internal Medicine; Emergency Provider Emergency Medicine; PCP Internal Medicine; Visit Provider Internal Medicine | DX: F10.930 Alcohol use, unspecified with withdrawal, uncomplicated (principal); F19.20 Other psychoactive substance dependence, uncomplicated | CPT/HCPCS: 99223; 99499 ==

== ENCOUNTER 2025-02-16 18:09 | Emergency (ER) | payer MEDICAID, SELFPAY ==
[2025-02-16 18:19] VITALS: BP 154/96; BP 92/46; PULSE 62; PULSE 74; RESP 15; TEMP 36.4; O2SAT 97; O2SAT 98; BMI 22.8
--- NOTE | 2025-02-16 18:55 | ED.OVERDOSE ---
HPI - Overdose General Chief Complaint: Overdose Stated Complaint: Ams, used several bags of heroine Time Seen by Provider: 02/16/25 18:31 History of Present Illness HPI Narrative: Patient is a 34-year-old male with a history of polysubstance abuse. On methadone. Patient was lying in the grass in the road when bystander noted patient to be off. EMS was contacted patient was sent to the ED. he denies any suicidal homicidal ideation. Does not want detox. He admits to using heroin over 5-6 hours ago. He did it for recreational reasons. Related Data Home Medications ?Medication ?Instructions ?Recorded ?Confirmed quetiapine 50 mg tablet 50 mg PO BEDTIME 12/11/24 02/15/25 methadone 10 mg/mL oral 70 mg PO DAILY 02/08/25 02/11/25 concentrate (Methadone Intensol) Previous Rx's ?Medication ?Instructions ?Recorded pregabalin 300 mg capsule (Lyrica) 300 mg PO BID #14 caps 02/11/25 Allergies Allergy/AdvReac Type Severity Reaction Status Date / Time No Known Allergies Allergy Mild NOT Verified 02/16/25 18:21 APPLICABLE Review of Systems Review of Systems: Positive polysubstance abuse Yes all other systems are reviewed and are negative PMFSH Past Medical History Attestation statement: The following information was validated with the patient. Medical History Opiate abuse, continuous Alcohol withdrawal seizure Endocarditis Surgical History History of splenectomy Social History Social History Household Members: Unknown / Unable to assess Housing: Homeless Do you presently have visiting nurse or other home services: No Alcohol intake: current Alcohol intake frequency: 3 or more drinks per day Alcohol type: hard liquor Comment: seizure precautions in place Patient Tobacco Use Status: Current everyday Tobacco user Tobacco use type: Cigarette Cigarette Packs Per Day: 1 Cigarettes Per Day: 20.0 e-Cigarette/Vaping Use: Currently Using Second Hand Smoke Exposure: No Substance Use Type: Heroin Do you have a plan to hurt others: No Plan service: No Physical Exam Exam: Exam: Appearance: Alert. Oriented X3. No acute distress. Eyes: Pupils equal, round and reactive to light. ENT: Pharynx normal. Neck: Normal inspection. Neck supple. No lymph nodes noted. No crepitus CVS: Normal heart rate and rhythm. Pulses normal. Normal S1 and S2 Respiratory: No respiratory distress. Breath sounds normal. No Wheezing. No rales Abdomen: Soft and nontender. No rigidity. No distention. good BS x4 Skin: Skin warm and dry. Normal skin color. Normal skin turgor. Extremities: No lower extremity edema. Neurovascular intact to all extremities. No Lacerations. No Rash Neuro: Oriented X 3. No motor deficit. No sensory deficit. Moving all extermities. No slurred speech Vital Signs: Vital Signs: Last Vital Signs Temp 97.6 F 02/16/25 18:19 Pulse 74 02/16/25 18:19 Resp 15 02/16/25 18:19 BP 92/46 L 02/16/25 18:19 Pulse Ox 98 02/16/25 18:19 O2 Del Method Room Air 02/16/25 18:19 BMI result Body Mass Index 22.8 Medical Decision Making Medical Decision Making [facility] Narrative: Fair appearing not acute distress. Admits to using recreational drugs. Stated that he last use was 01:00 this afternoon. No suicidal homicidal ideation. We observed the patient walking but stumbling somewhat. Ask patient to stay. Patient is awake alert answering question oriented x3. Currently in stable condition. Patient was offered Narcan but refused. Walking in the street 9 awake alert oriented. Eloped from the ER. Did not want to stay. Understood the risks including use of narcotics and other recreational drugs. Differential Diagnosis Differential Diagnoses: The differential diagnosis associated with the presentation includes Recreational drug use Admission/Observation Consideration of admission/observation: Escalation of care including admission/observation considered Lab Data [facility] Lab Attestation statement: I reviewed the patient's lab results. Social Determinants Patient?s care significantly limited by Social Determinants of Health including: Alcoholism and drug addiction in family and Problems related to primary support group Discharge Plan Discharge Clinical Impression: Opioid use disorder Patient Disposition: Elopement Instructions: Narcotic Use Disorder (ED) Additional Instructions: Opiate use disorder You were seen in our Emergency Department today for treatment of opiate use disorder. You may have been dosed with medication for opiate use disorder (MOUD) in the form of suboxone or methadone. You may experience feeling some withdrawal symptoms and this is normal. The? dose in the Emergency Department is a starting dose and meant to be titrated up once you follow up with a clinic. Please do not feel discouraged, it is a process. The nurse has reviewed with you where to follow up and what information to bring with you, to continue treatment. You also may have been given naloxone (narcan) to take home with you. This medication is used to potentially treat opiate overdose. If you decide you want to stop or cut down on how much you?re using, you can call or walk into our outpatient Addiction Treatment office: [facility] (M-F 9am-5p) [address], [address] [phone] You may have been provided with safer injection?items, please take time to take care of YOU and your health. Use new supplies whenever possible to lessen the chances of infections and other illnesses.? ?If you need more supplies, please go [facility],? [address] [place] [address] OR you can call or text to coordinate delivery of safer supplies. You were also provided a list of several treatment providers in the area.? If you experience any worsening symptoms you cannot control please return to the ED or call 911. Please follow up at your next appointment. Things to look out for are fevers, chest pain, shortness of breath, severe pain, dizziness, fainting or any other concerns. Prescriptions: No Action quetiapine 50 mg tablet 50 mg PO BEDTIME methadone [Methadone Intensol] 10 mg/mL Concentrate 70 mg PO DAILY pregabalin [Lyrica] 300 mg capsule 300 mg PO BID Qty: 14 0RF Referrals: [facility] [Provider Group] - 02/19/25 Print Language: Maltese
--- NOTE | 2025-02-16 19:04 | PC.NURSE ---
pt refusing to stay for medical evaluation/declining detox services. provider bedside to assess. provider ok w/ pt leaving at this time. vss and up to date. pt continues to remain w/ patent airway on RA - no apparent respiratory distress. no sob/wob noted. respirations even/unlabored. pt able to walk independently w/ a strong/steady gait. refusing take home narcan upon d/c.
== END 2025-02-16 19:30 | disposition left against medical advice (07) ==
LOC: HO.ED 19:14
PROVIDERS: Emergency Provider Emergency Medicine Emergency Medical Services
DX: T40.1X1A Poisoning by heroin, accidental (unintentional), initial encounter (principal); T40.1X3A Poisoning by heroin, assault, initial encounter; Y92.9 Unspecified place or not applicable; R40.4 Transient alteration of awareness; Z79.899 Other long term (current) drug therapy; F17.210 Nicotine dependence, cigarettes, uncomplicated; Z71.51 Drug abuse counseling and surveillance of drug abuser
CPT/HCPCS: 99284

== ENCOUNTER 2025-03-02 04:45 | Emergency (ER) | payer MEDICAID, SELFPAY ==
[2025-03-02 04:46] VITALS: BP 147/100; PULSE 73; RESP 16; TEMP 36.1; O2SAT 96; BMI 23.1
--- NOTE | 2025-03-02 05:19 | ED_ITS ---
HPI - Alcohol General Chief Complaint: ETOH/Substance Use Stated Complaint: looking for detox Time Seen by Provider: 03/02/25 05:13 Source: patient Mode of arrival: ambulatory Limitations: no limitations History of Present Illness ED Provider: Dr. Karuna Myrick HPI narrative: Patient comes to the emergency room requesting help to stop drinking and with narcotic use. Patient states that it has been over 72 hours since the last dose of methadone. Patient states that he just has not gone to the clinic. Patient reports that his last drink was yesterday. Patient states that he does have history of alcohol withdrawal seizures. Patient states that at this time he just has generalized malaise. Denies suicidal ideation. Patient reports feeling depressed and also requesting help with treatment for depression. Related Data Home Medications ?Medication ?Instructions ?Recorded ?Confirmed quetiapine 50 mg tablet 50 mg PO BEDTIME 12/11/24 methadone 10 mg/mL oral 70 mg PO DAILY 02/08/2501/16 concentrate (Methadone Intensol) Previous Rx's ?Medication ?Instructions ?Recorded pregabalin 300 mg capsule (Lyrica) 300 mg PO BID #14 c aps 02/11/25 Allergies Allergy/AdvReac Type Severity Reaction Status Date / Time No Known Allergies Allergy Mild NOT Verified 03/02/25 04:48 APPLICABLE Review of Systems 2 Review of Systems: Constitutional : No Weight loss, No Fever, No Chills, No Night Sweats, No Fatigue, No Malaise ENT/Mouth : No Hearing loss, No Ear Pain, No Nasal Congestion, No Sinus Pain, No Hoarseness, No sore throat, No Rhinorrhea, No Swallowing Difficulty Eyes: No Eye Pain, No Swelling, No Redness, No Foreign Body, No Discharge, No Vision Changes Cardiovascular : No Chest Pain, No SOB, No Dyspnea on Exertion, No Orthopnea, No Edema, No Palpitations Respiratory : No Cough, No Sputum, No Wheezing, No Smoke Exposure, No Dyspnea Gastrointestinal : No Nausea, No Vomiting, No Diarrhea, No Constipation, No abdominal Pain, No Hematochezia, No Melena Genitourinary : no irregular bleeding, No Dysuria, No Urinary Frequency, No Hematuria, No Urinary Incontinence, No Urgency, No Flank Pain, No Urinary Flow Changes, No Hesitancy Musculoskeletal : No joint pain, No Myalgias, No Joint Swelling Skin : No Skin Lesions, No rash Neuro : No Weakness, No Numbness, No Paresthesias, No Loss of Consciousness, No Dizziness, No Headache Psych : No Anxiety/Panic, complaining of depression, alcohol withdrawal, narcotic withdrawal, requesting help for detox Heme/Lymph: No Bruising, No Bleeding,No Lymphadenopathy Endocrine : No Polyuria, No Polydipsia, No Temperature Intolerance PMF Past Medical History Medical History Opiate abuse, continuous Alcohol withdrawal seizure Endocarditis Surgical History History of splenectomy Social History Social History Household Members: Unknown / Unable to assess Housing: Homeless Do you presently have visiting nurse or other home services: No Alcohol intake: current Alcohol intake frequency: 3 or more drinks per day Alcohol type: hard liquor Comment: seizure precautions in place Patient Tobacco Use Status: Current everyday Tobacco user Tobacco use type: Cigarette Cigarette Packs Per Day: 1 Cigarettes Per Day: 20.0 e-Cigarette/Vaping Use: Currently Using Second Hand Smoke Exposure: No Use of substances other than those prescribed or required for medical reasons: Yes Substance Use Type: Heroin Advance Directives: No service: No Physical Exam ED Exam Exam: Appearance: Alert. Oriented X3. No acute distress. Eyes: Pupils equal, round and reactive to light. ENT: Pharynx normal. Neck: Normal inspection. Neck supple. No lymph nodes noted. No crepitus CVS: Normal heart rate and rhythm. Pulses normal. Normal S1 and S2 Respiratory: No respiratory distress. Breath sounds normal. No Wheezing. No rales Abdomen: Soft and nontender. No rigidity. No distention. Skin: Skin warm and dry. Normal skin color. Normal skin turgor. Extremities: No lower extremity edema. No Lacerations. No Rash Neuro: Oriented X 3. No motor deficit. No sensory deficit. Moving all extremities. No slurred speech. CN 2 through 12 grossly intact Psych: calm, cooperative, normal affect Vital Signs: Vital Signs - 24 hr 03/02/25 04:46 03/02/25 08:26 Temperature 96.9 F 98.0 F Pulse Rate 73 59 Respiratory Rate 16 12 Blood Pressure 147/100 H 127/77 Pulse Oximetry 96 94 Oxygen Delivery Method Room Air Room Air BMI result Body Mass Index 23.1 Course Course Course Narrative: All of patient's labs pending Care team consult pain Patient is not suicidal or homicidal, section 12 not indicated Patient was given methadone 30 mg p.o., it has been over 72 hours since patient had his last dose of methadone. Also, given a dose of p.o. Ativan to help with the alcohol withdrawal symptoms. However, patient does not seem to be actively withdrawing of alcohol. Physician observation started at 05:27 Reevaluation(s) Reevaluation #1: Time: 06:04 Date: 03/02/25 Provider: Aditi Villegas, DO Patient in physician observation for psychiatric evaluation.? No acute events reported overnight. No current complaints. VS stable.? Patient is pending recovery team. Will continue to monitor. Reevaluation #2: Time: 15:26 Date: 03/02/25 Provider: Aditi Villegas DO Physician observation ended at 326pm. He declines detox and wants to leave. stable for DC Medical Decision Making Lab Data 03/02/25 05:50 03/02/25 05:50 Labs: Lab Results 03/02/25 03/02/25 Range/Units 05:50 06:14 WBC 7.0 (4.8-10.8) X10*3/uL RBC 4.58 L (4.60-5.80) X10*6/uL Hgb 14.3 (14.0-18.0) g/dl Hct 43.0 (42.0-52.0) % MCV 93.9 (80.0-98.0) fL MCH 31.2 (27.0-33.0) pg MCHC 33.3 (31.0-36.0) g/dl RDW 12.9 (11.0-16.0) % Plt Count 308 (160-400) X10*3/uL MPV 10.1 (9.4-12.4) fL Immature Gran % (Auto) 0.3 (0.0-0.4) % Neut % (Auto) 53.7 (45-73) % Lymph % (Auto) 32.1 (20-40) % [place] % (Auto) 10.2 (2-11) % Eos % (Auto) 2.6 (0-4) % Baso % (Auto) 1.1 (0-2) % Lymph # (Auto) 2.2 (1.2-4.9) X10*3/uL [place] # (Auto) 0.7 (0.1-1.2) X10*3/uL Eos # (Auto) 0.2 (0.0-0.4) X10*3/uL Baso # (Auto) 0.1 (0.0-0.2) X10*3/uL Abs Immat Gran (auto) 0.02 (0.00-0.03) X10*3/uL Absolute Neuts (auto) 3.8 (2.0-8.3) x10*3/uL Absolute Nucleated RBC 0.000 (0.0-0.012) X10*3/uL Nucleated RBC % (auto) 0.0 (0.0-0.2) /100WBC Sodium 141 (135-145) mmol/L Potassium 3.9 (3.3-5.1) mmol/L Chloride 103 (96-108) mmol/L Carbon Dioxide 29 (22-29) mmol/L Anion Gap 13 (12-20) BUN 20 H (9-16) mg/dL Creatinine 0.76 (0.5-1.4) mg/dL Estim Creat Clear Calc 155.1 Estimated GFR > 60 Random Glucose 89 (60-115) mg/dL Calcium 9.1 (8.4-10.2) mg/dL Total Bilirubin 0.5 (0.0-1.0) mg/dL Direct Bilirubin 0.2 (0.0-0.5) mg/dL AST 99 H (5-37) U/L ALT 132 H (0-40) U/L Alkaline Phosphatase 83 (39-117) U/L Total Protein 8.0 (6.5-8.0) g/dL Albumin 4.1 (3.5-5.0) g/dL Urine Opiates Screen POSITIVE H (Not Detect) Ur Buprenorphine Scrn Not Detected (Not Detect) ng/mL Ur Oxycodone Screen Not Detected (Not Detect) ng/mL Urine Methadone Screen Positive H (Not Detect) ng/mL Urine Fentanyl Screen POSITIVE H (Not Detect) Ur Barbiturates Screen POSITIVE H (Not Detect) Ur Phencyclidine Scrn Not Detected (Not Detect) Ur Amphetamines Screen Not Detected (Not Detect) U Benzodiazepines Scrn Not Detected (Not Detect) Urine Cocaine Screen POSITIVE H (Not Detect) U Marijuana (THC) Screen POSITIVE H (Not Detect) Ethyl Alcohol < 10 mg/dL Medications Administered Generic Name Dose Route Start Last Admin Trade Name Freq PRN Reason Stop Dose Admin Lorazepam 2 mg 03/02/25 06:14 03/02/25 14:32 Lorazepam 1 Mg Tablet PO 2 mg Q3H PRN Administration Alcohol Withdrawal Discontinued Medications Generic Name Dose Route Start Last Admin Trade Name Freq PRN Reason Stop Dose Admin Lorazepam 2 mg 03/02/25 05:18 03/02/25 06:09 Lorazepam 1 Mg Tablet PO 03/02/25 05:19 2 mg ONCE ONE Administration Methadone HCl 30 mg 03/02/25 05:18 03/02/25 06:08 Methadone Hcl 20 Mg/2 Ml Oral.Conc PO 03/02/25 05:19 30 mg ONCE ONE Administration Critical Care Time Critical Care Time Critical Care Time: Yes Total Critical Care Time: 35 Attestation: I have personally provided critical care time. Time includes review of lab data, radiology results, discussion with consultants, and monitoring for potential decompensation. Intervention performed as documented. Discharge Plan Discharge Clinical Impression: Opioid use disorder Alcohol dependence Qualifiers: Substance use status: unspecified alcohol-induced disorder Qualified Code(s): F 10.29 - Alcohol dependence with unspecified alcohol-induced disorder Depression Qualifiers: Depression Type: unspecified Qualified Code(s): F32.A - Depression, unspecified Patient Disposition: Home, Self-Care Instructions: Alcohol Use Disorder (ED), Depression (ED), Opioid Use Disorder (ED) Additional Instructions: Alcohol use disorder You were seen in the Emergency Department today for treatment of alcohol use disorder.? You may have been given medications to help with your withdrawal symptoms.? Please do not drink alcohol with them. This is very dangerous and can cause respiratory depression or other adverse reactions depending on the medication. If you would like to cut down or stop your alcohol use please consider calling our outpatient Addiction Treatment office:? [facility] (M-F 9a-5p) [address] [place] [phone] You have also been given a list of treatment providers in the area that can assist as well.? If you experience seizures, vomiting blood, black stools, falls, severe headache, chest pain, fevers, trouble breathing, hallucinations or any other concerns you need to call 911 or seek immediate care. Please stay hydrated. Opiate use disorder You were seen in our Emergency Department today for treatment of opiate use disorder. You may have been dosed with medication for opiate use disorder (MOUD) in the form of suboxone or methadone. You may experience feeling some withdrawal symptoms and this is normal. The? dose in the Emergency Department is a starting dose and meant to be titrated up once you follow up with a clinic. Please do not feel discouraged, it is a process. The nurse has reviewed with you where to follow up and what information to bring with you, to continue treatment. You also may have been given naloxone (narcan) to take home with you. This medication is used to potentially treat opiate overdose. If you decide you want to stop or cut down on how much you?re using, you can call or walk into our outpatient Addiction Treatment office: [facility] (M-F 9am-5p) [address] [place] [address], [address] [phone] You may have been provided with safer injection?items, please take time to take care of YOU and your health. Use new supplies whenever possible to lessen the chances of infections and other illnesses.? ?If you need more supplies, please go [facility],? [address] [place] [address] OR you can call or text to coordinate delivery of safer supplies. You were also provided a list of several treatment providers in the area.? If you experience any worsening symptoms you cannot control please return to the ED or call 911. Please follow up at your next appointment. Things to look out for are fevers, chest pain, shortness of breath, severe pain, dizziness, fainting or any other concerns. Prescriptions: No Action quetiapine 50 mg tablet 50 mg PO BEDTIME methadone [Methadone Intensol] 10 mg/mL Concentrate 70 mg PO DAILY pregabalin [Lyrica] 300 mg capsule 300 mg PO BID Qty: 14 0RF Print Language: Chinese
[2025-03-02 05:54] LABS: Hematocrit 43.0 % (42.0-52.0); Hemoglobin 14.3 g/dl (14.0-18.0); Imm Gran Abs Auto 0.02 X10*3/uL (0.00-0.03); Imm Gran Pct Auto 0.3 % (0.0-0.4); Lymphocytes Absolute Auto 2.2 X10*3/uL (1.2-4.9); MANUAL DIFF FLAG NO; Mean Corpuscular HGB Conc 33.3 g/dl (31.0-36.0); Mean Corpuscular Hemoglobin 31.2 pg (27.0-33.0); Mean Corpuscular Volume 93.9 fL (80.0-98.0); NRBC Abs Auto 0.000 X10*3/uL (0.0-0.012); NRBC Pct Auto 0.0 /100WBC (0.0-0.2); Platelet Count 308 X10*3/uL (160-400); Red Blood Count 4.58 X10*6/uL (4.60-5.80); White Blood Count 7.0 X10*3/uL (4.8-10.8)
--- NOTE | 2025-03-02 06:00 | PC.NURSE ---
Assumed care of pt, presents with depression, stated that he wants to stop drinking and taking narcotics, last drink was yesterday, denies SI/HI, pt was would like to speak to care team, [id number]
[2025-03-02 06:08] LABS: Alanine Aminotransferase 132 U/L (0-40); Albumin Level 4.1 g/dL (3.5-5.0); Alkaline Phosphatase 83 U/L (39-117); Anion Gap 13 (12-20); Aspartate Amino Transferase 99 U/L (5-37); Blood Urea Nitrogen 20 mg/dL (9-16); Calcium 9.1 mg/dL (8.4-10.2); Carbon Dioxide 29 mmol/L (22-29); Chloride 103 mmol/L (96-108); Creatinine Clr Calc Pharmacy 155.1; Estimated Glomerular Filt Rate > 60; Potassium 3.9 mmol/L (3.3-5.1); Sodium 141 mmol/L (135-145); Total Protein 8.0 g/dL (6.5-8.0)
[2025-03-02] MEDS: methADONE HCl 20 MG/2 ML ORAL.CONC 30 MG PO (06:08)
[2025-03-02 06:29] LABS: Cannabinoid Screen Urine POSITIVE (Not Detect)
[2025-03-02 08:26] VITALS: BP 127/77; PULSE 59; RESP 12; TEMP 36.7; O2SAT 94
[2025-03-02] MEDS: Naloxone HCl Nasal TAKE HOME 4 MG SPRAY 8 MG NOSTRILALT (15:31)
[2025-03-02 15:52] VITALS: BP 127/77; PULSE 59; RESP 12; TEMP 36.7; O2SAT 94
== END 2025-03-02 15:45 | disposition home or self-care (01) ==
PROVIDERS: Emergency Provider Emergency Medicine
DX: F33.1 Major depressive disorder, recurrent, moderate (principal); F10.29 Alcohol dependence with unspecified alcohol-induced disorder; F11.10 Opioid abuse, uncomplicated; Y90.0 Blood alcohol level of less than 20 mg/100 ml; F17.210 Nicotine dependence, cigarettes, uncomplicated; Z51.81 Encounter for therapeutic drug level monitoring; Z79.899 Other long term (current) drug therapy
CPT/HCPCS: 36415; 80048; 80076; 80307; 85025; 99284; S9485

== ENCOUNTER 2025-03-05 18:43 | Emergency (ER) | payer MEDICAID, SELFPAY ==
[2025-03-05 19:02] VITALS: BP 120/63; BP 150/90; PULSE 72; PULSE 86; RESP 16; TEMP 36.6; O2SAT 95; O2SAT 98; BMI 24.4
--- NOTE | 2025-03-05 19:14 | PC.NURSE ---
awake and alert, ambulates steadily, seen by , declines recobvery team, detox, states he does not want narcan. expresses desire to leave. continues to deny SI/HI
--- NOTE | 2025-03-05 19:16 | ED_ITS ---
HPI - Alcohol General Chief Complaint: ETOH/Substance Use Stated Complaint: ETOH History of Present Illness HPI narrative: Patient is a 34-year-old male, brought in by PD found sleeping on the side of the street. Patient admits to using heroin and noon. Admits to drinking earlier in the day at around 11. Patient denies any suicidal or homicidal ideation. Does not want detox. Does not want Narcan he said he has many in his pocket. And he is going to throw it out we give him 1. Patient came in at the urging of Merle CONWAY. Related Data Home Medications ?Medication ?Instructions ?Recorded ?Confirmed quetiapine 50 mg tablet 50 mg PO BEDTIME 12/11/24 methadone 10 mg/mL oral 70 mg PO DAILY 02/08/2501/16 concentrate (Methadone Intensol) Previous Rx's ?Medication ?Instructions ?Recorded pregabalin 300 mg capsule (Lyrica) 300 mg PO BID #14 c aps 02/11/25 Allergies Allergy/AdvReac Type Severity Reaction Status Date / Time No Known Allergies Allergy Mild NOT Verified 03/05/25 19:04 APPLICABLE Review of Systems Review of Systems: No SI no HI Yes all other systems are reviewed and are negative PMFSH Past Medical History Attestation statement: The following information was validated with the patient. Medical History Opiate abuse, continuous Alcohol withdrawal seizure Endocarditis Surgical History History of splenectomy Social History Social History Household Members: Unknown / Unable to assess Housing: Homeless Do you presently have visiting nurse or other home services: No Alcohol intake: current Alcohol intake frequency: 3 or more drinks per day Alcohol type: hard liquor Comment: seizure precautions in place Patient Tobacco Use Status: Current everyday Tobacco user Tobacco use type: Cigarette Cigarette Packs Per Day: 1 Cigarettes Per Day: 20.0 e-Cigarette/Vaping Use: Currently Using Second Hand Smoke Exposure: No Substance Use Type: Heroin Do you have a plan to hurt others: No Plan service: No Physical Exam ED Exam Exam: Appearance: Alert. Oriented X3. No acute distress. Eyes: Pupils equal, round and reactive to light. ENT: Pharynx normal. Neck: Normal inspection. Neck supple. No lymph nodes noted. No crepitus CVS: Normal heart rate and rhythm. Pulses normal. Normal S1 and S2 Respiratory: No respiratory distress. Breath sounds normal. No Wheezing. No rales Abdomen: Soft and nontender. No rigidity. No distention. good BS x4 Skin: Skin warm and dry. Normal skin color. Normal skin turgor. Multiple track thompson noted Extremities: No lower extremity edema. Neurovascular intact to all extremities. No Lacerations. No Rash Neuro: Oriented X 3. No motor deficit. No sensory deficit. Moving all extermities. No slurred speech Vital Signs: Vital Signs - 24 hr 03/05/25 19:02 Temperature 97.8 F Pulse Rate 72 Respiratory Rate 16 Blood Pressure 120/63 Pulse Oximetry 95 BMI result Body Mass Index 24.4 Medical Decision Making Medical Decision Making [facility] Narrative: Well-appearing not acute distress. Awake alert ambulatory. Does not want detox. Does not want any help. Ambulates with a normal gait. Aware of self. Clinically sober. Will discharge patient home. He does not want detox. He does not want Narcan. Not ready to stop yet Differential Diagnosis Differential Diagnoses: The differential diagnosis associated with the presentation includes Polysubstance abuse Admission/Observation Consideration of admission/observation: Escalation of care including admission/observation considered Social Determinants Patient?s care significantly limited by Social Determinants of Health including: Alcoholism and drug addiction in family, Problems related to primary support group and Unemployment Discharge Plan Discharge Clinical Impression: Polysubstance dependence Patient Disposition: Home, Self-Care Instructions: Polysubstance Use Disorder (ED) Prescriptions: No Action quetiapine 50 mg tablet 50 mg PO BEDTIME methadone [Methadone Intensol] 10 mg/mL Concentrate 70 mg PO DAILY pregabalin [Lyrica] 300 mg capsule 300 mg PO BID Qty: 14 0RF Referrals: [facility] [Provider Group] - 03/07/25 Print Language: Yoruba
[2025-03-05 19:27] VITALS: BP 120/63; PULSE 72; RESP 16; TEMP 36.6; O2SAT 95
== END 2025-03-05 19:27 | disposition home or self-care (01) ==
LOC: HO.ED 19:23
PROVIDERS: Emergency Provider Emergency Medicine Emergency Medical Services
DX: F10.10 Alcohol abuse, uncomplicated (principal); Z72.0 Tobacco use; F19.10 Other psychoactive substance abuse, uncomplicated
CPT/HCPCS: 99282; 99284

== ENCOUNTER 2025-03-08 01:24 | Emergency (ER) | payer MEDICAID, SELFPAY ==
[2025-03-08] VITALS (10 sets, daily range): BP systolic 109–150; BP diastolic 66–92; PULSE 68–94; RESP 12–20; TEMP -17.7–36.6; O2SAT 95–98; BMI 23.1
--- NOTE | 2025-03-08 01:44 | PC.NURSE ---
Security to bedside to complete requested safety check s/t pt's reason for presentation and reports of substance use today. Pt agreeable, calm and cooperative
--- NOTE | 2025-03-08 02:07 | ED_ITS ---
HPI - Psych General Chief Complaint: ETOH/Substance Use Stated Complaint: ETOH? Time Seen by Provider: 03/08/25 02:05 History of Present Illness ED Provider: Jaime Godoy MD HPI Narrative: [age] male limited historian had to wake him up as he was sleeping restfully in the hallway. He tells me he is feeling ?shaky ?. Acknowledges heroin alcohol use including up to 20 or 30 nips per day. Tells me he has on methadone maintenance 70 mg but has not had a dose in 2 days. Tells me ?I want inpatient detox ?. Related Data Home Medications ?Medication ?Instructions ?Recorded ?Confirmed quetiapine 50 mg tablet 50 mg PO BEDTIME 12/11/24 methadone 10 mg/mL oral 70 mg PO DAILY 02/08/2501/16 concentrate (Methadone Intensol) Previous Rx's ?Medication ?Instructions ?Recorded pregabalin 300 mg capsule (Lyrica) 300 mg PO BID #14 c aps 02/11/25 Allergies Allergy/AdvReac Type Severity Reaction Status Date / Time No Known Allergies Allergy Mild NOT Verified 03/08/25 01:29 APPLICABLE [facility] Past Medical History Medical History Opiate abuse, continuous Alcohol withdrawal seizure Endocarditis Surgical History History of splenectomy Social History Social History Household Members: Unknown / Unable to assess Housing: Homeless Do you presently have visiting nurse or other home services: No Alcohol intake: current Alcohol intake frequency: 3 or more drinks per day Alcohol type: beer and hard liquor Comment: seizure precautions in place Patient Tobacco Use Status: Current everyday Tobacco user Tobacco use type: Cigarette Cigarette Packs Per Day: 1 Cigarettes Per Day: 20.0 Smoked in Last 30 Days: Yes e-Cigarette/Vaping Use: Currently Using Second Hand Smoke Exposure: No Use of substances other than those prescribed or required for medical reasons: Yes Substance Use Type: Heroin Substance Use Frequency: Chronic Longstanding Last Used Substance: Days (ago) Advance Directives: No Advance Directives Information Provided: Yes service: No Physical Exam 2 Exam: Exam: EXAM: Gen: Drowsy. Disheveled malodorous unkempt Head: Atraumatic Eyes: Anicteric, Normal conjunctiva. Pupils 2-3 mm symmetric ENT: Moist mucosa, no pallor. ? Neck: Supple. Skin: ?No observable rash or bruising on exposed or examined skin Respiratory: Breathing comfortably, No distress.Clear to auscultation bilaterally, symmetric chest expansion, No wheeze, rales, ronchi. Cardiovascular: Regular rate and rhythm. No murmurs or rub. Well perfused periphery, warm extremities. No edema. ? Abdominal: No focal tenderness. Soft, no objective distension. No palpable masses or obvious organomegaly. ?No guarding, no rebound tenderness or other peritoneal findings. Neuro: Alert. Gross movement of all extremities intact. ? Psych: Calm. Cooperative. Not reporting SI. Does not appear psychotic MSK: No grossly visible deformity. Vital signs: See flowsheet Vital Signs: Vital Signs: Last Vital Signs Temp 0 F L 03/08/25 17:57 Pulse 90 03/08/25 17:57 Resp 18 03/08/25 17:57 BP 126/86 03/08/25 17:57 Pulse Ox 97 03/08/25 17:57 O2 Del Method Room Air 03/08/25 17:57 BMI result Body Mass Index 23.1 Course Course Course Narrative: Time: 06:42 Date: 03/08/25 Provider: Aditi Villegas, DO Patient in physician observation for psychiatric evaluation.? No acute events reported overnight. No current complaints. VS stable.? pending recovery team though we just had him evaluated and he left prior to detox bed search. Will continue to monitor. Reevaluation(s) Reevaluation #1: 03/08/25 1700 cleared for [place] home seen by RENY yeager Medications Administered Discontinued Medications Generic Name Dose Route Start Last Admin Trade Name Freq PRN Reason Stop Dose Admin Clonidine HCl 0.1 mg 03/08/25 03:36 03/08/25 03:56 Clonidine Hcl 0.1 Mg Tablet PO 03/08/25 03:37 Not Given ONCE ONE Protocol Lorazepam 2 mg 03/08/25 16:18 03/08/25 17:02 Lorazepam 1 Mg Tablet PO 2 mg Q3H PRN Administration Alcohol Withdrawal Methadone HCl 20 mg 03/08/25 03:38 03/08/25 03:52 Methadone Hcl 10 Mg Tablet PO 03/08/25 03:39 20 mg ONCE ONE Administration Methadone HCl 40 mg 03/08/25 16:45 03/08/25 17:02 Methadone Hcl 20 Mg/2 Ml Oral.Conc PO 40 mg DAILY MAXIMO Administration Naloxone HCl 8 mg 03/08/25 17:15 03/08/25 17:49 Naloxone Hcl Nasal Take Home 4 Mg [place] NOSTRILALT 03/08/25 17:16 8 mg ONCE ONE Administration Nicotine 21 mg 03/08/25 03:57 03/08/25 04:03 Nicotine 21 Mg Patch.Td24 TRANSDERMA 03/08/25 03:58 21 mg ONCE ONE Administration Ondansetron HCl 4 mg 03/08/25 03:58 03/08/25 04:03 Ondansetron Odt 4 Mg Tab.Rapdis TRANSLINGU 03/08/25 03:59 4 mg ONCE ONE Administration Pregabalin 200 mg 03/08/25 03:36 03/08/25 03:43 Pregabalin 200 Mg Capsule PO 03/08/25 03:37 200 mg ONCE ONE Administration Quetiapine Fumarate 100 mg 03/08/25 03:36 03/08/25 03:46 Quetiapine Fumarate 100 Mg Tablet PO 03/08/25 03:37 100 mg ONCE ONE Administration Thiamine HCl 100 mg 03/08/25 03:27 03/08/25 03:43 Thiamine Hcl 100 Mg Tablet PO 03/08/25 03:28 100 mg ONCE ONE Administration Medical Decision Making Medical Decision Making MDM Narrative: Medical Decision Making: [age] male homeless with polysubstance use disorder requesting alcohol detox. No clinical signs consistent with acute active alcohol withdrawal. Plan for a.m. reassessment with the patient is more cooperative. Continue monitoring for signs of withdrawal. Home medications and low methadone dose as we can not confirm his methadone dosing currently Preliminary Favored Differential Diagnosis: Malingering, polysubstance use disorder, electrolyte derangement, dehydration among additional considered etiologies Testing Interpreted Independently: ?See below for details Radiology or Lab testing Results Reviewed: ?See below for details Consults: ?See below for details Independent Historians/External Chart Reviews: ?See below for details Social Determinants of Health Impacting MDM/Planning: ?See below for details Consult Healthcare Provider Management of the patient was discussed with: Behavioral Health Provider Lab Data 03/08/25 05:56 03/08/25 05:56 Labs: Lab Results 03/08/25 03/08/25 Range/Units 05:56 09:55 WBC 7.5 (4.8-10.8) X10*3/uL RBC 4.32 L (4.60-5.80) X10*6/uL Hgb 13.7 L (14.0-18.0) g/dl Hct 41.2 L (42.0-52.0) % MCV 95.4 (80.0-98.0) fL MCH 31.7 (27.0-33.0) pg MCHC 33.3 (31.0-36.0) g/dl RDW 12.9 (11.0-16.0) % Plt Count 255 (160-400) X10*3/uL MPV 10.5 (9.4-12.4) fL Immature Gran % (Auto) 0.3 (0.0-0.4) % Neut % (Auto) 52.9 (45-73) % Lymph % (Auto) 31.4 (20-40) % [place] % (Auto) 11.0 (2-11) % Eos % (Auto) 3.2 (0-4) % Baso % (Auto) 1.2 (0-2) % Lymph # (Auto) 2.3 (1.2-4.9) X10*3/uL [place] # (Auto) 0.8 (0.1-1.2) X10*3/uL Eos # (Auto) 0.2 (0.0-0.4) X10*3/uL Baso # (Auto) 0.1 (0.0-0.2) X10*3/uL Abs Immat Gran (auto) 0.02 (0.00-0.03) X10*3/uL Absolute Neuts (auto) 4.0 (2.0-8.3) x10*3/uL Absolute Nucleated RBC 0.000 (0.0-0.012) X10*3/uL Nucleated RBC % (auto) 0.0 (0.0-0.2) /100WBC Sodium 140 (135-145) mmol/L Potassium 3.5 (3.3-5.1) mmol/L Chloride 101 (96-108) mmol/L Carbon Dioxide 30 H (22-29) mmol/L Anion Gap 13 (12-20) BUN 18 H (9-16) mg/dL Creatinine 0.67 (0.5-1.4) mg/dL Estim Creat Clear Calc 166.2 Estimated GFR > 60 Random Glucose 110 (60-115) mg/dL Calcium 8.7 (8.4-10.2) mg/dL Magnesium 2.0 (1.6-2.6) mg/dL Total Bilirubin 0.4 (0.0-1.0) mg/dL AST 63 H (5-37) U/L ALT 92 H (0-40) U/L Alkaline Phosphatase 82 (39-117) U/L Total Protein 7.3 (6.5-8.0) g/dL Albumin 3.7 (3.5-5.0) g/dL Urine Opiates Screen POSITIVE H (Not Detect) Ur Buprenorphine Scrn Not Detected (Not Detect) ng/mL Ur Oxycodone Screen Not Detected (Not Detect) ng/mL Urine Methadone Screen Positive H (Not Detect) ng/mL Urine Fentanyl Screen POSITIVE H (Not Detect) Ur Barbiturates Screen POSITIVE H (Not Detect) Ur Phencyclidine Scrn Not Detected (Not Detect) Ur Amphetamines Screen Not Detected (Not Detect) U Benzodiazepines Scrn POSITIVE H (Not Detect) Urine Cocaine Screen POSITIVE H (Not Detect) U Marijuana (THC) Screen Not Detected (Not Detect) Ethyl Alcohol < 10 mg/dL Discharge Plan Discharge Clinical Impression: Opioid use disorder, Alcoholic intoxication Patient Disposition: Home, Self-Care Instructions: Opioid Use Disorder (ED) Additional Instructions: You were seen in our Emergency Department today for treatment of a behavioral health issue. It is important after your visit that you follow up with either your behavioral health provider or a primary care doctor within 7 days.? If you have trouble finding a therapist you can reach out to [address] [phone] The National Suicide and Crisis Lifeline can be reached 7 days a week 24 hours a day.? Call 988 to speak with someone.? Return for any worsening symptoms or concerns such as thoughts of self harm or harm to others. Please call 911 if you feel your mental health is worsening.? You also may have been given naloxone (narcan) to take home with you. This medication is used to potentially treat opiate overdose. If you decide you want to stop or cut down on how much you?re using, you can call or walk into our outpatient Addiction Treatment office: [facility] (M-F 9am-5p) [address], [address] [phone] You may have been provided with safer injection?items, please take time to take care of YOU and your health. Use new supplies whenever possible to lessen the chances of infections and other illnesses.? ?If you need more supplies, please go [facility],? [address] [place] [address] [place] you can call or text to coordinate delivery of safer supplies. You were also provided a list of several treatment providers in the area.? If you experience any worsening symptoms you cannot control please return to the ED or call 911. Please follow up at your next appointment. Things to look out for are fevers, chest pain, shortness of breath, severe pain, dizziness, fainting or any other concerns. Prescriptions: No Action quetiapine 50 mg tablet 50 mg PO BEDTIME methadone [Methadone Intensol] 10 mg/mL Concentrate 70 mg PO DAILY pregabalin [Lyrica] 300 mg capsule 300 mg PO BID Qty: 14 0RF Referrals: [facility] [Provider Group] Interventions: ED Discharge Assessment Last Done: 03/08/25 17:57 Discharge Date/Time: 03/08/25 17:57 Print Language: Bur[place]ian
[2025-03-08] MEDS: Nicotine 21 MG PATCH.TD24 TRANSDERMA (04:03)
--- NOTE | 2025-03-08 05:20 | MHC.CARE ---
CARE Team consulted with Dr. Godoy regarding patient being intoxicated with no order for a tox screen. Patient reported he is seeking detox and Dr. Godoy clarified the consult is for Recovery, not CARE Team. CARE Team attempted to meet with patient who was asleep in the hallway of ED16H. He was difficult to arouse. Patient reports he is here for detox, he denies SI, but his speech is low, mumbled and slurred. CARE Team Clinician unable to assess patient as he is not fully alert. Unclear if he is intoxicated. CARE Team will follow up with patient in a few hours to re attempt evaluation.
[2025-03-08 06:02] LABS: MANUAL DIFF FLAG NO
[2025-03-08 06:04] LABS: Hematocrit 41.2 % (42.0-52.0); Hemoglobin 13.7 g/dl (14.0-18.0); Imm Gran Abs Auto 0.02 X10*3/uL (0.00-0.03); Imm Gran Pct Auto 0.3 % (0.0-0.4); Lymphocytes Absolute Auto 2.3 X10*3/uL (1.2-4.9); Mean Corpuscular HGB Conc 33.3 g/dl (31.0-36.0); Mean Corpuscular Hemoglobin 31.7 pg (27.0-33.0); Mean Corpuscular Volume 95.4 fL (80.0-98.0); NRBC Abs Auto 0.000 X10*3/uL (0.0-0.012); NRBC Pct Auto 0.0 /100WBC (0.0-0.2); Platelet Count 255 X10*3/uL (160-400); Red Blood Count 4.32 X10*6/uL (4.60-5.80); White Blood Count 7.5 X10*3/uL (4.8-10.8)
[2025-03-08 06:18] LABS: Alanine Aminotransferase 92 U/L (0-40); Albumin Level 3.7 g/dL (3.5-5.0); Alkaline Phosphatase 82 U/L (39-117); Anion Gap 13 (12-20); Aspartate Amino Transferase 63 U/L (5-37); Blood Urea Nitrogen 18 mg/dL (9-16); Calcium 8.7 mg/dL (8.4-10.2); Carbon Dioxide 30 mmol/L (22-29); Chloride 101 mmol/L (96-108); Creatinine Clr Calc Pharmacy 166.2; Estimated Glomerular Filt Rate > 60; Magnesium 2.0 mg/dL (1.6-2.6); Potassium 3.5 mmol/L (3.3-5.1); Sodium 140 mmol/L (135-145); Total Protein 7.3 g/dL (6.5-8.0)
[2025-03-08 10:09] LABS: Cannabinoid Screen Urine Not Detected (Not Detect)
--- NOTE | 2025-03-08 10:25 | MHC.CARE ---
Pt will be a detox bed search and is requesting to be referred out of the area.
--- NOTE | 2025-03-08 10:41 | MHC.CARE ---
T/W spoke with [facility] who stated they have male detox beds and asked to do a phone pre-screen with Pt. Pt is extremely sedated, cannot open his eyes and cannot engage at this time. Pt will not be bed searched for detox until he is awake and able to engage.
--- NOTE | 2025-03-08 16:36 | PC.NURSE ---
pt sleeping but easily arousable, respirations even and unlabored, reports feeling nauseas/abd pain/and feeling like he is withdrawing/visible hand tremor when awake but no tremor when sleeping, pt also reports that he takes methadone, at [facility] in [place], called and pt last dosed on 02/25/25 70mg at 0803 and had one take home bottle, spoke with Og HOWARD
[2025-03-08] MEDS: methADONE HCl 20 MG/2 ML ORAL.CONC 40 MG PO (17:02)
[2025-03-08] MEDS: Naloxone HCl Nasal TAKE HOME 4 MG SPRAY 8 MG NOSTRILALT (17:49)
== END 2025-03-08 17:57 | disposition home or self-care (01) ==
PROVIDERS: Emergency Provider Emergency Medicine
DX: F11.90 Opioid use, unspecified, uncomplicated (principal); F10.129 Alcohol abuse with intoxication, unspecified; Y90.0 Blood alcohol level of less than 20 mg/100 ml; Z51.81 Encounter for therapeutic drug level monitoring; Z79.899 Other long term (current) drug therapy; Z59.00 Homelessness unspecified
CPT/HCPCS: 36415; 80053; 80307; 83735; 85025; 99285; S9485